=== PATIENT | female | born 1960 | race Caucasian/White ===

== ENCOUNTER → 2021-03-18 08:05 | Outpatient (BNVA) | payer BC, SELFPAY | PROVIDERS: PCP Internal Medicine; Visit Provider Internal Medicine ==

== ENCOUNTER → 2021-04-29 08:24 | Outpatient (BNVA) | payer BC, SELFPAY | PROVIDERS: PCP Internal Medicine; Visit Provider Internal Medicine | DX: G43.711 Chronic migraine without aura, intractable, with status migrainosus (principal) | CPT/HCPCS: 64615 ==

== ENCOUNTER → 2021-05-27 14:41 | Outpatient (BNVA) | payer BC, SELFPAY | PROVIDERS: PCP Internal Medicine; Visit Provider Internal Medicine ==

== ENCOUNTER 2021-06-13 08:00 | Outpatient (REF) | payer BC, SELFPAY ==
--- NOTE | ~2021-06-13 | MR_ITS ---
EXAMINATION: MR LUMBAR SPINE WITHOUT CONTRAST CLINICAL INFORMATION: Sciatica, left side. COMPARISON: None TECHNIQUE: MRI of the lumbar spine was obtained using routine sequences without contrast. FINDINGS: The lumbar vertebral bodies maintain normal heights. There is mild retrolisthesis of L1 on L2 and L2 on L3. There is multilevel intervertebral disc height loss. No bone marrow edema is seen. There is a prominent hemangioma at L3. The distal spinal cord appears normal. The conus medullaris terminates normally at the L1 level. The extraspinal soft tissues are within normal limits. SPINAL LEVELS: T12-L1: Right paracentral protrusion. No spinal canal or neural foraminal stenosis. L1-L2: Disc bulging with right paracentral extrusion with superior migration. Mild facet arthropathy. No spinal canal stenosis. Moderate left and mild right neural foraminal stenosis. L2-L3: Disc bulging asymmetric to the left with moderate left and mild right facet arthropathy resulting in mild spinal canal stenosis with left subarticular stenosis. Left and right foraminal protrusions resulting in compression of the left more than right L2 nerve roots. L3-L4: Disc bulging with severe facet arthropathy. No spinal canal stenosis. Right foraminal protrusion. Left more than right neural foraminal stenosis with compression of both exiting L3 nerve roots. L4-L5: Disc bulging with central protrusion and moderate facet arthropathy. No spinal canal stenosis. Bilateral neural foraminal stenosis with compression of both exiting L4 nerve roots. L5-S1: Disc bulging with facet arthropathy. No spinal canal stenosis. No nerve root compression. MR/MR lumbar spine wo con IMPRESSION: Multilevel degenerative spondylotic changes without evidence of high-grade spinal canal stenosis. Bilateral foraminal nerve root compression is seen at the L2-L3, L3-L4, and L4-L5 levels.
--- NOTE | ~2021-06-13 | XR_ITS ---
EXAMINATION: PRE-MRI LIMITED ORBITAL/FACIAL SERIES. CLINICAL INFORMATION: Pre-MRI orbits. Metal close eyes 15 years ago COMPARISON: None TECHNIQUE: Lateral facial bones/orbits and sidhu views with eyes looking up and down. FINDINGS: No radiopaque foreign body/metallic material is seen in the region of the orbits. No destructive bony lesion. There is partial opacification of the left maxillary sinus. Mastoid air cells appear aerated. XR/XR pre mri screening IMPRESSION: No metallic foreign body seen about the region of the orbits.
== END 2021-06-13 08:01 | disposition home or self-care (01) ==
LOC: HO.MRI 08:00
PROVIDERS: PCP Internal Medicine; Visit Provider Internal Medicine
DX: M54.32 Sciatica, left side (principal)
CPT/HCPCS: 72148

== ENCOUNTER → 2021-08-19 15:07 | Outpatient (BNVA) | payer BC, SELFPAY | PROVIDERS: PCP Internal Medicine; Visit Provider Internal Medicine ==

== ENCOUNTER → 2021-08-20 09:00 | Outpatient (BNVA) | payer BC, SELFPAY | PROVIDERS: PCP Internal Medicine; Visit Provider Internal Medicine | DX: G43.711 Chronic migraine without aura, intractable, with status migrainosus (principal) | CPT/HCPCS: 64615; J0585 ==

== ENCOUNTER 2021-12-27 05:54 | Outpatient (REF) | payer BC, SELFPAY | END 2021-12-27 05:55 | disposition home or self-care (01) | LOC: HO.RADIR 05:54 | PROVIDERS: Visit Provider Internal Medicine | DX: G43.711 Chronic migraine without aura, intractable, with status migrainosus (principal) | CPT/HCPCS: 64615; J0585 ==

== ENCOUNTER → 2022-03-21 09:47 | Outpatient (BNVA) | payer BC, SELFPAY | PROVIDERS: PCP Internal Medicine; Visit Provider Internal Medicine | DX: G43.711 Chronic migraine without aura, intractable, with status migrainosus (principal) | CPT/HCPCS: 64615 ==

== ENCOUNTER → 2022-06-06 10:52 | Outpatient (BNVA) | payer BC, SELFPAY | PROVIDERS: PCP Internal Medicine; Visit Provider Internal Medicine | DX: G43.711 Chronic migraine without aura, intractable, with status migrainosus (principal) | CPT/HCPCS: 64615; J0585 ==

== ENCOUNTER → 2022-08-15 09:07 | Outpatient (BNVA) | payer BC, SELFPAY | PROVIDERS: PCP Internal Medicine; Visit Provider Internal Medicine | DX: G43.711 Chronic migraine without aura, intractable, with status migrainosus (principal) | CPT/HCPCS: 64615 ==

== ENCOUNTER → 2022-11-10 11:34 | Outpatient (BNVA) | payer BC, SELFPAY | PROVIDERS: PCP Internal Medicine; Visit Provider Internal Medicine | DX: G43.711 Chronic migraine without aura, intractable, with status migrainosus (principal) | CPT/HCPCS: 64615 ==

== ENCOUNTER → 2023-02-09 11:29 | Outpatient (BNVA) | payer BC, SELFPAY | PROVIDERS: PCP Internal Medicine; Visit Provider Internal Medicine | DX: G43.711 Chronic migraine without aura, intractable, with status migrainosus (principal) | CPT/HCPCS: 64615; J0585 ==

== ENCOUNTER 2023-05-11 07:58 | Outpatient (AMB) | payer BC, SELFPAY ==
--- NOTE | 2023-05-11 08:02 | MHC.OFFVIS ---
Intake Vital Signs 05/11/23 08:08 Height 5 ft 7 in Weight 190 lb BMI 29.8 BP 126/88 Blood Pressure Location Lt brachial Position Sitting Respiration 14 Pulse 74 Pulse Source Pulse Oximeter Pulse Oximetry (%) 98 Oxygen Delivery Method Room Air Intake Visit Reasons: Botox Allergies Penicillins Allergy (Severe, Verified 05/11/23 08:09) Anaphylaxis Medication List - Last Reconciled 05/11/23 by Marilee Medina LPN cetirizine (24Hour Allergy) 10 mg PO DAILY PRN cholecalciferol (vitamin D3) 25 mcg PO DAILY dextroamphetamine-amphetamine 10 mg 10 mg PO DAILY dulaglutide (Trulicity) 3 mg subcut QWEEK fluoxetine 10 mg PO BID metformin 1,000 mg PO BID [id number]-[id number]-[id number] mcg (Centrum Silver Men) 1 tab PO DAILY onabotulinumtoxinA (Botox) 155 units intradermal ONCE sumatriptan succinate 25 mg PO Q2-4H PRN tamsulosin 0.4 mg PO BEDTIME vitamin A-vitamin C-vit E-min 1 tab PO DAILY HPI Botox HPI Details 62-year-old male who presents today to the office for a Botox treatment. Denies any recent cough, cold, infection, fever or other significant changes in medical history since last office visit. [facility] Medical History (Updated 05/27/21 @ 15:41 by Wayne Alcala MD) Tinnitus, left ear NAFLD (nonalcoholic fatty liver disease) HTN (hypertension) ADHD Depression Allergic rhinitis Migraines DM type 2 (diabetes mellitus, type 2) Review of Systems Const All systems reviewed & are unremarkable except as noted in HPI and below Physical Exam Vital Signs: Last Vital Signs Pulse 74 05/11/23 08:08 Resp 14 05/11/23 08:08 BP 126/88 05/11/23 08:08 Pulse Ox 98 05/11/23 08:08 Oxygen Delivery Method Room Air 05/11/23 08:08 BMI result Body Mass Index 29.8 General: Appears afebrile. Alert and oriented. Mood and affect appropriate. Follows and participates in conversation appropriately. Respiratory effort is unlabored. Able to transition from sit to stand unassisted. Ambulates with bilaterally normal heel strike and toe off. Office Procedures Botulinum toxin Injection Details: Chemodenervation of Scalp and Neck for Chronic Migraine (155units as per protocol approved by FDA) After obtaining written consent, pre-procedure blood pressure and heart rate were stable and recorded in the nursing record. The patient was placed in the sitting position. Bilaterally, 31 points along bonding machine setter (2 sites), procerus (1 site), frontalis (4 sites), temporalis (8 sites), occipitalis (6 sites), cervical paraspinals (4 sites), and trapezius (6 sites) were identified and prepped with alcohol. Using sterile technique, a 30 gauge 0.5 inch needle (for all sites other than trapezius) and 25 gauge 1.5 inch (for trapezius only) needle was introduced into each muscle and 5 units per site was injected. A total of 155 units were used. Aspirations were negative for blood, CSF and air prior to injection at all sites. The needle was removed, skin cleansed and a sterile bandage was applied where needed. The patient tolerated the procedure well and no complications were encountered. Following the procedure the patient's vital signs were stable. The patient was discharged home in good condition with post-procedural instructions. Time Out: Immediately prior to the procedure, the following was verbally confirmed that there is a signed consent form and that the correct patient, planned procedure, site and side are consistent with documentation and that necessary equipment and/or blood products are available prior to the start of the case. Complications: none EBL: <5 cc 04043 - Migraine Procedure code (CPT) selection complete Office Meds onabotulinumtoxinA 100 unit solution for injection Performing Provider: Wayne Alcala MD Performing Location: [facility] [place] [place] [facility] Administered by: Wayne Alcala MD on 05/11/23 11:32 Dose Route Admin Location Dispensed Lot Number Expiration Date [facility] [employer] Super[employer] 100 unit IM 1 ea [id number] 06/10/25 incobotulinumtoxinA 100 unit intramuscular solution Performing Provider: Wayne Alcala MD Performing Location: [facility] [place] [place] [facility] Administered by: Wayne Alcala MD on 05/11/23 11:32 Dose Route Admin Location Dispensed Lot Number Expiration Date [facility] [employer] Technical Supervisor 60 unit IM 1 ea [id number] 06/10/25 Assessment & Plan Assessment & Plan (1) Migraines: Code(s): G43.909 - Migraine, unspecified, not intractable, without status migrainosus Qualifiers: Intractability: intractable Migraine type: chronic without aura Status migrainosus presence: with status migrainosus Qualified Code(s): G43.711 - Chronic migraine without aura, intractable, with status migrainosus Plan Patient is status post intramuscular Botox injections for migraine. Patient tolerated procedure well and was discharged home in stable condition with discharge instructions. All questions were answered. Scribed for Dr. Alcala by Derick Manning, medical dermatologist, on 05/11/2023. I, Dr. Alcala, have personally reviewed and agree with the information entered by the scribe. Orders: Orders AMB Botulinum toxin Injection Today G43.909 - Migraine, unspecified, not intractable, without status migrainosus Coding Level of Care Code Procedure Only Diagnoses Intractable chronic migraine without aura and with status migrainosus G43.711 Intractability: intractable Migraine type: chronic without aura Status migrainosus presence: with status migrainosus CPT Codes Botox Injection - Botox 3: 78900 - Migraine ([id number])
[2023-05-11 08:08] VITALS: BP 126/88; PULSE 74; RESP 14; O2SAT 98; BMI 29.8
== END 2023-05-11 08:50 | disposition home or self-care (01) ==
PROVIDERS: PCP Internal Medicine; Visit Provider Internal Medicine
DX: G43.711 Chronic migraine without aura, intractable, with status migrainosus (principal)
CPT/HCPCS: 64615

== ENCOUNTER → 2023-05-11 07:58 | Outpatient (BNVA) | payer BC, SELFPAY | PROVIDERS: PCP Internal Medicine; Visit Provider Internal Medicine | DX: G43.711 Chronic migraine without aura, intractable, with status migrainosus (principal) | CPT/HCPCS: 64615; J0585; J0588 ==

== ENCOUNTER 2023-08-21 08:20 | Outpatient (AMB) | payer BC, SELFPAY ==
[2023-08-21 08:22] VITALS: PULSE 71; RESP 12; O2SAT 99; BMI 29.8
--- NOTE | 2023-08-21 08:22 | A.OFFVIS_ITS ---
Intake Vital Signs 08/21/23 08:22 Height 5 ft 7 in Weight 190 lb BMI 29.8 Blood Pressure Location Lt brachial Position Sitting Respiration 12 Pulse 71 Pulse Source Pulse Oximeter Pulse Oximetry (%) 99 Oxygen Delivery Method Room Air Intake Visit Reasons: Botox/confirmed Intake Note: Pt's BP 172/98- wouldn't save in above box Allergies Penicillins Allergy (Severe, Verified 08/21/23 08:25) Anaphylaxis Medication List - Last Reconciled 08/21/23 by Marilee Medina LPN cetirizine (24Hour Allergy) 10 mg PO DAILY PRN cholecalciferol (vitamin D3) 25 mcg PO DAILY dextroamphetamine-amphetamine 10 mg 10 mg PO DAILY dulaglutide (Trulicity) 3 mg subcut QWEEK fluoxetine 10 mg PO BID metformin 1,000 mg PO BID [id number]-[id number] [id number] mcg (Centrum Silver Men) 1 tab PO DAILY onabotulinumtoxinA (Botox) 155 units intradermal ONCE sumatriptan succinate 25 mg PO Q2-4H PRN tamsulosin 0.4 mg PO BEDTIME vitamin A-vitamin C-vit E-min 1 tab PO DAILY HPI Botox/confirmed HPI Details 62-year-old male who presents today to t he office for a Botox in [facility]. He has been receiving intramuscular Botox injections for migraine. Denies any recent cough, cold, infection, fever or other significant changes in medical history since last office visit. He reports neck and shoulder pain, which is bothersome. He has numbness in his arms and hands. He has difficulty sleeping on the side. He has tried physical therapy in the past without much benefit. He is interested in proceeding with an MRI scan of his neck to assess candidacy for further interventions. [facility] Medical History (Updated 08/21/23 @ 10:21 by Wayne Alcala MD) Tinnitus, left ear NAFLD (nonalcoholic fatty liver disease) HTN (hypertension) ADHD Depression Allergic rhinitis Migraines DM type 2 (diabetes mellitus, type 2) Review of Systems Const All systems reviewed & are unremarkable except as noted in HPI and below Physical Exam Vital Signs: Last Vital Signs Pulse 71 08/21/23 08:22 Resp 12 08/21/23 08:22 Pulse Ox 99 01/12/24 08:22 Oxygen Delivery Method Room Air 08/21/23 08:22 BMI result Body Mass Index 29.8 General: Appears afebrile. Alert and oriented. Mood and affect appropriate. Follows and participates in conversation appropriately. Respiratory effort is unlabored. Able to transition from sit to stand unassisted. Ambulates with bilaterally normal heel strike and toe off. Office Procedures Botulinum toxin Injection Details: Chemodenervation of Scalp and Neck for Chronic Migraine (155 units as per protocol approved by FDA) After obtaining written consent, pre-procedure blood pressure and heart rate were stable and recorded in the nursing record. The patient was placed in the sitting position. Bilaterally, 31 points along frame straightener (2 sites), procerus (1 site), frontalis (4 sites), temporalis (8 sites), occipitalis (6 sites), cervical paraspinals (4 sites), and trapezius (6 sites) were identified and prepped with alcohol. Using sterile technique, a 27 gauge 0.5 inch needle (for all sites other than trapezius) and 25 gauge 1.5 inch (for trapezius only) needle was introduced into each muscle and 5 units per site was injected. A total of 155 units were used. Aspirations were negative for blood, CSF and air prior to injection at all sites. The needle was removed, skin cleansed and a sterile bandage was applied where needed. The patient tolerated the procedure well and no complications were encountered. Following the procedure the patient's vital signs were stable. The patient was discharged home in good condition with post-procedural instructions. Time Out: Immediately prior to the procedure, the following was verbally confirmed that there is a signed consent form and that the correct patient, planned procedure, site and side are consistent with documentation and that necessary equipment and/or blood products are available prior to the start of the case. Complications: none EBL: <5 cc 65683 - Migraine Procedure code (CPT) selection complete Office Meds onabotulinumtoxinA 100 unit solution for injection Performing Provider: Wayne Alcala MD Performing Location: [facility] [place] [facility] Administered by: Wayne Alcala MD on 08/21/23 10:17 Dose Route Admin Location Dispensed Lot Number Expiration Date [facility] Armhole Presser 155 unit IM 155 ea [id number] 10/08/25 Results Reviewed Results Reviewed: No imaging is available for review. Assessment & Plan Assessment & Plan (1) Migraines: Code(s): G43.909 - Migraine, unspecified, not intractable, without status migrainosus Qualifiers: Migraine type: chronic without aura Status migrainosus presence: with status migrainosus Intractability: intractable Qualified Code(s): G43.711 - Chronic migraine without aura, intractable, with status migrainosus (2) Cervical radiculitis: Code(s): M54.12 - Radiculopathy, cervical region Plan Patient is status post intramuscular Botox injections for migraine. Patient tolerated procedure well and was discharged home in stable condition with discharge instructions. All questions were answered. Ordered MRI scan for cervical pain and radicular symptoms. Follow-up to review MRI results when it is done. Scribed for Dr. Alcala by Derick Manning, esthetician and manager medical spa, on 08/21/2023. I, Dr. Alcala, have personally reviewed and agree with the information entered by the scribe. Orders: Orders AMB Botulinum toxin Injection Today G43.909 - Migraine, unspecified, not intractable, without status migrainosus MR cervical spine wo con Today M54.12 - Radiculopathy, cervical region Coding Level of Care Code Est Pt Level 3 (51009) Diagnoses Intractable chronic migraine without aura and with status migrainosus G43.711 Migraine type: chronic without aura Status migrainosus presence: with status migrainosus Intractability: intractable Cervical radiculitis M54.12 CPT Codes Botox Injection - Botox 3: 72094 - Migraine ([id number])
== END 2023-08-21 08:45 | disposition home or self-care (01) ==
PROVIDERS: PCP Internal Medicine; Visit Provider Internal Medicine
DX: M54.12 Radiculopathy, cervical region (principal); G43.909 Migraine, unspecified, not intractable, without status migrainosus
CPT/HCPCS: 64615; 99213

== ENCOUNTER → 2023-08-21 08:20 | Outpatient (BNVA) | payer BC, SELFPAY | PROVIDERS: PCP Internal Medicine; Visit Provider Internal Medicine | DX: G43.711 Chronic migraine without aura, intractable, with status migrainosus (principal); M54.12 Radiculopathy, cervical region | CPT/HCPCS: 64615; J0585 ==

== ENCOUNTER 2023-09-17 19:25 | Outpatient (REF) | payer BC, SELFPAY ==
--- NOTE | ~2023-09-17 | MR_ITS ---
EXAMINATION: MR CERVICAL SPINE WITHOUT CONTRAST CLINICAL INFORMATION: 62-year-old with cervical radiculopathy. COMPARISON: None available. TECHNIQUE: MRI of the cervical spine was obtained using routine sequences without contrast. FINDINGS: Alignment: Mild mid cervical levocurvature noted, slightly convex to the left at C5. There is 2 mm of anterolisthesis at C6-C7. There is normal lordotic curvature. Craniocervical Junction/C1-C2 Articulations: Intact and aligned. There are degenerative changes at the atlantodental joint. Visualized Intracranial Structures: Within normal limits. Vertebral Bodies: Vertebral body heights are well maintained. Disc Spaces and Endplates: The intervertebral disc space heights are well maintained. There are minor degrees of anterior marginal endplate spurring between C4-C5 and C6-C7 inclusive. Endplates appear grossly intact. Bone Marrow: No suspicious marrow-replacing process or bone marrow edema. C2-C3: Central disc protrusion noted with mild indentation of the ventral thecal sac without cord impingement. There is uncovertebral spurring, right more than left, with marked right-sided and minimal left-sided facet arthropathy. There is cbxaznbg-af-uthlly right-sided and mild left-sided neural foraminal stenosis. Ligamentum flavum thickening is noted with no significant spinal canal stenosis. C3-C4: Broad-based central disc protrusion and right paramedian disc osteophyte complex noted with effacement of the ventral dural sac asymmetric to the right contacting the ventral spinal cord on the right. Mild spinal canal stenosis is noted. There is uncovertebral spurring and facet arthropathy, right more than left, with zzwbsdlj-er-avxzkd right-sided and mild left-sided foraminal stenosis. C4-C5: Shallow broad-based central disc protrusion, with flattening of the ventral dural sac without cord impingement. Ligamentum flavum thickening is noted with mild spinal canal stenosis. There is uncovertebral spurring and facet arthropathy with moderate left and mild right-sided neural foraminal stenosis. C5-C6: Central to left paramedian extruded disc herniation with mild cephalad migration, which may be partially calcified. There is effacement of the ventral dural sac asymmetric to the left, with moderate left-sided ventral cord impingement/deformity, with ligamentum flavum thickening and moderate central spinal canal stenosis, asymmetric to the left. Uncovertebral spurring and facet arthropathy is also noted bilaterally with severe left-sided and moderate right-sided neural foraminal stenosis. C6-C7: Slight unroofing of the posterior disc margin is noted with a superimposed central to right paramedian disc herniation and effacement of the ventral dural sac, asymmetric to the right, abutting the ventral spinal cord with mild right-sided ventral cord deformity/impingement. Ligament flavum thickening is noted with moderate spinal canal stenosis, asymmetric to the right. Uncovertebral spurring and facet arthropathy is noted, right more than left, with ntmgcvnt-fw-ximlcz right-sided neural foraminal stenosis. Small bilateral perineural cysts in the neural foramina. C7-T1: No disc herniation or canal stenosis. Moderate bilateral facet joint arthropathy noted with uncovertebral spurring bilaterally. Fsqlhlst-mm-aupxjk bilateral neural foraminal stenosis is noted. A 7 mm perineural cyst in the left neural foramen. SPINAL CORD: Allowing for artifacts, no definite focal spinal cord lesion, edema or syrinx. EXTRACRANIAL SOFT TISSUES: There is a 1 cm T2 bright focus partially imaged in the right parotid gland superficial lobe, which is nonspecific. Signal voids are noted in the visualized major arterial and venous structures. MR/MR cervical spine wo con IMPRESSION: 1. Mild mid cervical levocurvature noted with mild anterolisthesis at C6-C7. 2. Multilevel central disc herniations and disc osteophyte complex as described above with multilevel ventral cord impingement/deformity and multilevel envm-xyh-cyymsclj spinal canal stenosis, most apparent at C5-C6 and C6-C7. 3. Multilevel DJD as described above with multilevel bilateral bony neural foraminal stenosis as detailed by level above. 4. A 1 cm T2 bright focus in the superficial lobe of the right parotid gland which is nonspecific. Recommend correlation with physical examination and consider focused ultrasound of the right parotid gland for further assessment.
== END 2023-09-17 19:26 | disposition home or self-care (01) ==
LOC: HO.MRI 19:25
PROVIDERS: PCP Internal Medicine; Visit Provider Internal Medicine
DX: M54.12 Radiculopathy, cervical region (principal)
CPT/HCPCS: 72141

== ENCOUNTER 2023-10-22 06:12 | Outpatient (REF) | payer BC, SELFPAY ==
--- NOTE | ~2023-10-22 | FL_ITS ---
EXAMINATION: XR FLUOROSCOPY WITH IMAGES CLINICAL INFORMATION: Cervical radiculopathy. COMPARISON: None available. TECHNIQUE: Fluoroscopy Supervised By: Dr. Wayne Alcala. Fluoroscopy Time: 1.0 minutes. Cumulative Dose: 7.77 mGy. DAP: 0.0314 mGym2. Images: 4. FINDINGS: The submitted images show an injection needle overlapping the cervical spine and injected epidural contrast. FL/FL guidance in treatment room IMPRESSION: Intraoperative fluoroscopic guidance is provided during cervical spinal pain management procedure. Please see the patient's Operative Report for full procedural details.
== END 2023-10-22 06:13 | disposition home or self-care (01) ==
LOC: CF 06:12
PROVIDERS: Visit Provider Internal Medicine
DX: M54.12 Radiculopathy, cervical region (principal)
CPT/HCPCS: 62321; J1100; J2795; Q9967

== ENCOUNTER 2023-10-22 12:57 | Outpatient (AMB) | payer BC, SELFPAY ==
[2023-10-22 14:06] VITALS: BP 142/90; PULSE 76; RESP 16; O2SAT 95; BMI 29.8
--- NOTE | 2023-10-22 14:06 | MHC.OFFVIS ---
Intake Vital Signs 10/22/23 14:06 10/22/23 14:07 Height 5 ft 7 in Weight 190 lb BMI 29.8 BP 142/90 H 140/80 H Blood Pressure Location Lt brachial Lt brachial Position Sitting Sitting Respiration 16 18 Pulse 76 80 Pulse Source Pulse Oximeter Pulse Oximeter Pulse Oximetry (%) 95 97 Oxygen Delivery Method Room Air Room Air Comment Pre-Op Post-Op Intake Visit Reasons: Right C7-T1 KENNEDY Allergies Penicillins Allergy (Severe, Verified 08/21/23 08:25) Anaphylaxis HPI Right C7-T1 KENNEDY HPI Details Patient presents for scheduled procedure. Denies any recent cough, cold, infection, fever or other significant changes in medical history since last office visit. [facility] Medical History (Updated 08/21/23 @ 10:21 by Wayne Alcala MD) Tinnitus, left ear NAFLD (nonalcoholic fatty liver disease) HTN (hypertension) ADHD Depression Allergic rhinitis Migraines DM type 2 (diabetes mellitus, type 2) Physical Exam Vital Signs: Last Vital Signs Pulse 80 10/22/23 14:07 Resp 18 10/22/23 14:07 BP 140/80 H 10/22/23 14:07 Pulse Ox 97 10/22/23 14:07 Oxygen Delivery Method Room Air 10/22/23 14:07 BMI result Body Mass Index 29.8 Office Procedures Joint Injection/Drain Joint Injection/Drain Details: Interlaminar epidural steroid injection, C7-T1, right parasaggital After obtaining written consent, pre-procedure blood pressure and heart rate were stable and recorded in the nursing record. The patient was placed in the prone position. The [anatomic] area was widely prepped with chloraprep and draped in sterile fashion. Fluoroscopic guidance was used to identify the desired interlaminar space and for needle placement. Subcutaneous 0.5% lidocaine was used to anesthetize the skin overlying the target. A 20-gauge Wynn needle was advanced to the epidural space using loss of resistance to contrast technique under fluoroscopic AP and contralateral oblique views. There was no evidence of heme or CSF and no paresthesias were elicited with needle placement. Confirmation of epidural needle placement was performed with 3 cc of omnipaque 180. Next 3 ml 0.5% lidocaine mixed with 10 mg dexamethasone was administered epidurally with no pain elicited on injection. The needle tract tubing was then cleared with 1 ml of 0.5% lidocaine. The needle was removed, skin cleansed and a sterile bandage was applied. The patient tolerated the procedure well and no complications were encountered. Following the procedure the patient's vital signs were stable. The patient was discharged home in good condition with post-procedural instructions. Time Out: Immediately prior to the procedure, the following was verbally confirmed that there is a signed consent form and that the correct patient, planned procedure, site and side are consistent with documentation and that necessary equipment and/or blood products are available prior to the start of the case. Complications: none EBL: <5 cc Coding 00026 - Cervical Epidural/Interlaminar with fluoroscopy Procedure code (CPT) selection complete Assessment & Plan Assessment & Plan (1) Cervical radiculitis: Code(s): M54.12 - Radiculopathy, cervical region Plan Patient is status post right parasagittal C7-T1 interlaminar KENNEDY. Patient tolerated procedure well and was discharged home in stable condition with discharge instructions. All questions were answered. We will follow-up via telephone or in clinic to assess response to therapy. A follow-up appointment was made during today's visit. Coding Level of Care Code Procedure Only Diagnoses Cervical radiculitis M54.12 CPT Codes Coding - Joint 10: 60843 - Cervical Epidural/Interlaminar with fluoroscopy ([id number])
[2023-10-22 14:07] VITALS: BP 140/80; PULSE 80; RESP 18; O2SAT 97
== END 2023-10-22 14:01 | disposition home or self-care (01) ==
LOC: HO.PMCPRC 12:57
PROVIDERS: PCP Internal Medicine; Visit Provider Internal Medicine
DX: M54.12 Radiculopathy, cervical region (principal)
CPT/HCPCS: 62321

== ENCOUNTER 2023-11-20 08:24 | Outpatient (AMB) | payer BC, SELFPAY ==
--- NOTE | 2023-11-20 08:34 | A.OFFVIS_ITS ---
Intake Vital Signs 11/20/23 08:36 Height 5 ft 7 in Weight 190 lb BMI 29.8 BP 155/82 H Blood Pressure Location Lt brachial Position Sitting Respiration 14 Pulse 64 Pulse Source Pulse Oximeter Pulse Oximetry (%) 97 Oxygen Delivery Method Room Air Intake Visit Reasons: Botox injection Allergies Penicillins Allergy (Severe, Verified 11/20/23 08:37) Anaphylaxis Medication List - Last Reconciled 11/20/23 by Marilee Medina LPN cetirizine (24Hour Allergy) 10 mg PO DAILY PRN cholecalciferol (vitamin D3) 25 mcg PO DAILY dextroamphetamine-amphetamine 10 mg 10 mg PO DAILY dulaglutide (Trulicity) 3 mg subcut QWEEK fluoxetine 10 mg PO BID metformin 1,000 mg PO BID [id number] [id number] mcg (Centrum Silver Men) 1 tab PO DAILY onabotulinumtoxinA (Botox) 155 units intradermal ONCE sumatriptan succinate 25 mg PO Q2-4H PRN tamsulosin 0.4 mg PO BEDTIME vitamin A-vitamin C-vit E-min 1 tab PO DAILY HPI Botox injection HPI Details 63-year-old male who presents today to t he office for a Botox injection. He has been receiving intramuscular Botox injections for migraine. Denies any recent cough, cold, infection, fever or other significant changes in medical history since last office visit. Past procedure 10/22/23: Interlaminar epidural steroid injection, C7-T1, right parasaggital: Moderate neck relief, unchanged shoulder pain [facility] Medical History (Updated 08/21/23 @ 10:21 by Wayne Alcala MD) Tinnitus, left ear NAFLD (nonalcoholic fatty liver disease) HTN (hypertension) ADHD Depression Allergic rhinitis Migraines DM type 2 (diabetes mellitus, type 2) Review of Systems Const All systems reviewed & are unremarkable except as noted in HPI and below Physical Exam Vital Signs: Last Vital Signs Pulse 64 11/20/23 08:36 Resp 14 11/20/23 08:36 BP 155/82 H 11/20/23 08:36 Pulse Ox 97 11/20/23 08:36 Oxygen Delivery Method Room Air 11/20/23 08:36 BMI result Body Mass Index 29.8 General: Appears afebrile. Alert and oriented. Mood and affect appropriate. Follows and participates in conversation appropriately. Respiratory effort is unlabored. Able to transition from sit to stand unassisted. Ambulates with bilaterally normal heel strike and toe off. Office Procedures Botulinum toxin Injection Details: Chemodenervation of Scalp and Neck for Chronic Migraine (155units as per protocol approved by FDA) After obtaining written consent, pre-procedure blood pressure and heart rate were stable and recorded in the nursing record. The patient was placed in the sitting position. Bilaterally, 31 points along piledriver carpenter (2 sites), procerus (1 site), frontalis (4 sites), temporalis (8 sites), occipitalis (6 sites), cervical paraspinals (4 sites), and trapezius (6 sites) were identified and prepped with alcohol. Using sterile technique, a 30 gauge 0.5 inch needle (for all sites other than trapezius) and 25 gauge 1.5 inch (for trapezius only) needle was introduced into each muscle and 5 units per site was injected. A total of 155 units were used. Aspirations were negative for blood, CSF and air prior to injection at all sites. The needle was removed, skin cleansed and a sterile bandage was applied where needed. The patient tolerated the procedure well and no complications were encountered. Following the procedure the patient's vital signs were stable. The patient was discharged home in good condition with post-procedural instructions. Time Out: Immediately prior to the procedure, the following was verbally confirmed that there is a signed consent form and that the correct patient, planned procedure, site and side are consistent with documentation and that necessary equipment and/or blood products are available prior to the start of the case. Complications: none EBL: <5 cc 28937 - Migraine Procedure code (CPT) selection complete Office Meds onabotulinumtoxinA 100 unit solution for injection Performing Provider: Wayne Alcala MD Performing Location: [facility] Administered by: Wayne Alcala MD on 11/20/23 09:13 Dose Route Admin Location Dispensed Lot Number Expiration Date [facility] Road Machinery Inspector 155 unit subcut 200 units [id number] 10/08/25 1322-5672-18 [employer]ERGAN/BOTOX Results Reviewed Results Reviewed: No imaging is available for review. Assessment & Plan Assessment & Plan (1) Migraines: Code(s): G43.909 - Migraine, unspecified, not intractable, without status migrainosus Qualifiers: Intractability: intractable Migraine type: chronic without aura Status migrainosus presence: with status migrainosus Qualified Code(s): G43.711 - Farm Facility Manager rigo migraine without aura, intractable, with status migrainosus Plan Patient is status post intramuscular Botox injections for migraine. Patient tolerated procedure well and was discharged home in stable condition with discharge instructions. All questions were answered. Scribed for Dr. Alcala by Derick Manning, durable medical equipment technician, on 11/20/2023. I, Dr. Alcala, have personally reviewed and agree with the information entered by the scribe. Orders: Orders AMB Botulinum toxin Injection Today G43.711 - Chronic migraine without aura, intractable, with status migrainosus Coding Level of Care Code Procedure Only Diagnoses Intractable chronic migraine without aura and with status migrainosus G43.711 Intractability: intractable Migraine type: chronic without aura Status migrainosus presence: with status migrainosus CPT Codes Botox Injection - Botox 3: 31693 - Migraine ([id number])
[2023-11-20 08:36] VITALS: BP 155/82; PULSE 64; RESP 14; O2SAT 97; BMI 29.8
== END 2023-11-20 09:11 | disposition home or self-care (01) ==
PROVIDERS: PCP Internal Medicine; Visit Provider Internal Medicine
DX: G43.711 Chronic migraine without aura, intractable, with status migrainosus (principal)
CPT/HCPCS: 64615

== ENCOUNTER → 2023-11-20 08:24 | Outpatient (BNVA) | payer BC, SELFPAY | PROVIDERS: PCP Internal Medicine; Visit Provider Internal Medicine | DX: G43.711 Chronic migraine without aura, intractable, with status migrainosus (principal); Z79.899 Other long term (current) drug therapy | CPT/HCPCS: 64615; J0585 ==

== ENCOUNTER 2024-02-19 08:16 | Outpatient (AMB) | payer BC, SELFPAY ==
[2024-02-19 08:25] VITALS: BP 146/86; PULSE 67; RESP 14; O2SAT 98; BMI 29.8
--- NOTE | 2024-02-19 08:25 | MHC.OFFVIS ---
Vital Signs 02/19/24 08:25 Height 5 ft 7 in Weight 190 lb BMI 29.8 BP 146/86 H Blood Pressure Location Lt brachial Position Sitting Respiration 14 Pulse 67 Pulse Source Pulse Oximeter Pulse Oximetry (%) 98 Oxygen Delivery Method Room Air Intake Visit Reasons: BOTOX Allergies Penicillins Allergy (Severe, Verified 02/19/24 08:26) Anaphylaxis Medication List - Last Reconciled 02/19/24 by Marilee Medina LPN cetirizine (24Hour Allergy) 10 mg PO DAILY PRN cholecalciferol (vitamin D3) 25 mcg PO DAILY dextroamphetamine-amphetamine 10 mg 10 mg PO DAILY dulaglutide (Trulicity) 3 mg subcut QWEEK fluoxetine 10 mg PO BID metformin 1,000 mg PO BID ad-tjy-ihbar-[id number]-iskgizi-phaeka [id number] mcg (Centrum Silver Men) 1 tab PO DAILY onabotulinumtoxinA (Botox) 155 units intradermal ONCE sumatriptan succinate 25 mg PO Q2-4H PRN tamsulosin 0.4 mg PO BEDTIME vitamin A-vitamin C-vit E-min 1 tab PO DAILY HPI HPI BOTOX : Details: 63-year-old male who presents today to the office for a Botox injection. He has been receiving intramuscular Botox injections for migraine. Denies any recent cough, cold, infection, fever, or other significant changes in medical history since the last office visit. The cervical epidural injection did not provide significant relief. He continues to have pain with shoulder range of motion despite physical therapy for his neck and shoulder. His therapist has been doing dry needling. He states that his initial pain has been the same as before. He started using CBD cream for pain. He has concerns about his elevated blood sugar level. He has been profusely sweating for the past two days.? Past procedures 11/20/23: Chemodenervation of Scalp and Neck for Chronic Migraine (155units as per protocol approved by FDA): % relief. 10/22/23: Interlaminar epidural steroid injection, C7-T1, right parasaggital: Moderate neck relief, unchanged shoulder pain [facility] Medical History (Updated 02/19/24 @ 08:44 by Wayne Alcala MD) Tinnitus, left ear NAFLD (nonalcoholic fatty liver disease) HTN (hypertension) ADHD Depression Allergic rhinitis Migraines DM type 2 (diabetes mellitus, type 2) Review of Systems Const All systems reviewed & are unremarkable except as noted in HPI and below Physical Exam Vital Signs: Last Vital Signs Pulse 67 02/19/24 08:25 Resp 14 02/19/24 08:25 BP 146/86 H 02/19/24 08:25 Pulse Ox 98 02/19/24 08:25 Oxygen Delivery Method Room Air 02/19/24 08:25 BMI result Body Mass Index 29.8 General: Appears afebrile. Alert and oriented. Mood and affect appropriate. Follows and participates in conversation appropriately. Respiratory effort is unlabored. Able to transition from sit to stand unassisted. Ambulates with bilaterally normal heel strike and toe off. There is limitation of shoulder abduction above the level of the head. Office Procedures Botulinum toxin Injection Details: Chemodenervation of Scalp and Neck for Chronic Migraine (155 units as per protocol approved by FDA) After obtaining written consent, pre-procedure blood pressure and heart rate were stable and recorded in the nursing record. The patient was placed in the sitting position. Bilaterally, 31 points along end touching machine operator (2 sites), procerus (1 site), frontalis (4 sites), temporalis (8 sites), occipitalis (6 sites), cervical paraspinals (4 sites), and trapezius (6 sites) were identified and prepped with alcohol. Using sterile technique, a 30 gauge 0.5 inch needle (for all sites other than trapezius) and 25 gauge 1.5 inch (for trapezius only) needle was introduced into each muscle and 5 units per site was injected. A total of 155 units were used. Aspirations were negative for blood, CSF and air prior to injection at all sites. The needle was removed, skin cleansed and a sterile bandage was applied where needed. The patient tolerated the procedure well and no complications were encountered. Following the procedure the patient's vital signs were stable. The patient was discharged home in good condition with post-procedural instructions. Time Out: Immediately prior to the procedure, the following was verbally confirmed that there is a signed consent form and that the correct patient, planned procedure, site and side are consistent with documentation and that necessary equipment and/or blood products are available prior to the start of the case. Complications: none EBL: <5 cc 70841 - Migraine Procedure code (CPT) selection complete Office Meds onabotulinumtoxinA 200 unit solution for injection Performing Provider: Wayne Alcala MD Performing Location: [facility] [place] [facility] Administered by: Wayne Alcala MD on 02/19/24 08:47 Dose Route Admin Location Dispensed Lot Number Expiration Date [employer] Child And Adolescent Psychologist 200 unit IM 155 ea [id number] 07/10/26 Results Reviewed Results Reviewed: No imaging is available for review. Assessment & Plan Assessment & Plan (1) Rotator cuff impingement syndrome: Code(s): M75.40 - Impingement syndrome of unspecified shoulder Category: Medical (2) Migraines: Code(s): G43.909 - Migraine, unspecified, not intractable, without status migrainosus Category: Medical Qualifiers: Intractability: intractable Migraine type: chronic without aura Status migrainosus presence: with status migrainosus Qualified Code(s): G43.711 - Chronic migraine without aura, intractable, with status migrainosus (3) Cervical radiculitis: Code(s): M54.12 - Radiculopathy, cervical region Category: Medical Plan Patient is status post intramuscular Botox injections for migraine. Patient tolerated procedure well and was discharged home in stable condition with discharge instructions. All questions were answered. Follow up in three months for repeat Botox injection. MRI of the right shoulder to assess for rotator cuff integrity and consider surgical referral if needed. Scribed for Dr. Alcala by Derick Manning, medical sonographer, on 02/15/2024. I, Dr. Alcala, have personally reviewed and agree with the information entered by the scribe. Orders: Orders MR shoulder RT wo con Today G43.711 - Chronic migraine without aura, intractable, with status migrainosus, M54.12 - Radiculopathy, cervical region, M75.40 - Impingement syndrome of unspecified shoulder AMB Botulinum toxin Injection Today G43.909 - Migraine, unspecified, not intractable, without status migrainosus Coding Level of Care Code Est Pt Level 4 (12843) Diagnoses Rotator cuff impingement syndrome M75.40 Intractable chronic migraine without aura and with status migrainosus G43.711 Intractability: intractable Migraine type: chronic without aura Status migrainosus presence: with status migrainosus Cervical radiculitis M54.12 CPT Codes Botox Injection - Botox 3: 56449 - Migraine ([id number])
== END 2024-02-19 08:50 | disposition home or self-care (01) ==
PROVIDERS: PCP Internal Medicine; Visit Provider Internal Medicine
DX: M75.40 Impingement syndrome of unspecified shoulder (principal); M25.511 Pain in right shoulder; M54.12 Radiculopathy, cervical region; G43.711 Chronic migraine without aura, intractable, with status migrainosus; G43.909 Migraine, unspecified, not intractable, without status migrainosus
CPT/HCPCS: 64615; 99213

== ENCOUNTER → 2024-02-19 08:16 | Outpatient (BNVA) | payer BC, SELFPAY | PROVIDERS: PCP Internal Medicine; Visit Provider Internal Medicine | DX: G43.711 Chronic migraine without aura, intractable, with status migrainosus (principal); M75.40 Impingement syndrome of unspecified shoulder; M54.12 Radiculopathy, cervical region | CPT/HCPCS: 64615; J0585 ==

== ENCOUNTER 2024-04-04 19:03 | Outpatient (REF) | payer BC, SELFPAY ==
--- NOTE | ~2024-04-04 | MR_ITS ---
EXAMINATION: MR SHOULDER WITHOUT CONTRAST, RIGHT CLINICAL INFORMATION: Impingement syndrome. Pain. COMPARISON: None available. TECHNIQUE: MRI of the shoulder without contrast was performed on a high-field scanner. FINDINGS: ROTATOR CUFF: Mild supraspinatus tendinosis. A 0.8 x 0.8 cm partial-thickness bursal surface tear in the mid/posterior fibers. Mild infraspinatus tendinosis, possible ill-defined intrasubstance tear in the mid fibers. Teres minor is intact. Mild subscapularis tendinosis, deep surface fraying. No muscle atrophy or fatty infiltration. BICEPS: Attenuation and partial tearing of the proximal biceps tendon as it courses within the bicipital groove. CORACOACROMIAL ARCH: The undersurface of the acromion is mildly curved with no subacromial spur. Moderate-severe acromioclavicular arthritis. Prominent undersurface spurring of the distal clavicle. Mild subacromial subdeltoid bursitis. LABRUM/CAPSULE: Superior and posterior labral degeneration. No definitive tear is seen. GLENOHUMERAL JOINT/MARROW: Mild glenohumeral joint arthritis. Greater tuberosity subcortical degenerative cyst. No fracture. No significant effusion. MR/MR shoulder RT wo con IMPRESSION: 1. Mild supraspinatus tendinosis. A 0.8 x 0.8 cm partial-thickness bursal surface tear. 2. Mild infraspinatus tendinosis, possible ill-defined intrasubstance tear. 3. Mild subscapularis tendinosis, deep surface fraying. 4. Attenuation and partial tearing of the proximal biceps tendon. 5. Moderate-severe acromioclavicular arthritis. Mild subacromial subdeltoid bursitis. 6. Mild glenohumeral joint arthritis. Electronically signed by: Quentin De La Rosa MD 04/06/2024 03:10 PM EDT
== END 2024-04-04 19:04 | disposition home or self-care (01) ==
LOC: HO.MRI 19:03
PROVIDERS: PCP Internal Medicine; Visit Provider Internal Medicine
DX: G43.711 Chronic migraine without aura, intractable, with status migrainosus (principal); M54.12 Radiculopathy, cervical region; M75.41 Impingement syndrome of right shoulder
CPT/HCPCS: 73221

== ENCOUNTER 2024-05-20 07:58 | Outpatient (AMB) | payer BC, SELFPAY ==
--- NOTE | 2024-05-20 08:03 | A.OFFVIS_ITS ---
Vital Signs 05/20/24 08:04 Height 5 ft 7 in Weight 200 lb BMI 31.3 BP 181/89 H Blood Pressure Location Lt brachial Position Sitting Respiration 14 Pulse 76 Pulse Source Pulse Oximeter Pulse Oximetry (%) 97 Oxygen Delivery Method Room Air Intake Visit Reasons: Botox Allergies Penicillins Allergy (Severe, Verified 05/20/24 08:06) Anaphylaxis Medication List - Last Reconciled 05/20/24 by Marilee Medina LPN cetirizine (24Hour Allergy) 10 mg PO DAILY PRN cholecalciferol (vitamin D3) 25 mcg PO DAILY dextroamphetamine-amphetamine 10 mg 10 mg PO DAILY dulaglutide (Trulicity) 3 mg subcut QWEEK fluoxetine 10 mg PO BID metformin 1,000 mg PO BID kr-wdz-ndujv-O2-tfbizqr-nfucyb [id number] mcg (Centrum Silver Men) 1 tab PO DAILY onabotulinumtoxinA (Botox) 155 units intradermal ONCE sumatriptan succinate 25 mg PO Q2-4H PRN tamsulosin 0.4 mg PO BEDTIME vitamin A-vitamin C-vit E-min 1 tab PO DAILY HPI HPI Botox: Details: 63-year-old female who presents today to the office for Botox injections. He has been receiving intramuscular Botox injections for migraine. Denies any recent cough, cold, infection, fever, or other significant changes in medical history since the last office visit. Past procedures Chemodenervation of Scalp and Neck for Chronic Migraine: Consistent relief. 10/22/23: Interlaminar epidural steroid injection, C7-T1, right parasaggital: Moderate neck relief, unchanged shoulder pain [facility] [place] Medical History (Updated 02/19/24 @ 08:44 by Wayne Alcala MD) Tinnitus, left ear NAFLD (nonalcoholic fatty liver disease) HTN (hypertension) ADHD Depression Allergic rhinitis Migraines DM type 2 (diabetes mellitus, type 2) Review of Systems Const All systems reviewed & are unremarkable except as noted in HPI and below Physical Exam Vital Signs: Last Vital Signs Pulse 76 05/20/24 08:04 Resp 14 05/20/24 08:04 BP 181/89 H 05/20/24 08:04 Pulse Ox 97 05/20/24 08:04 Oxygen Delivery Method Room Air 05/20/24 08:04 BMI result Body Mass Index 31.3 General: Appears afebrile. Alert and oriented. Mood and affect appropriate. Follows and participates in conversation appropriately. Respiratory effort is unlabored. Able to transition from sit to stand unassisted. Ambulates with bilaterally normal heel strike and toe off. Office Procedures Botulinum toxin Injection Details: Chemodenervation of Scalp and Neck for Chronic Migraine (155 units as per protocol approved by FDA) After obtaining written consent, pre-procedure blood pressure and heart rate were stable and recorded in the nursing record. The patient was placed in the sitting position. Bilaterally, 31 points along preschool paraprofessional (2 sites), procerus (1 site), frontalis (4 sites), temporalis (8 sites), occipitalis (6 sites), cervical paraspinals (4 sites), and trapezius (6 sites) were identified and prepped with alcohol. Using sterile technique, a 30 gauge 0.5 inch needle (for all sites other than trapezius) and 25 gauge 1.5 inch (for trapezius only) needle was introduced into each muscle and 5 units per site was injected. A total of 155 units were used. Aspirations were negative for blood, CSF and air prior to injection at all sites. The needle was removed, skin cleansed and a sterile bandage was applied where needed. The patient tolerated the procedure well and no complications were encountered. Following the procedure the patient's vital signs were stable. The patient was discharged home in good condition with post-procedural instructions. Time Out: Immediately prior to the procedure, the following was verbally confirmed that there is a signed consent form and that the correct patient, planned procedure, site and side are consistent with documentation and that necessary equipment and/or blood products are available prior to the start of the case. Complications: none EBL: <5 cc 10860 - Migraine Procedure code (CPT) selection complete Results Reviewed Results Reviewed: No imaging is available for review. Assessment & Plan Assessment & Plan (1) Migraines: Code(s): G43.909 - Migraine, unspecified, not intractable, without status migrainosus Category: Medical Qualifiers: Migraine type: chronic without aura Status migrainosus presence: with status migrainosus Intractability: intractable Qualified Code(s): G43.711 - Chronic migraine without aura, intractable, with status migrainosus Plan Patient is status post intramuscular Botox injections for migraine. Patient tolerated procedure well and was discharged home in stable condition with discharge instructions. All questions were answered. Follow up in three months for repeat Botox injection. Scribed for Dr. Alcala by Derick Manning, registered medical assistant, on 05/20/2024. I, Dr. Alcala, have personally reviewed and agree with the information entered by the scribe. Coding Level of Care Code Procedure Only Diagnoses Intractable chronic migraine without aura and with status migrainosus G43.711 Migraine type: chronic without aura Status migrainosus presence: with status migrainosus Intractability: intractable CPT Codes Botox Injection - Botox 3: 31817 - Migraine ([id number])
[2024-05-20 08:04] VITALS: BP 181/89; PULSE 76; RESP 14; O2SAT 97; BMI 31.3
== END 2024-05-20 08:37 | disposition home or self-care (01) ==
PROVIDERS: PCP Internal Medicine; Visit Provider Internal Medicine
DX: G43.711 Chronic migraine without aura, intractable, with status migrainosus (principal)
CPT/HCPCS: 64615

== ENCOUNTER → 2024-05-20 07:58 | Outpatient (BNVA) | payer BC, SELFPAY | PROVIDERS: PCP Internal Medicine; Visit Provider Internal Medicine | DX: G43.711 Chronic migraine without aura, intractable, with status migrainosus (principal) | CPT/HCPCS: 64615; J0585 ==

== ENCOUNTER 2024-08-22 09:43 | Outpatient (AMB) | payer BC, SELFPAY ==
--- NOTE | 2024-08-22 09:51 | MHC.OFFVIS ---
Vital Signs 08/22/24 09:52 Height 5 ft 7 in Weight 200 lb BMI 31.3 BP 140/86 H Blood Pressure Location Lt brachial Position Sitting Respiration 16 Pulse 63 Pulse Source Pulse Oximeter Pulse Oximetry (%) 98 Oxygen Delivery Method Room Air Intake Visit Reasons: BOTOX INJECTION Allergies Penicillins Allergy (Severe, Verified 08/22/24 09:55) Anaphylaxis Medication List - Last Reconciled 08/22/24 by Marilee Medina LPN cetirizine (24Hour Allergy) 10 mg PO DAILY PRN cholecalciferol (vitamin D3) 25 mcg PO DAILY dextroamphetamine-amphetamine 10 mg 10 mg PO DAILY dulaglutide (Trulicity) 3 mg subcut QWEEK fluoxetine 10 mg PO BID metformin 1,000 mg PO BID [id number]-mks-npmun-[id number]-iwawhsq-rveuvo [id number] mcg (Centrum Silver Men) 1 tab PO DAILY onabotulinumtoxinA (Botox) 155 units intradermal ONCE sumatriptan succinate 25 mg PO Q2-4H PRN tamsulosin 0.4 mg PO BEDTIME vitamin A-vitamin C-vit E-min 1 tab PO DAILY HPI HPI BOTOX INJECTION: Details: Patient presents for scheduled procedure. Denies any recent cough, cold, infection, fever or other significant changes in medical history since last office visit. [facility] Medical History (Updated 02/19/24 @ 08:44 by Wayne Alcala MD) Tinnitus, left ear NAFLD (nonalcoholic fatty liver disease) HTN (hypertension) ADHD Depression Allergic rhinitis Migraines DM type 2 (diabetes mellitus, type 2) Physical Exam Vital Signs: Last Vital Signs Pulse 63 08/22/24 09:52 Resp 16 08/22/24 09:52 BP 140/86 H 08/22/24 09:52 Pulse Ox 98 08/22/24 09:52 Oxygen Delivery Method Room Air 08/22/24 09:52 BMI result Body Mass Index 31.3 Office Procedures Botulinum toxin Injection Details: Chemodenervation of Scalp and Neck for Chronic Migraine (155 units as per protocol approved by FDA) After obtaining written consent, pre-procedure blood pressure and heart rate were stable and recorded in the nursing record. The patient was placed in the sitting position. Bilaterally, 31 points along electrician supervisor (2 sites), procerus (1 site), frontalis (4 sites), temporalis (8 sites), occipitalis (6 sites), cervical paraspinals (4 sites), and trapezius (6 sites) were identified and prepped with alcohol. Using sterile technique, a 30 gauge 0.5 inch needle (for all sites other than trapezius) and 25 gauge 1.5 inch (for trapezius only) needle was introduced into each muscle and 5 units per site was injected. A total of 155 units were used. Aspirations were negative for blood, CSF and air prior to injection at all sites. The needle was removed, skin cleansed and a sterile bandage was applied where needed. The patient tolerated the procedure well and no complications were encountered. Following the procedure the patient's vital signs were stable. The patient was discharged home in good condition with post-procedural instructions. Time Out: Immediately prior to the procedure, the following was verbally confirmed that there is a signed consent form and that the correct patient, planned procedure, site and side are consistent with documentation and that necessary equipment and/or blood products are available prior to the start of the case. Complications: none EBL: <5 cc 94113 - Migraine Procedure code (CPT) selection complete Office Meds onabotulinumtoxinA 200 unit solution for injection Performing Provider: Wayne Alcala MD Performing Location: [facility] Administered by: Wayne Alcala MD on 08/23/24 10:53 Dose Route Admin Location Dispensed Lot Number Expiration Date [facility] Wide Piece Goods Inspector 200 unit IM 155 ea [id number] 11/08/26 Assessment & Plan Assessment & Plan (1) Migraines: Code(s): G43.909 - Migraine, unspecified, not intractable, without status migrainosus Category: Medical Qualifiers: Intractability: intractable Migraine type: chronic without aura Status migrainosus presence: with status migrainosus Qualified Code(s): G43.711 - Chronic migraine without aura, intractable, with status migrainosus Plan Patient is status post Botox injection migraine protocol. Patient tolerated procedure well and was discharged home in stable condition with discharge instructions. All questions were answered. We will follow-up via telephone or in clinic to assess response to therapy. A follow-up appointment was made during today's visit. Orders: Orders AMB Botulinum toxin Injection 08/22/24 G43.909 - Migraine, unspecified, not intractable, without status migrainosus Coding Level of Care Code Procedure Only Diagnoses Intractable chronic migraine without aura and with status migrainosus G43.711 Intractability: intractable Migraine type: chronic without aura Status migrainosus presence: with status migrainosus CPT Codes Botox Injection - Botox 3: 01459 - Migraine ([id number])
[2024-08-22 09:52] VITALS: BP 140/86; PULSE 63; RESP 16; O2SAT 98; BMI 31.3
== END 2024-08-22 10:41 | disposition home or self-care (01) ==
PROVIDERS: PCP Internal Medicine; Visit Provider Internal Medicine
DX: G43.909 Migraine, unspecified, not intractable, without status migrainosus (principal)
CPT/HCPCS: 64615

== ENCOUNTER → 2024-08-22 09:43 | Outpatient (BNVA) | payer BC, SELFPAY | PROVIDERS: PCP Internal Medicine; Visit Provider Internal Medicine | DX: G43.711 Chronic migraine without aura, intractable, with status migrainosus (principal) | CPT/HCPCS: 64615; J0585 ==

== ENCOUNTER 2024-11-15 09:37 | Outpatient (REF) | payer BC, SELFPAY ==
--- NOTE | 2024-11-15 09:40 | EMG_ITS ---
Bilateral median and ulnar motor and sensory studies were performed. Bilateral radial sensory studies were performed and paraspinal muscles were tested with a needle. IMPRESSION: 1. [id number] bilateral median neuropathy across carpal tunnel. 2. 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 3. Chronic right mid cervical radiculopathy. MD GONZALO Hansen/CHELO / [id number]
--- OUTSIDE RECORDS SUMMARY | 2024-11-15 10:53 | XMS_ITS | Encounter Summary ---
Author Organization [facility] Address [address] [place] [address] Care Team Providers Care Director Machine Name Role Phone Landry Lauren DO Primary Care Provider [phone] Encounter Details Date Type Department Care Team (Late st Contact Info) Description 07/28/2024 Lab Requisition [facility] Lab [address] [facility] [email or web address] [phone] Landry Lauren DO [address] [place] [phone] Frequency of micturition Social History Tobacco Use Types Packs/Day Years Used Date Smoking Tobacco: Every Day Cigarettes Smokeless Tobacco: Never Alcohol Use Standard Drinks/Week Comments No 0 (1 standard drink = 0.6 oz pur e alcohol) Sex and Gender Information Value Date Recorded Sex Assigned at Not on file Legal Sex Male 9:04 AM EST Gender Identity Not on file Sexual Orientation Not on file documented as of this encounter Plan of Treatment Not on file documented as of this encounter Procedures Procedure Name Priority Date/Time Associated Diagnosis Comments NON-GYNECOLOGIC CYTOLOGY Routine 07/21/2024 12:00 AM EST Frequency of micturition documented in this encounter Results * Non-gynecologic cytology (07/21/2024 12:00 AM EST) Final Diagnosis Urine, Voided: Rare atypical urothelial cells. 07/29/2024 6:06 PM EST [facility] ([facility]) [facility] Specimen A Adequacy Satisfactory for evaluation 07/29/2024 6:06 PM [facility] Gross Description A. Urine, Voided, : Received 50 ml of yellow fluid; 1 ThinPrep, 07/29/2024 6:06 PM [facility] Disclaimer Unless otherwise specified, all tissue is 10% NB formalin fixed and paraffin embedded. Technical cytopathology services provided by [facility], at [address] [place] [address] (CLIA # [id number]/Romaine Rodriguez MD, [employer].) 07/29/2024 6:06 PM [facility] Urine Urine specimen from urethra / Unknown 07/21/2024 07/28/2024 10:54 AM EST Landry Lauren DO LAB CYTOLOGY ORDERABLES Final Result [facility] [address] [place] [address], documented in this encounter Visit Diagnoses Diagnosis Frequency of micturition Urinary frequency documented in this encounter Care Teams Director Machine Relationship Specialty Start Date End Date Landry Lauren DO [address] [place] [phone] PCP - General Internal Medicine 03/12/22 documented as of this encounter
--- OUTSIDE RECORDS SUMMARY | 2024-11-15 10:53 | XMS_ITS | Data Portability ---
Author Organization [place] - [facility], Allergy Address [address] [address] Care Team Providers Care Medicine Worker Name Role Phone FIDELINA RAMOS Primary Care Provider [phone] FIDELINA RAMOS Referring Provider Assessment Encounter Date Assessment Date Assessment LastModified by Organization Details LastModified Time 03/28/2024 03/28/2024 63 year old male presents to the office reporting 45 year history of sinuses, allergies, migraines and persistent postnasal drip. I have recommended that he stop the Tylenol sinus to avoid rebound congestion. I have recommended that he start magnesium 200-400 mg daily as well as Astelin daily. He reports that Flonase aggravates his migraine. He does take a B complex vitamin daily. We will obtain CT of his sinuses. His total nasal symptom score is 11. In the future if his symptoms persist he may benefit from RhinAer procedure. Written information given to him to review the procedure online. [email or web address] Not available 03/28/2024 12:31:39 05/20/2024 05/20/2024 Chronic sinus pressure and PND. Presently receiving Botox for migraine and those symptoms are better. He still feels pressure between his eyes and chronic postnasal drip despite the Astelin. He has tried other intranasal steroids without improvement. He is also been on oral steroids without improvement. At this point I have recommended a trial of enhanced delivery fluticasone. Hopefully we can reduce the inflammation of the ethmoid and frontal sinuses. It is difficult to sort out how much of his discomfort is related to migraine versus allergy/sinus congestion. If no improvement with the enhanced delivery fluticasone we may need to consider revision surgery. f/u 3-4 months sancho Not available 05/20/2024 14:06:16 07/28/2024 07/28/2024 Patient with generalized anxiety, polypoid sinus degeneration and allergy with migraine headaches. He seems to respond briefly to oral steroids. He has mild polypoid degeneration right greater than left. Suggest IgE level and CBC with differential. He may be candidate for biologic therapy with Dupixent or Nucala. I am not sure that surgery will solve his pain. sancho Not available 07/28/2024 14:18:46 11/09/2024 11/09/2024 Patient with generalized anxiety, polypoid sinus degeneration and allergy with migraine headaches. He seems to respond briefly to oral steroids. He has mild polypoid degeneration right greater than left. Suggest IgE level and CBC with differential. He is a candidate for biologic therapy with Dupixent or Nucala. I am not sure that surgery will solve his pain.I am not sure why his insurance company will not cover the Dupixent as he has been on multiple topical nasal steroids (fluticasone, mometasone, budesonide), oral antihistamines, montelukast and has had prior surgery. sancho Not available 11/09/2024 13:24:00 Plan of Treatment Reminders Order Date Submit Date Provider Last Modified By Organization Details Last Modified Time Details Appointments Establ ished 30 2024 01:00P M KENDALL CULVER MD Not available Not available Not available Lab ige, total, serum 2023 CHRISTA [facility] (Centralized Electronic Ordering - All Locations), Patient Can Go To The Location Of Their Choice, [id number] 07/30/2024 20:16:29 CBC w/ auto diff 2023 024 CHRISTA [facility] (Centralized Electronic Ordering - All Locations), Patient Can Go To The Location Of Their Choice, [id number] 07/30/2024 20:16:29 Referral None record ed. Procedures None record ed. Surgeries None record ed. Imaging CT, sinuse s, w/o contra st 2023 [email or web address] [facility], [address] [place] [address] [place], [address], 05/20/2024 12:49:34 CT, maxill ofacia l, w/o contra st 2023 024 [email or web address] [facility], [address] [place] [address], [phone], 04/25/2024 14:03:17 Medication Orders budeso nide 0.5 mg/2 mL suspen duncan for nebuli zation 2024 025 [id number], [address] [place] [address], [phone], 11/09/2024 13:25:01 Dupixe nt 300 mg/2 mL subcut aneous pen inject or 2024 025 [facility] #[id number], [address] [place] [address], [phone], 11/09/2024 13:25:56 Xhance 93 mcg/ac tuatio n breath activa sandee aeroso l 2023 024 [facility] (New Address), [address] [place] [address], [address], [place], [phone], 05/20/2024 13:15:15 Patient TargetsNo targets recorded. Patient InstructionsNo instructions recorded. Reason for Referral None Reported. Results Created Date Observation Date Name Description Value Unit Range Abnormal Flag Note LastModifiedBy Organization Detail LastModifiedTime 07/28/20 24 07/29/2024 CBC WITH DIFFE RENTI AL/PL ATELE T WBC 5.9 x10e3 /uL 3.4-10 .8 normal Not Available [facility] ([facility]) [address] [facility], [place], [address], 07/30/2024 20:16:29 07/28/20 24 07/29/2024 CBC WITH DIFFE RENTI AL/PL ATELE T RBC 5.19 x10e6 /uL 4.14-5 .80 normal Not Available [facility] ([facility]) [address] [place], [address], 07/30/2024 20:16:29 07/28/20 24 07/29/2024 CBC WITH DIFFE RENTI AL/PL ATELE T hemoglobin 14.6 g/dL 13.0-1 7.7 normal Not Available [facility] ([facility]) [address] [place], [address], 07/30/2024 20:16:29 07/28/20 24 07/29/2024 CBC WITH DIFFE RENTI AL/PL ATELE T hematocrit 45.9 % 37.5-5 1.0 normal Not Available [facility] ([facility]) [address] [place], [address], 07/30/2024 20:16:29 07/28/20 24 07/29/2024 CBC WITH DIFFE RENTI AL/PL ATELE T MCV 88 fL 79-97 normal Not Available [facility] ([facility]) [address] [place], [address], 07/30/2024 20:16:29 07/28/20 24 07/29/2024 CBC WITH DIFFE RENTI AL/PL ATELE T MCH 28.1 pg 26.6-3 3.0 normal Not Available [facility] ([facility]) [address] [place], [address], 07/30/2024 20:16:29 07/28/20 24 07/29/2024 CBC WITH DIFFE RENTI AL/PL ATELE T MCHC 31.8 g/dL 31.5-3 5.7 normal Not Available [facility] ([facility]) [address] [place], [address], 07/30/2024 20:16:29 07/28/20 24 07/29/2024 CBC WITH DIFFE RENTI AL/PL ATELE T RDW 12.4 % 11.6-1 5.4 Not Available [facility] ([facility]) [address] [facility], [place], [address], 07/30/2024 20:16:29 07/28/20 24 07/29/2024 CBC WITH DIFFE RENTI AL/PL ATELE T platelets 161 x10e3 /uL 150-45 0 normal Not Available [facility] ([facility]) [address] [facility], [place], [address], 07/30/2024 20:16:29 07/28/20 24 07/29/2024 CBC WITH DIFFE RENTI AL/PL ATELE T neutrophils 57 % not estab. normal Not Available [facility] ([facility]) [address] [facility], [place], [address], 07/30/2024 20:16:29 07/28/20 24 07/29/2024 CBC WITH DIFFE RENTI AL/PL ATELE T lymphs 26 % not estab. normal Not Available [facility] ([facility]) [address] [facility], [place], [address], 07/30/2024 20:16:29 07/28/20 24 07/29/2024 CBC WITH DIFFE RENTI AL/PL ATELE T monocytes 8 % not estab. normal Not Available [facility] ([facility]) [address] [facility], [place], [address], 07/30/2024 20:16:29 07/28/20 24 07/29/2024 CBC WITH DIFFE RENTI AL/PL ATELE T eos 8 % not estab. normal Not Available [facility] ([facility]) [address] [place], [address], 07/30/2024 20:16:29 07/28/20 24 07/29/2024 CBC WITH DIFFE RENTI AL/PL ATELE T basos 1 % not estab. normal Not Available [facility] ([facility]) [address] [place], [address], 07/30/2024 20:16:29 07/28/20 24 07/29/2024 CBC WITH DIFFE RENTI AL/PL ATELE T immature cells [employer] Not Available [facility] ([facility]) [address] [facility], [place], [address], 07/30/2024 20:16:29 07/28/20 24 07/29/2024 CBC WITH DIFFE RENTI AL/PL ATELE T neutrophils (absolute) 3.3 x10e3 /uL 1.4-7. 0 normal Not Available [facility] ([facility]) [address] [facility], [place], [address], 07/30/2024 20:16:29 07/28/20 24 07/29/2024 CBC WITH DIFFE RENTI AL/PL ATELE T lymphs (absolute) 1.5 x10e3 /uL 0.7-3. 1 normal Not Available [facility] ([facility]) [address] [place], [address], 07/30/2024 20:16:29 07/28/20 24 07/29/2024 CBC WITH DIFFE RENTI AL/PL ATELE T monocytes(ab solute) 0.5 x10e3 /uL 0.1-0. 9 normal Not Available [facility] ([facility]) [address] [place], [address], 07/30/2024 20:16:29 07/28/20 24 07/29/2024 CBC WITH DIFFE RENTI AL/PL ATELE T eos (absolute) 0.5 x10e3 /uL 0.0-0. 4 above high normal Not Available [facility] ([facility]) [address] [place], [address], 07/30/2024 20:16:29 07/28/20 24 07/29/2024 CBC WITH DIFFE RENTI AL/PL ATELE T baso (absolute) 0.1 x10e3 /uL 0.0-0. 2 normal Not Available [facility] ([facility]) [address] [facility], [place], [address], 07/30/2024 20:16:29 07/28/20 24 07/29/2024 CBC WITH DIFFE RENTI AL/PL ATELE T immature granulocytes 0 % not estab. Not Available [facility] ([facility]) [address] [facility], [place], [address], 07/30/2024 20:16:29 07/28/20 24 07/29/2024 CBC WITH DIFFE RENTI AL/PL ATELE T immature grans (abs) 0.0 x10e3 /uL 0.0-0. 1 Not Available [facility] ([facility]) [address] [facility], [place], [address], 07/30/2024 20:16:29 07/28/20 24 07/29/2024 CBC WITH DIFFE RENTI AL/PL ATELE T NRBC [employer] Not Available [facility] ([facility]) [address] [facility], [place], [address], 07/30/2024 20:16:29 07/28/20 24 07/29/2024 CBC WITH DIFFE RENTI AL/PL ATELE T hematology comments: [employer] Not Available [facility] ([facility]) [address] [facility], [place], [address], 07/30/2024 20:16:29 07/28/20 24 07/30/2024 IMMUN OGLOB ULIN E, TOTAL immunoglobul in E, total 269 IU/mL 6-495 Not Available [facility] ([facility]) [address] [facility], [place], [address], 07/30/2024 20:16:29 08/02/20 24 08/05/2024 C-ANC A+P-A NCA W/REF AUGUSTINA cytoplasmic (C-anca) <1:20 titer neg:<1 :20 Not Available [facility] ([facility]) [address] [facility], [place], [address], 08/06/2024 06:28:18 08/02/20 24 08/05/2024 C-ANC A+P-A NCA W/REF AUGUSTINA perinuclear (P-anca) <1:20 titer neg:<1 :20 The prese nce of posit judy fluor escen ce exhib iting P-ANC A or C-ANC A patte rns alone is not speci fic for the diagn osis of Wegen er's Granu lomat osis (WG) or micro scopi c polya ngiit is. Decis ions about treat ment shoul d not be based solel y on ANCA IFA resul ts. The Inter natio nal ANCA [employer] Conse nsus recom mends follo w up testi ng of posit judy sera with both MT-3 and MPO-A NCA enzym e immun oassa ys. As many as 5% serum sampl es are posit judy only by EIA. Ref. AM J Clin Patho l 1999; 111:5 07-51 3. Not Available [facility] ([facility]) [address] [facility], [place], [address], 08/06/2024 06:28:18 08/02/20 24 08/06/2024 MYELO PEROX IDASE (MPO) myeloperoxid ase (mpo) 438 pmol/ L 0-469 Low CVD Risk <470 Moder ate Risk 470 - 539 High Risk >539 Not Available [facility] ([facility]) [address] [facility], [place], [address], 08/06/2024 06:28:19 08/02/20 24 08/02/2024 SEDIM ENTAT ION RATE- WESTE RGREN sedimentatio n rate-westerg solange 2 mm/HR 0-30 normal Not Available [facility] ([facility]) [address] [facility], [place], [address], 08/06/2024 06:28:20 08/20/12/23/2019 imagi ng/di agnos tic resul t No observ ation record ed. [email or web address] Not Available 14:54:58 03/29/2012/23/2019 audio gram No observ ation record ed. [email or web address] Not Available 14:55:01 05/20/20 CT, sinus es, w/o contr ast No observ ation record ed. [facility] [address], [address], 05/20/2024 12:49:28 05/23/20 audio gram No observ ation record ed. [email or web address] Not Available 05/10 09:35:11 05/30/20 24 05/20/2024 CT, sinus es, w/o contr ast No observ ation record ed. [facility] [place] [address], [place], [address], 05/30/2024 16:57:59 Result Notes None recorded. Problems Name Problem SNOMED Code Status Onset Date Resolution Date Notes Provider Name and Address Organization Details Recorded Time Bilateral tinnitus 20198749766 02 Active 2019 Tinnitus, bilateral ; Note: Date Diagnosed : 12/23/2019 9:14 AM (H93.13) Not Available [facility] 4 03:23:04 Sensorine ural hearing loss of bilateral ears 134814531 Active 2019 Sensorine ural hearing loss, bilateral ; Note: Date Diagnosed : 12/23/2019 9:40 AM (H90.3) Not Available [facility] 4 03:23:03 Chronic rhinitis 87397004 Active 2019 Chronic rhinitis; Note: Date Diagnosed : 12/23/2019 9:14 AM (J31.0) Not Available [facility] 4 03:23:03 Migraine 44132943 Active 2019 Other migraine, not intractab le, with status migrainos us; Note: Date Diagnosed : 12/23/2019 9:14 AM (G43.801) Not Available [facility] 4 03:23:03 Chronic sinusitis 02423318 Active 2023 PAIGE SARAVIA PA-C [address] [facility] [facility] [place],[address], [place], [place], [address] , [facility] - [facility] 4 11:35:51 Abnormal auditory perceptio n 98435889 Active 2023 KENDALL IRENE MD [address] [facility],[place] [address], [place], [place], [address] , [facility] - [facility] [place] 4 13:13:50 Abnormal auditory perceptio n 32355889 Active 2023 KENDALL IRENE MD [address] [facility],[place] [address], [place], [place], [address] , [facility] - [facility] [place] 4 13:14:03 Anxiety 67186602 Active 2023 KENDALL IRENE MD [address] [facility],[place] [address], [place], [address] , [facility] - [facility] [place] 4 14:17:18 Polypoid sinus degenerat ion 94238943 Active 2023 KENDALL IRENE MD [address] [facility],[place] [address], [place], [place], [address] , [facility] - [facility] [place] 4 14:17:24 Polyp of nasal cavity 257475707 Active 2023 KENDALL IRENE MD [address] [facility],[address] [facility], [place], [place], [address] , [facility] - [facility] [place] 4 14:17:36 Eosinophi l count above reference range 535803948 Active 2023 KENDALL IRENE MD [address] [facility],[address], [place], [place], [address] , [facility] - [facility] [place] 4 17:12:49 Sinusitis co-occurr ent with nasal polyps 98254547034 102 Active 2023 KENDALL IRENE MD [address], [facility] [place], [address] , [place] - [facility] [place] 4 17:13:02 Polyp of nasal cavity and/or nasal sinus 864151886 Active 2023 KENDALL IRENE MD [address] [facility] [address] [facility], [place], [address] , [place] - [facility] [place] 4 17:14:06 Problem Notes None recorded. Procedures Surgical History Date Name Laterality Status Provider Name and Address Organization Details Recorded Time 5 JMSNasal/Sinus Endoscopy-PRIOR surgical cavities completed KENDALL ALAMO MD [address] [facility] [place],[address], [address], [place] - [facility] [place] 11/09/2024 13:22:35 4 JMSNasal/Sinus Endoscopy-PRIOR surgical cavities completed KENDALL ALAMO MD [address] [facility] [place] [address], [place], [address], [place] - [facility] [place] 07/28/2024 14:17:10 4 Comp Audio with Tymps (45728 & 52509) completed ANA SANCHEZ [address] [facility] [place] [address], [place], [address], [place] - [facility] [place] 05/20/2024 13:42:34 4 JMSNasal/Sinus Endoscopy-PRIOR surgical cavities completed KENDALL ALAMO MD [address] [facility] [place],[address], [address], [place] - [facility] [place] 03/28/2024 12:32:38 5 Sinus Surgery completed Harshad Lopez [place] - [facility] [place] 03/28/2024 11:00:10 functional endoscopic sinus surgery completed KENDALL ALAMO MD [address], [address], [place] - [facility] [place] 05/20/2024 12:50:32 Imaging Results Imaging Date Name Status LastModified by [facility] Details LastModified Time 12/23/2019 imaging/diagno stic result completed Information not available 03/29/2024 14:54:58 12/23/2019 audiogram completed Information not available 03/29/2024 14:55:01 05/20/2024 CT, sinuses, w/o contrast completed [facility] [address], [address], 05/20/2024 12:49:28 05/23/2024 audiogram completed [email or web address] Information n ot available 05/23/2024 09:35:11 05/20/2024 CT, sinuses, w/o contrast completed [facility] [address] [facility] [address], [place], [address], 05/30/2024 16:57:59 Procedure Notes None recorded. Medical Equipment None Reported. Allergies Allergen ID Allergen Name Allergen Category Reaction Reaction Severity Criticality Documentation Date Start Date Code Code System Note Provider Name and Address Organization Details Recorded Time penicilli n V potassium medicatio n other Not available Not available 12/22/2023 5 RxNorm React ion: unkno wn, unspe cifie d;; Not Available [facility] 4 00:49:12 Medications Name Sig Start Date Stop Date Status Note LastModified by Organization Details LastModified Time atorvasta tin 40 mg tablet TAKE 1 TABLET BY MOUTH DAILY active Not Available Not Available No t Available diclofena c 3 % topical gel APPLY TOPICALL Y TO THE AFFECTED AREA TWICE DAILY active Not Available Not Available No t Available dextroamp hetamine- amphetami ne 10 mg tablet TAKE 1 TABLET BY MOUTH TWICE DAILY active Not Available Not Available No t Available metformin 850 mg tablet TAKE 1 TABLET BY MOUTH TWICE DAILY WITH A MEAL 11/09 completed Not Available Not Available Not Available sumatript an 50 mg tablet TAKE 1 TABLET BY MOUTH NEEDED active Not Available Not Available No t Available meclizine 12.5 mg tablet TAKE 1 TABLET BY MOUTH EVERY 12 HOURS FOR 4 DAYS NEEDED 11/09 completed Not Available Not Available Not Available Zyrtec 10 mg tablet 11/09 completed Medicati on ID: [id number] D uration Value: 30 Brand Name: Zyrtec S end Method: E-Prescr ibed Sub s Allowed: subs OK Speci al Instruct ion: TK 1 T PO HS Medic ationGen ericName : Zyrtec Not Available Not Available Not Available metformin 1,000 mg tablet TAKE 1 TABLET BY MOUTH TWICE DAILY active Not Available Not Available No t Available fluoxetin e 10 mg capsule TAKE 2 CAPSULES BY MOUTH EVERY DAY active Not Available Not Available No t Available budesonid e 0.5 mg/2 mL suspensio n for nebulizat ion Inhale 1 vial twice a day 2024 active Not Available Not Available Not Avai lable mupirocin 2 % topical ointment Apply 1 a small amount to affected area every eight hours 11/09 completed Medicati on ID: [id number] D uration Value: 10 Prescri bed By Name: Mode Hollins nd Name: marquisi jenni Send Method: E-Prescr ibed Sub s Allowed: subs OK Speci al Instruct ion: place along the nasal aperture three times daily Me dication GenericN louis: mupiroci n Not Available Not Available Not Available azelastin e 137 mcg (0.1 %) nasal spray USE 1 SPRAY IN EACH NOSTRIL TWICE DAILY active Not Available Not Available No t Available methylpre dnisolone 4 mg tablets in a dose pack 11/09 completed Not Available Not Available Not Available albuterol sulfate HFA 90 mcg/actua tion aerosol inhaler INHALE 2 INHALATI ON BY MOUTH EVERY 6 HOURS OR DIRECTED 15 MINUTES BEFORE EXERCISE active Not Available Not Available No t Available Botox 100 unit injection 11/09 completed Not Available Not Available Not Available Lantus Solostar U-100 Insulin 100 unit/mL (3 mL) subcutane ous pen INJECT 18 UNITS UNDER SKIN AT NIGHT. ADJUST BY 2 UNITS EVERY 3 DAYS FOR A FASTING BLOOD SUGAR OF 120 TO 130. MAX DOSE 60 UNITS active Not Available Not Available No t Available Botox 200 unit injection active Not Available Not Available No t Available Dupixent 300 mg/2 mL subcutane ous syringe ADMINIST ER 2 ML UNDER THE SKIN EVERY 2 WEEKS active Not Available Not Available No t Available Xhance 93 mcg/actua tion breath activated aerosol 2023 active Not Available Not Available Not Avai lable Multilex 15 mg iron tablet 11/09 completed Medicati on ID: [id number] B rand Name: Ximena Send Method: E-Prescr ibed Sub s Allowed: subs OK Medic ationGen ericName : Multilex Not Available Not Available Not Available BD Savanah 2nd Gen Pen Needle 32 gauge x USE TO INJECT LANTUS DAILY active Not Available Not Available No t Available FreeStyle Andrea 2 Sensor kit USE DIRECTED TO CHECK BLOOD SUGARS EVERY DAY active Not Available Not Available No t Available Dupixent 300 mg/2 mL subcutane ous pen injector Inject 2 mL every 2 weeks by subcutan eous route. 2024 active Not Available Not Available Not Avai lable Trulicity 3 mg/0.5 mL subcutane ous pen injector ADMINIST ER 3 MG UNDER THE SKIN ONCE A WEEK 11/09 completed Not Available Not Available Not Available Trulicity 4.5 mg/0.5 mL subcutane ous pen injector ADMINIST ER 4.5MG UNDER THE SKIN ONCE A WEEK active Not Available Not Available No t Available FreeStyle Andrae 3 Avalon USE TO CHECK GLUCOSE AT LEAST 4 TIMES DAILY active Not Available Not Available No t Available FreeStyle Andrea 3 Plus Sensor device USE TO CHECK BLOOD GLUCOSE 4 TIMES DAILY active Not Available Not Available No t Available Vitals Date Recorded Body height Body mass index (BMI) Body weight Provider Name and Address Organization Details Last Updated DateTime 11/09/2024 170.18 cm 30.5 kg/m2 04679.51 g Lilly Huerta [place] - [facility] 11/09/2024 13:00:08 Date Recorded Body height Body mass index (BMI) Body weight Provider Name and Address Organization Details Last Updated DateTime 03/28/2024 170.18 cm 29.8 kg/m2 57646.55 g Harshad Lopez [place] - [facility] 03/28/2024 11:05:35 Date Recorded Body height Body mass index (BMI) Body weight Provider Name and Address Organization Details Last Updated DateTime 07/28/2024 170.18 cm 32.1 kg/m2 07711.44 g Harshad Lopez [place] - [facility] 07/28/2024 13:48:04 Social History None recorded. Functional Status None recorded. Mental Status None recorded. Family History Nothing Reported. Medical History Condition Response Anxiety Y Migraines Y Nasal or Sinus Problems Y Nasal polyps Y Past Encounters Encounter ID Performer Location Encounter Start Date Encounter Closed Date Diagnosis/Indication Diagnosis SNOMED-CT Code Diagnosis ICD10 Code Diagnosis Note [id number] KENDALL IRENE MD [facility] [address] [address] 03/28/2024 10:18:36 03/28/2024 11:43:41 Chronic rhinitis 26457138 J31.0 Consider PNN ablation TNSS=11 (2 for sneezing) Chronic sinusitis 481046 00 J32.9 Migraine 78830136 G43.80 1 [id number] KENDALL IRENE MD [facility] [address] [address] 05/20/2024 12:31:43 05/20/2024 14:29:13 Chronic sinusitis 69079767 J32.9 Migraine 71787692 G43.80 1 Abnormal a uditory perception 84960478 H93.293 Sensorineu ral hearing loss of bilateral ears 787011629 H90.3 Audiologic al evaluation results: Right ear: {{Normal N ormal through 2 kHz Mild M oderate Mo derately-s evere Rosenda re Profoun d Normal through 4 kHz#}} {{hearing sloping to a mild slopi ng to a moderate s loping to moderately severe* sl oping to severe slo ping to profound f lat high frequency low frequency mid frequency cookie bite manriquez curve}} {{with sen sorineural hearing loss with* cond uctive hearing loss with mixed hearing loss with}} {{excellen t* good fa ir poor no measurable }} word recognitio n. Left ear: {{Normal N ormal through 2 kHz Mild M oderate Mo derately-s evere Rosenda re Profoun d Normal through 3 kHz#}} {{hearing sloping to a mild slopi ng to a moderate s loping to moderately severe slo ping to severe* sl oping to profound f lat high frequency low frequency mid frequency cookie bite manriquez curve}} {{with sen sorineural hearing loss with* cond uctive hearing loss with mixed hearing loss with}} {{excellen t* good fa ir poor no measurable }} word recognitio n. Tympanomet ry: Right Ear:{{Type A* Type As Type Ad Type C Type C, shallow & rounded Ty pe B Type B with large volume Cou ld not maintain a hermetic seal}} Left Ear:{{Type A* Type As Type Ad Type C Type C, shallow & rounded Ty pe B Type B with large volume Cou ld not maintain a hermetic seal}} Bilateral tinnitus 36793 [id number] 102 H93.13 [id number] KENDALL IRENE MD [facility] [address] [id number] 07/28/2024 13:36:50 07/28/2024 14:20:39 Migraine [id number] G43.801 Anxiety 85051325 F41.9 Polypoid s inus degeneration 10609289 J33.1 Polyp of nasal cavity 73 4328974 J33.0 [id number] KENDALL IRENE MD [facility] [address] [address] 11/09/2024 12:49:36 11/09/2024 13:30:06 Migraine 22644661 G43.801 Anxiety 34041104 F41.9 Polypoid s inus degeneration 48622502 J33.1 Polyp of nasal cavity 73 9181977 J33.0 Health Concerns Section Related Observation LastModified by Organization Detai ls LastModified Time None Recorded Concern Status LastModified by Organization Details LastModified Time None Recorded Advance Directives Directive None Recorded Payers Encounter Date Sequence Insurance Name Policy Number Policy Randall Covered Member ID Randall Member ID Guarantor Name 03/28/2024 1 [facility] [id number] Irwin Jeongchiarelli [id number] Irwin Taylor 05/20/2024 1 [facility] [id number] Irwin Musa Vecchiarelli Sr [id number] Irwin V Vecchiarelli Sr 07/28/2024 1 [facility] ([facility]) [id number] Irwin Musa Vecchiarelli Sr [id number] Irwin V Vecchiarelli Sr 11/09/2024 1 [employer] [facility] WINNIE [facility] ([facility]) [id number] Irwin Musa Vecchiarelli Sr [id number] Irwin V Vecchiarelli Sr Notes Date Note Type Note Provider Name and Address Organization Details Recorded Time 03/28/2024 text/html 63 year old male with hx of remote sinus surgery mid . Hx of bilateral tinnitus worse in the right ear. Hx of BRUCE treated with CPAP He presents to the office reporting 45 year history of sinuses, allergies, migraines and persistent postnasal drip. He cannot sleep at night because he feels that the sinuses fill up if he lays on one side or the other. If he lays on his back the postnasal drip bothers him. His symptoms are worse with changes in the weather. He reports constant pain and facial pressure. He has had botox for 9 months for migraines which has improved a lot of the headache portion of his symptoms but he has persistent facial pain and pressure. He has been told by two oral surgeons that there is an impacted wisdom tooth that has grown into the sinuses and they do not recommend extraction. He does saline Navage regularly. He takes tylenol sinus daily and benadryl every night. He has had allergy testing and shots in the past both at this office and the [facility] clinic without relief of his symptoms. He drinks very little caffeine. KENDALL ALAMO MD [address] [place] [address],[address], [phone], [facility] 03/28/2024 12:32:56 05/20/2024 text/html Chronic sinus pressure and PND. Presently receiving Botox for migraine and those symptoms are better. He still feels pressure between his eyes and chronic postnasal drip despite the Astelin. He has tried other intranasal steroids without improvement. He is also been on oral steroids without improvement. he notes hearing difficulty at home and trouble with blue tooth device in left ear KENDALL ALAMO MD [address] [place] [address],[address], [phone], [facility] 05/20/2024 14:06:20 07/28/2024 text/html Patient with his tory of allergy and chronic sinusitis. He previously underwent sinus surgery. He does also have migraine and chronic sinus pain. He feels more congested right greater than left. He has been on topical steroids and Astelin with minimal improvement. Recently had a course of steroids for what he describes as sinus migraine. This helped his head symptoms a little bit but now he feels symptoms have recurred. Sx worse with weather changes KENDALL ALAMO MD [address] [facility] [employer],[address], [phone], [facility] 07/28/2024 14:19:26 11/09/2024 text/html Patient with his tory of nasal congestion, polypoid sinus degeneration and elevation of eosinophil count. Presently not taking Dupixent as insurance would not approveHe has previously tried fluticasone, mometasone, oral antihistamines and montelukast without improvement. He had an elevated eosinophil count of 8% and history of prior sinus surgery Patient with history of allergy and chronic sinusitis. He previously underwent sinus surgery. He does also have migraine and chronic sinus pain. He feels more congested right greater than left. He has been on topical steroids and Astelin with minimal improvement. Recently had a course of steroids for what he describes as sinus migraine. This helped his head symptoms a little bit but now he feels symptoms have recurred. Sx worse with weather changes KENDALL ALAMO MD [address] [facility] [facility] [place],[facility], [place], [phone], [facility] 11/09/2024 13:26:35
--- OUTSIDE RECORDS SUMMARY | 2024-11-15 10:53 | XMS_ITS | Clinical Summary ---
Author Organization [address] [facility] Address [address] [facility] [place] [address] Phone Care Team Providers Care Strategic Partner Development Manager Name Role Phone Landry Lauren DO Primary Care Provider [phone] Encounters Date Type Department Care Team Description 08/25/2024 2:12 PM EST - 08/25/2024 11:59 PM EST Hospital Encounter [facility] - [facility] [address] [place], [place] [phone] Bilateral hand pain Discharge Disposition: Home or Self Care from Last 3 Months Surgical History Surgery Date Site/Laterality Comments SINUS SURGERY PROCEDURE: OR UNLISTED PROCEDURE ACCESSORY SINUSES; COMMENT: Chu - frontal to maxillary shunts made COLONOSCOPY 05/14/12 PROCEDURE: HISTORICAL COLONOSCOPY; COMMENT: hemorrhoids; repeat in ten yrs ESOPHAGOGASTRODUODENOSCOPY 09/11- PROCEDURE: OR ESOPHAGOGASTRODUODENOSCOPY TRANSORAL DIAGNOSTIC; COMMENT: reactive gastropathy without H. pylofi Medical History Medical History Date Comments Migraine 05/04/2012 DX:Migraine Fatty liver disease, nonalcoholic 07/29/2013 DX:Fatty liver disease, nonalcoholic Obesity 05/04/2012 DX:Obesity ADHD (attention deficit hype ractivity disorder) 10/07/2013 DX:ADHD (attention deficit hyperactivity disorder); COMMENT: Ramos Epicondylitis, lateral (tennis elbow) 10/23/2014 DX:Epicondylitis, lateral (tennis elbow) Depression 06/07/2015 DX:Depression Type 2 diabetes mellitus wit hout complication, without long-term current use of insulin DX:Type 2 diabetes mellitus without complication, without long-term current use of insulin (HCC) Type 2 diabetes mellitus wit hout complication, without long-term current use of insulin 06/03/2018 DX:Type 2 diabetes mellitus without complication, without long-term current use of insulin (HCC) Family History Medical History Relation Name Comments Heart attack Father age 84 Other: Bleeding Ulcers Father Stroke Father Hypertension Mother Other: Hodgkins lymphoma Mother d age 57 Thyroid disease Other cousin Other cancer Sister Ovarian Blindness Neg Hx Cataracts Neg Hx Glaucoma Neg Hx Macular degeneration Neg Hx Strabismus Neg Hx Relation Name Status Comments Father Mother Other Sister Social History Tobacco Use Types Packs/Day Years Used Date Smoking Tobacco: Every Day Cigarettes Smokeless Tobacco: Never Alcohol Use Standard Drinks/Week Comments No 0 (1 standard drink = 0.6 oz pur e alcohol) Sex and Gender Information Value Date Recorded Sex Assigned at Not on file Legal Sex Male 9:04 AM EST Gender Identity Not on file Sexual Orientation Not on file Obstetrics History Plan of Treatment Health Maintenance Due Date Last Done Comments Diabetes: Annual Foot Exam 1971 Diabetes: Annual Retina Eye Exam 1971 Hepatitis A Vaccines (1 of 2 - Risk 2-dose series) 1980 Zoster Vaccines (1 of 2) 2011 Pneumococcal Vaccine: 50+ Years (2 of 2 - PCV) 07/21/2019 07/21/2018 Pneumococcal Vaccine: Pediatrics (0 to 5 Years) and At-Risk Patients (6 to 64 Years) (2 of 2 - PCV) 07/21/2019 07/21/2018 Hepatitis B Vaccines (1 of 3 - Risk 3-dose series) 2021 RSV Immunization Adult Patients (1 - Risk 60-74 years 1-dose series) 2021 DTaP,Tdap,and Td Vaccines (2 - Td or Tdap) 06/10/2022 06/10/2012 Colorectal Cancer Screening: Colonoscopy 07/19/2022 Depression Screening 07/19/2022 HIV Screening 07/19/2022 Hepatitis C Screening 07/19/2022 Social Influencers of Health Screening 07/19/2022 COVID-19 Vaccine ( - 2023-2 5 season) 2024 Influenza Vaccine (#1) 2024 8, 05/16/2015 Diabetes: Blood Sugar Contro l Test (HGBA1C) 01/25/2025 07/27/2024 Diabetes: Annual GFR (Glomerular Filtration Rate) 07/27/2025 07/27/2024 Hypertension/CHF/CAD Annual BMP Blood Test 07/27/2025 07/27/2024 Diabetes: Annual Urine Albumin-Creatinine Ratio (uACR) 08/24/2025 08/24/2024 Cholesterol Screening (Lipid Panel) 07/27/2029 07/27/2024 HIB Vaccines Aged Out No longer eligi ble based on patient's age to complete this topic HPV Vaccines Aged Out No longer eligi ble based on patient's age to complete this topic IPV Vaccines Aged Out No longer eligi ble based on patient's age to complete this topic MMR Vaccines Aged Out No longer eligi ble based on patient's age to complete this topic Meningococcal ACWY Vaccine Aged Out N o longer eligible based on patient's age to complete this topic Meningococcal B Vaccine Aged Out No l onger eligible based on patient's age to complete this topic RSV Immunization Patients Under 20 months Aged Out No longer eligible b ased on patient's age to complete this topic Varicella Vaccines Aged Out No longer eligible based on patient's age to complete this topic Procedures Procedure Name Priority Date/Time Associated Diagnosis Comments PROSTATE SPECIFIC ANTIGEN SCREEN Routine 10/05/2024 2:01 PM EST Enlarged prostate with urinary obstruction XR HAND 3+ VIEWS BILAT Routine 2:14 PM EST Bilateral hand pain CBC WITH AUTO DIFFERENTIAL Routine 08/24/2024 9:42 AM EST Impaired fasting glucose Screening for ischemic heart disease Screening for thyroid disorder Routine general medical examination at a health care facility DM (diabetes mellitus) (CMS/HCC) Stiffness due to immobility Hypertension Bilateral hand swelling C-REACTIVE PROTEIN Routine 08/24/2024 9: 42 AM EST Impaired fasting glucose Screening for ischemic heart disease Screening for thyroid disorder Routine general medical examination at a health care facility DM (diabetes mellitus) (CMS/HCC) Stiffness due to immobility Hypertension Bilateral hand swelling SEDIMENTATION RATE Routine 08/24/2024 9: 42 AM EST Impaired fasting glucose Screening for ischemic heart disease Screening for thyroid disorder Routine general medical examination at a health care facility DM (diabetes mellitus) (CMS/HCC) Stiffness due to immobility Hypertension Bilateral hand swelling CECILY IFA WITH TITER AND PATTERN Routine 08/24/2024 9:42 AM EST Impaired fasting glucose Screening for ischemic heart disease Screening for thyroid disorder Routine general medical examination at a health care facility DM (diabetes mellitus) (CMS/HCC) Stiffness due to immobility Hypertension Bilateral hand swelling MICROALBUMIN CREATININE URINE RATIO Routine 08/24/2024 9:42 AM EST Impaired fasting glucose Screening for ischemic heart disease Screening for thyroid disorder Routine general medical examination at a health care facility DM (diabetes mellitus) (CMS/HCC) Stiffness due to immobility Hypertension Bilateral hand swelling CBC AND DIFFERENTIAL Routine 08/24/2024 9:42 AM EST Impaired fasting glucose Screening for ischemic heart disease Screening for thyroid disorder Routine general medical examination at a health care facility DM (diabetes mellitus) (CMS/HCC) Stiffness due to immobility Hypertension Bilateral hand swelling THYROID STIMULATING HORMONE Routine 08/24/2024 9:42 AM EST Impaired fasting glucose Screening for ischemic heart disease Screening for thyroid disorder Routine general medical examination at a health care facility DM (diabetes mellitus) (CMS/HCC) Stiffness due to immobility Hypertension Bilateral hand swelling BASIC METABOLIC PANEL Routine 07/27/2024 11:00 AM EST Frequent urination DM2 (diabetes mellitus, type 2) (CMS/HCC) Depression ADHD Neuropathy Hyperlipemia HEMOGLOBIN A1C Routine 07/27/2024 11:00 AM EST Frequent urination DM2 (diabetes mellitus, type 2) (CMS/HCC) Depression ADHD Neuropathy Hyperlipemia LIPID PANEL WITH REFLEX TO DIRECT LDL Routine 07/27/2024 11:00 AM EST Frequent urination DM2 (diabetes mellitus, type 2) (CMS/HCC) Depression ADHD Neuropathy Hyperlipemia from Last 3 Months or Most Recently Relevant to Health Maintenance Results * Prostate specific antigen screen (10/05/2024 2:01 PM EST) [facility] PSA 1.86 0.00 - 4.00 ng/mL LAB CHEMISTRY METHOD 10/05/2024 5:10 PM EST [facility] Blood Venous blood specimen / Unknown Venipuncture / Unknown 10/05/2024 2:01 PM EST 10/05/2024 2:02 PM EST Narrative [facility]) [facility] - 10/05/2024 5:10 PM EST The Siemens Advia Centaur Chemiluminescent Immunoassay is used. Results obtained with different assay methods or kits cannot be used interchangeably. Results cannot be interpreted as absolute evidence of the presence or absence of malignant disease. us Donte Suarez MD LAB BLOOD ORDERABLES Fin al Result [facility]) [facility] [address] [place] [address], * XR Hand 3+ Views bilat (08/25/2024 2:14 PM EST) Anatomical Region Laterality Modality Upper Extremities, Hand Bilateral Radiogra phic Imaging 08/25/2024 10:1 9 PM EST Impressions 08/25/2024 10:27 PM EST Mild degenerative changes. ??Thin linear foreign body in the right proximal 5th digit. POS - [id number] -------- FINAL REPORT -------- Dictated By: Huyen Mendoza Dictated Date: 08/25/2024 22:19 ET Assigned Physician: Huyen Mendoza Reviewed and Electronically Signed By: Huyen Mendoza Signed Date: 08/25/2024 22:27 ET Workstation ID: [id number] Transcribed By: Self Edit Transcribed Date: 08/25/2024 22:19 ET Narrative 08/25/2024 10:27 PM EST EXAM: Bilateral hand x-ray HISTORY: Bilateral hand pain. COMPARISON: Left hand radiography 10/23/2014 FINDINGS: 3 views of both hands were performed. Mild degenerative changes at the bilateral IP joints with joint space narrowing and spurring. ??Spurring at the bilateral 2nd DIP joints and right 3rd DIP joint. ??No evidence of an acute fracture or malalignment. ??No destructive bone lesion. ??No definite erosions. ??5 mm thin radiodensity in the soft tissues at the medial aspect of the right 5th proximal phalanx concerning for a foreign body. Procedure Note Huyen Mendoza MD - 08/25/2024 EXAM: Bilateral hand x-ray HISTORY: Bilateral hand pain. COMPARISON: Left hand radiography 10/23/2014 FINDINGS: 3 views of both hands were performed. Mild degenerative changes at the bilateral IP joints with joint spacenarrowing and spurring. Spurring at the bilateral 2nd DIP joints andright 3rd DIP joint. No evidence of an acute fracture or malalignment.No destructive bone lesion. No definite erosions. 5 mm thin radiodensityin the soft tissues at the medial aspect of the right 5th proximal phalanxconcerning for a foreign body. IMPRESSION: Mild degenerative changes. Thin linear foreign body in the right [id number] digit. POS - [id number] -------- FINAL REPORT -------- Dictated By: Huyen Mendoza Dictated Date: 08/25/2024 22:19 ET Assigned Physician: Huyen Mendoza Reviewed and Electronically Signed By: Huyen Mendoza Signed Date: 08/25/2024 22:27 ET Workstation ID: [id number] Transcribed By: Self Edit Transcribed Date: 08/25/2024 22:19 ET Landry Lauren DO IMG XR PROCEDURES Final Resul t * CECILY IFA with titer and pattern (08/24/2024 9:42 AM EST) CECILY Negative Negative 08/25/2024 10:48 AM EST [facility] Blood Venous blood specimen / Unknown Venipuncture / Unknown 08/24/2024 9:42 AM EST 08/24/2024 9:43 AM EST us Daniels Simmons [employer] LAB BLOOD ORDERABLES Final Resul t [facility] [address] [place] [address], [place] [phone] * (ABNORMAL) CBC auto differential (08/24/2024 9:42 AM EST) [facility] Signature WBC 5.2 4.8 - 10.8 K/mcL LAB HEMETOLOGY METHOD 08/24/2024 11:23 AM [facility] RBC 4.70 4.50 - 5.50 M/mcL LAB HEMETOLOGY METHOD 08/24/2024 11:23 AM [facility] Hemoglobin 13.4(L) 13.5 - 17.5 g/dL LAB HEMETOLOGY METHOD 08/24/2024 11:23 AM [facility] Hematocrit 40.3(L) 42.0 - 54.0 % LAB HEMETOLOGY METHOD 08/24/2024 11:23 AM [facility] MCV 86.5 79.0 - 98.0 FL LAB HEMETOLOGY METHOD 08/24/2024 11:23 AM [facility] MCH 28.8 27.0 - 32.0 pcg LAB HEMETOLOGY METHOD 08/24/2024 11:23 AM [facility] MCHC 33.3 32.0 - 37.0 g/dL LAB HEMETOLOGY METHOD 08/24/2024 11:23 AM [facility] RDW 12.9 11.0 - 15.0 % LAB HEMETOLOGY METHOD 08/24/2024 11:23 AM [facility] Platelets 150 130 - 400 K/mcL LAB HEMETOLOGY METHOD 08/24/2024 11:23 AM [facility] MPV 9.3 7.0 - 11.0 FL LAB HEMETOLOGY METHOD 08/24/2024 11:23 AM [facility] NRBC 0.0 <1.0 % LAB HEMETOLOGY METHOD 08/24/2024 11:23 AM [facility] NRBC Absolute 0.00 <0.10 K/mcL LAB HEMETOLOGY METHOD 08/24/2024 11:23 AM [facility] Neutrophils Relative 49.5 % LAB HEMETOLOGY METHOD 08/24/2024 11:23 AM [facility] Lymphocytes Relative 24.8 % LAB HEMETOLOGY METHOD 08/24/2024 11:23 AM [facility] Monocytes Relative 10.5 % LAB HEMETOLOGY METHOD 08/24/2024 11:23 AM [facility] Eosinophils Relative 13.6 % LAB HEMETOLOGY METHOD 08/24/2024 11:23 AM [facility] Basophils Relative 1.4 % LAB HEMETOLOGY METHOD 08/24/2024 11:23 AM [facility] Immature Granulocytes Relative 0.2 % LAB HEMETOLOGY METHOD 08/24/2024 11:23 AM [facility] Neutrophils Absolute 2.56 1.50 - 7.00 K/mcL LAB HEMETOLOGY METHOD 08/24/2024 11:23 AM [facility] Lymphocytes Absolute 1.28 1.00 - 5.00 K/mcL LAB HEMETOLOGY METHOD 08/24/2024 11:23 AM [facility] Monocytes Absolute 0.54 0.20 - 1.00 K/mcL LAB HEMETOLOGY METHOD 08/24/2024 11:23 AM [facility] Eosinophils Absolute 0.70(H) 0.00 - 0.50 K/mcL LAB HEMETOLOGY METHOD 08/24/2024 11:23 AM [facility] Basophils Absolute 0.07 0.00 - 0.20 K/mcL LAB HEMETOLOGY METHOD 08/24/2024 11:23 AM [facility] Immature Granulocytes Absolute 0.01 0.00 - 0.03 K/mcL LAB HEMETOLOGY METHOD 08/24/2024 11:23 AM [facility] Blood Venous blood specimen / Unknown Venipuncture / Unknown 08/24/2024 9:42 AM EST 08/24/2024 9:43 AM EST us Frances Simmons [employer] LAB BLOOD ORDERABLES Final Resul t Performing Organization Address City/[facility]/ZIP Co de Phone Number [facility] [address] [place] [address], [place] [phone] * Microalbumin creatinine urine ratio (08/24/2024 9:42 AM EST) Creatinine, Urine 154.0 mg/dL LAB CHEMISTRY METHOD 08/24/2024 11:40 AM EST [facility] Microalb, Ur 17.6 0.0 - 29.0 mg/L LAB CHEMISTRY METHOD 08/24/2024 11:40 AM EST [facility] Microalb/Creat Ratio 11 <30 mg/g creat LAB CHEMISTRY METHOD 08/24/2024 11:40 AM EST [facility] Urine Urine specimen obtained by clean catch procedure / Unknown Non-blood Collection / Unknown 08/24/2024 9:42 AM EST 08/24/2024 9:43 AM EST us Frances Simmons LAB URINE ORDERABLES Final Resul t Performing Organization Address [facility] de Phone Number [facility] [address] [place] [address], [place] [phone] * Sedimentation rate (08/24/2024 9:42 AM EST) Sed Rate 16 0 - 20 mm/hr LAB HEMETOLOGY METHOD 08/24/2024 11:34 AM EST [facility] Blood Venous blood specimen / Unknown Venipuncture / Unknown 08/24/2024 9:42 AM EST 08/24/2024 9:43 AM EST us Frances Simmons [employer] LAB BLOOD ORDERABLES Final Resul t [facility] [address] [place] [address], [place] [phone] * C-reactive protein (08/24/2024 9:42 AM EST) [facility] C-Reactive Protein <0.29 <=0.50 mg/dL LAB CHEMISTRY METHOD 08/24/2024 11:25 AM EST [facility] Blood Venous blood specimen / Unknown Venipuncture / Unknown 08/24/2024 9:42 AM EST 08/24/2024 9:43 AM EST us Frances Simmons LAB BLOOD ORDERABLES Final Resul t [facility] [address] [place] [address], [place] [phone] * Thyroid stimulating hormone (08/24/2024 9:42 AM EST) [facility] TSH 1.97 0.40 - 4.00 mcIU/mL LAB CHEMISTRY METHOD 08/24/2024 11:35 AM EST [facility] Blood Venous blood specimen / Unknown Venipuncture / Unknown 08/24/2024 9:42 AM EST 08/24/2024 9:43 AM EST us Frances Simmons [employer] LAB BLOOD ORDERABLES Final Resul t [facility] [address] [place] [address], [place] [phone] * (ABNORMAL) Lipid panel with reflex to direct LDL (07/27/2024 11:00 AM EST) [facility] Cholesterol 150 0 - 200 mg/dL LAB CHEMISTRY METHOD 07/27/2024 3:33 PM EST [facility] Triglycerides 381(H) 0 - 150 mg/dL LAB CHEMISTRY METHOD 07/27/2024 3:33 PM EST [facility] HDL 41 >=40 mg/dL LAB CHEMISTRY METHOD 07/27/2024 3:33 PM EST [facility] LDL Calculated 33 0 - 100 mg/dL LAB CHEMISTRY METHOD 07/27/2024 3:33 PM EST [facility] VLDL Cholesterol Gregorio 76.2 mg/dL LAB CHEMISTRY METHOD 07/27/2024 3:33 PM [facility] Non HDL Chol. (LDL+VLDL) 109 <145 mg/dL LAB CHEMISTRY METHOD 07/27/2024 3:33 PM EST [facility] Chol/HDL Ratio 3.7 0.0 - 4.4 LAB CHEMISTRY METHOD 07/27/2024 3:33 PM [facility] Blood Venous blood specimen / Unknown Venipuncture / Unknown 07/27/2024 11:00 AM EST 07/27/2024 11:00 AM EST us Daniels Simmons [employer] LAB BLOOD ORDERABLES Final Resul t Performing Organization Address City/[facility]/ZIP Co de Phone Number [facility] [address] [place] [address], [place] [phone] * (ABNORMAL) Hemoglobin A1c (07/27/2024 11:00 AM EST) Hemoglobin A1C 13.0(H) <6.5 % LAB CHEMISTRY METHOD 07/27/2024 8:30 PM EST [facility] Mean Bld Glu Estim. 326 mg/dL LAB CHEMISTRY METHOD 07/27/2024 8:30 PM EST [facility] Blood Venous blood specimen / Unknown Venipuncture / Unknown 07/27/2024 11:00 AM EST 07/27/2024 11:00 AM EST us Daniels Simmons [employer] LAB BLOOD ORDERABLES Final Resul t [facility] [address] [place] [address], [place] [phone] * (ABNORMAL) Basic metabolic panel (07/27/2024 11:00 AM EST) Sodium 129(L) 133 - 145 mmol/L LAB CHEMISTRY METHOD 07/27/2024 3:54 PM [facility] Potassium 5.1 3.5 - 5.5 mmol/L LAB CHEMISTRY METHOD 07/27/2024 3:54 PM [facility] Chloride 93(L) 96 - 110 mmol/L LAB CHEMISTRY METHOD 07/27/2024 3:54 PM [facility] CO2 30 21 - 32 mmol/L LAB CHEMISTRY METHOD 07/27/2024 3:54 PM [facility] Anion Gap 6 3 - 11 LAB CHEMISTRY METHOD 07/27/2024 3:54 PM [facility] Glucose 690(HH) 70 - 100 mg/dL LAB CHEMISTRY METHOD 07/27/2024 3:54 PM [facility] BUN 27(H) 5 - 25 mg/dL LAB CHEMISTRY METHOD 07/27/2024 3:54 PM [facility] Creatinine 1.33(H) 0.70 - 1.30 mg/dL LAB CHEMISTRY METHOD 07/27/2024 3:54 PM [facility] eGFR 60 >=60 mL/min/1. 73m2 LAB CHEMISTRY METHOD 07/27/2024 3:54 PM [facility] Comment:Calculation based on the??Chronic Kidney Disease Epidemiology Collaboration (CKD-EPI) equation refit??without adjustment for race. BUN/Creatinine Ratio 20.3 LAB CHEMISTRY METHOD 07/27/2024 3:54 PM [facility] Calcium 9.6 8.5 - 10.5 mg/dL LAB CHEMISTRY METHOD 07/27/2024 3:54 PM [facility] Blood Venous blood specimen / Unknown Venipuncture / Unknown 07/27/2024 11:00 AM EST 07/27/2024 11:00 AM EST us Daniels Simmons [employer] LAB BLOOD ORDERABLES Final Resul t [facility] [place] ([facility]) [facility] [address] [place] [address], from Last 3 Months or Most Recently Relevant to Health Maintenance Insurance [facility] Care Teams Strategic Partner Development Manager Relationship Specialty Start Date End Date Landry Lauren DO [address] [place] [phone] PCP - General Internal Medicine 03/12/22
== END 2024-11-15 09:38 | disposition home or self-care (01) ==
LOC: HO.NEURO 09:37
PROVIDERS: PCP Internal Medicine
DX: G56.13 Other lesions of median nerve, bilateral upper limbs (principal); G56.23 Lesion of ulnar nerve, bilateral upper limbs; M54.12 Radiculopathy, cervical region
CPT/HCPCS: 95860; 95886; 95911

== ENCOUNTER 2024-11-21 09:32 | Outpatient (AMB) | payer BC, SELFPAY ==
--- NOTE | 2024-11-21 09:36 | A.OFFVIS_ITS ---
Vital Signs 11/21/24 09:38 Height 5 ft 7 in Weight 200 lb BMI 31.3 Respiration 16 Pulse 87 Pulse Source Pulse Oximeter Pulse Oximetry (%) 97 Oxygen Delivery Method Room Air Intake Visit Reasons: Botox Injection Intake Note: Pt's BP grossly elevated, he states he is upset Insurance And Financial Services Agent: Insurance And Financial Services Agent Present Accompanied by: Jaylen Miranda Allergies Penicillins Allergy (Severe, Verified 11/21/24 09:39) Anaphylaxis Medication List - Last Reconciled 11/21/24 by Marilee Medina LPN atorvastatin 40 mg PO DAILY cetirizine (24Hour Allergy) 10 mg PO DAILY PRN cholecalciferol (vitamin D3) 25 mcg PO DAILY dextroamphetamine-amphetamine 10 mg 10 mg PO DAILY dulaglutide (Trulicity) 3 mg subcut QWEEK fluoxetine 10 mg PO BID insulin glargine (Lantus Solostar U-100 Insulin) units subcut metformin 1,000 mg PO BID [id number] mcg (Centrum Silver Men) 1 tab PO DAILY onabotulinumtoxinA (Botox) 155 units intradermal ONCE sumatriptan succinate 25 mg PO Q2-4H PRN tamsulosin 0.4 mg PO BEDTIME vitamin A-vitamin C-vit E-min 1 tab PO DAILY HPI HPI Botox Injection: Details: History of Present Illness The patient is a 64-year-old female presenting with chronic pain and migraine management concerns. She experiences recurrent headaches, diagnosed as migraines, primarily impacting the sides of the head and back of the neck. Sumatriptan is used for relief; however, there are ongoing concerns about its cardiac side effects. [facility] were initially denied by insurance but later approved. The patient also suffers from chronic sinusitis with polyps, generating facial pain and pressure possibly affecting migraine frequency. The combination of these factors is significantly affecting her life quality. Furthermore, the patient experiences tremors aggravated by caffeine intake, mainly affecting the left side, which continues even when caffeine intake is restricted. Pain Description - Chronic pain associated with migraine headaches. - Pain is primarily located on the sides of the head and back of the neck. - Pain described as migraine-type and chronic. - Sumatriptan provides relief, though concerns about cardiac effects exist. - Aggravated by unresolved sinus issues due to polyps impacting facial pressure. - Tremors are also present, more pronounced on the left side, exacerbated by caffeine. Physical Exam - Nervous System- Tremor noted, more prominent on the left side. Results Pain Management - Affect: Chronic pain impacting quality of life and causing significant frustration. - Analgesia: Using sumatriptan; expressing concern over cardiac side effects from usage. - Adverse Effects: Cardiac side effects from sumatriptan are a concern. - Activities of Daily Living: Significant impact on life quality and daily activities. - Aberrant Drug Related Behaviors: None reported. [facility] Medical History (Updated 11/21/24 @ 10:00 by Wayne Alcala MD) Tinnitus, left ear NAFLD (nonalcoholic fatty liver disease) HTN (hypertension) ADHD Depression Allergic rhinitis Migraines DM type 2 (diabetes mellitus, type 2) Physical Exam Vital Signs: Last Vital Signs Pulse 87 11/21/24 09:38 Resp 16 11/21/24 09:38 Pulse Ox 97 11/21/24 09:38 Oxygen Delivery Method Room Air 11/21/24 09:38 BMI result Body Mass Index 31.3 Office Procedures Botulinum toxin Injection Details: Chemodenervation of Scalp and Neck for Chronic Migraine (155 units as per protocol approved by FDA) After obtaining written consent, pre-procedure blood pressure and heart rate were stable and recorded in the nursing record. The patient was placed in the sitting position. Bilaterally, 31 points along coil tester (2 sites), procerus (1 site), frontalis (4 sites), temporalis (8 sites), occipitalis (6 sites), cervical paraspinals (4 sites), and trapezius (6 sites) were identified and prepped with alcohol. Using sterile technique, a 30 gauge 0.5 inch needle (for all sites other than trapezius) and 25 gauge 1.5 inch (for trapezius only) needle was introduced into each muscle and 5 units per site was injected. A total of 155 units were used. Aspirations were negative for blood, CSF and air prior to injection at all sites. The needle was removed, skin cleansed and a sterile bandage was applied where needed. The patient tolerated the procedure w ell and no complications were encountered. Following the procedure the patient's vital signs were stable. The patient was discharged home in good condition with post-procedural instructions. Time Out: Immediately prior to the procedure, the following was verbally confirmed that there is a signed consent form and that the correct patient, planned procedure, site and side are consistent with documentation and that necessary equipment and/or blood products are available prior to the start of the case. Complications: none EBL: <5 cc 76091 - Migraine Procedure code (CPT) selection complete Office Meds onabotulinumtoxinA 200 unit solution for injection Performing Provider: Wayne Alcala MD Performing Location: [facility] Administered by: Wayne Alcala MD on 11/21/24 11:23 Dose Route Admin Location Dispensed Lot Number Expiration Date [facility] [employer] [facility] Teacher 200 unit IM 155 ea [id number] 04/10/27 Assessment & Plan Assessment & Plan (1) Migraines: Code(s): G43.909 - Migraine, unspecified, not intractable, without status migrainosus Category: Medical Qualifiers: Intractability: intractable Migraine type: chronic without aura Status migrainosus presence: with status migrainosus Qualified Code(s): G43.711 - Chronic migraine without aura, intractable, with status migrainosus (2) Occasional tremors: Code(s): R25.1 - Tremor, unspecified Category: Medical Plan Plan The primary focus was placed on optimizing migraine and chronic pain management strategies. An Aimovig trial was recommended to potentially avoid the side effects associated with sumatriptan. Efficacy of Dupixent for chronic sinusitis with polyps was noted, as decreasing sinus inflammation could reduce migraine triggers. Tremor evaluation through potential neurology referrals was suggested. Follow-ups were advised to ensure the effectiveness of the new treatment regimen. Patient was informed and verbally consented to the use of an ambient scribe for clinic note documentation during this visit. Discussion Notes I discussed with the patient the diagnosis of chronic migraines and chronic sinusitis with polyps and the associated chronic pain challenges. For migraines, the introduction of aimovig as a treatment option was proposed to reduce dependency on sumatriptan. We reviewed the adverse cardiac effects of sumatriptan, emphasizing the importance of minimizing its use. Dupixent was discussed as a treatment option for sinusitis to manage polyps and associated sinus pressure, which may mitigate migraine symptoms. I explained the potential need for neurological evaluation to address tremors. Follow-up was planned to evaluate treatment efficacy and ensure ongoing management of chronic conditions. Patient Instructions - Start a trial of Amovate for migraines as prescribed. - Use Dupixent for sinus involvement if approved and advised by your ENT. - Monitor and reduce sumatriptan use due to cardiac concerns. - Schedule a neurology appointment for tremor evaluation if interested. - Follow up as directed to assess treatment response and adjust management as necessary. - Maintain awareness of pain levels and report any changes. Orders: Orders AMB Botulinum toxin Injection Today G43.909 - Migraine, unspecified, not intractable, without status migrainosus Referrals Neurology Referral G43.711 - Chronic migraine without aura, intractable, with status migrainosus, R25.1 - Tremor, unspecified Medications: New onabotulinumtoxinA 200 units IM ONCE 1 ea 0RF G43.909 - Migraine, unspecified, not intractable, without status migrainosus Coding Level of Care Code Est Pt Level 4 (90459) Diagnoses Intractable chronic migraine without aura and with status migrainosus G43.711 Intractability: intractable Migraine type: chronic without aura Status migrainosus presence: with status migrainosus Occasional tremors R25.1 CPT Codes Botox Injection - Botox 3: 89850 - Migraine ([id number])
[2024-11-21 09:38] VITALS: PULSE 87; RESP 16; O2SAT 97; BMI 31.3
--- OUTSIDE RECORDS SUMMARY | 2024-11-21 10:34 | XMS_ITS | Encounter Summary ---
Author Organization [facility] Address [address] [place] [address] Care Team Providers Care Tire Building Supervisor Name Role Phone Landry Lauren DO Primary Care Provider [phone] Encounter Details Date Type Department Care Team (Late st Contact Info) Description 07/28/2024 Lab Requisition [facility] - Main Lab [address] [facility] [place] [id number] Landry Lauren DO [address] [place] [phone] Frequency of micturition Social History Tobacco Use [...] atypical urothelial cells. 07/29/2024 6:06 PM EST [facility] Specimen A Adequacy Satisfactory for evaluation 07/29/2024 6:06 PM [facility] Gross Description A. Urine, Voided, : Received 50 ml of yellow fluid; 1 ThinPrep, 07/29/2024 6:06 PM [facility] Disclaimer Unless otherwise specified, all tissue is 10% NB formalin fixed and paraffin embedded. Technical cytopathology services provided by [facility], at [address] [place] [address] (CLIA # [id number]/Romaine Rodriguez MD, Highway Maintainer.) 07/29/2024 6:06 PM [facility] Urine Urine specimen from urethra / Unknown 07/21/2024 07/28/2024 10:54 AM EST Landry Lauren DO LAB CYTOLOGY ORDERABLES Final Result [facility] [address] [place] [address], documented in this encounter Visit Diagnoses Diagnosis Frequency of micturition Urinary frequency documented in this encounter Care Teams Tire Building Supervisor Relationship Specialty Start Date End Date Landry Lauren DO [address] [place] [phone] PCP - General Internal Medicine 03/12/22 documented as of this encounter
--- OUTSIDE RECORDS SUMMARY | 2024-11-21 10:35 | XMS_ITS | Clinical Summary ---
Author Organization [address] [facility] Address [address] [facility] [place] [address] Phone Care Team Providers Care Dye Lab Technician Name Role Phone Landry Lauren DO Primary Care Provider [phone] Encounters Date Type Department Care Team Description 08/25/2024 2:12 PM EST - 08/25/2024 11:59 PM EST Hospital Encounter X[facility] - [facility] [address] [place], [place] [phone] Bilateral hand pain Discharge Disposition: Home or Self Care from Last 3 Months Surgical History Surgery Date Site/Laterality Comments SINUS SURGERY PROCEDURE: LA UNLISTED PROCEDURE ACCESSORY SINUSES; COMMENT: Chu - frontal to maxillary shunts made COLONOSCOPY 05/14/12 PROCEDURE: HISTORICAL COLONOSCOPY; COMMENT: hemorrhoids; repeat in ten yrs ESOPHAGOGASTRODUODENOSCOPY 09/11- PROCEDURE: LA ESOPHAGOGASTRODUODENOSCOPY TRANSORAL DIAGNOSTIC; COMMENT: reactive gastropathy without [...] complication, without long-term current use of insulin (CMS/HCC V24, CMS/HCC V28) DX:Type 2 diabetes mellitus without complication, without long-term current use of insulin (HCC) Type 2 diabetes mellitus wit hout complication, without long-term current use of insulin ([facility] V24, [facility] V28) 06/03/2018 DX:Type 2 diabetes mellitus without complication, [...] Vaccine ( - 2023-2 5 season) 2024 Diabetes: Blood Sugar Contro l Test (HGBA1C) 01/25/2025 07/27/2024 Influenza Vaccine (Season Ended) 2025 07/21/2018, 05/16/2015 Diabetes: Annual GFR (Glomerular Filtration Rate) 07/27/2025 [...] a health care facility DM (diabetes mellitus) ([facility] V24, CMS/[facility] V28) Stiffness due to immobility Hypertension Bilateral hand swelling C-REACTIVE PROTEIN Routine 08/24/2024 9: 42 AM EST Impaired fasting glucose Screening for ischemic heart disease Screening for thyroid disorder Routine general medical examination at a health care facility DM (diabetes mellitus) (CMS/HCC V24, CMS/[facility] V28) Stiffness due to immobility Hypertension Bilateral hand swelling SEDIMENTATION RATE Routine 08/24/2024 9: 42 AM EST Impaired fasting glucose Screening for ischemic heart disease Screening for thyroid disorder Routine general medical examination at a health care facility DM (diabetes mellitus) ([facility] V24, CMS/[facility] V28) Stiffness due to immobility Hypertension Bilateral hand swelling CECILY IFA WITH TITER AND PATTERN Routine 08/24/2024 9:42 AM EST Impaired fasting glucose Screening for ischemic heart disease Screening for thyroid disorder Routine general medical examination at a health care facility DM (diabetes mellitus) (CMS/[facility] V24, [facility] V28) Stiffness due to immobility Hypertension Bilateral hand swelling MICROALBUMIN CREATININE URINE RATIO Routine 08/24/2024 9:42 AM EST Impaired fasting glucose Screening for ischemic heart disease Screening for thyroid disorder Routine general medical examination at a health care facility DM (diabetes mellitus) (CMS/[facility] V24, CMS/[facility] V28) Stiffness due to immobility Hypertension Bilateral hand swelling CBC AND DIFFERENTIAL Routine 08/24/2024 9:42 AM EST Impaired fasting glucose Screening for ischemic heart disease Screening for thyroid disorder Routine general medical examination at a health care facility DM (diabetes mellitus) (CMS/[facility] V24, CMS/[facility] V28) Stiffness due to immobility Hypertension Bilateral hand swelling THYROID STIMULATING HORMONE Routine 08/24/2024 9:42 AM EST Impaired fasting glucose Screening for ischemic heart disease Screening for thyroid disorder Routine general medical examination at a health care facility DM (diabetes mellitus) ([facility] V24, [facility] V28) Stiffness due to immobility Hypertension Bilateral hand swelling BASIC METABOLIC PANEL Routine 07/27/2024 11:00 AM EST Frequent urination DM2 (diabetes mellitus, type 2) ([facility] V24, CMS/[facility] V28) Depression ADHD Neuropathy Hyperlipemia HEMOGLOBIN A1C Routine 07/27/2024 11:00 AM EST Frequent urination DM2 (diabetes mellitus, type 2) ([facility] V24, [facility] V28) Depression ADHD Neuropathy Hyperlipemia LIPID PANEL WITH REFLEX TO DIRECT LDL Routine 07/27/2024 11:00 AM EST Frequent urination DM2 (diabetes mellitus, type 2) ([facility] V24, [facility] V28) Depression ADHD Neuropathy Hyperlipemia from Last 3 Months or Most Recently Relevant to Health Maintenance Results * Prostate specific antigen screen (10/05/2024 2:01 PM EST) PSA 1.86 0.00 - 4.00 ng/mL LAB CHEMISTRY METHOD 10/05/2024 5:10 PM EST [facility] Blood Venous blood specimen / Unknown Venipuncture / Unknown 10/05/2024 2:01 PM EST 10/05/2024 2:02 PM EST Narrative [facility] - 10/05/2024 5:10 PM EST The Siemens Advia Sprout Routeaur Chemiluminescent Immunoassay is used. Results obtained with different assay methods or kits cannot be used interchangeably. Results cannot be interpreted as absolute evidence of the presence or absence of malignant disease. us Donte Suarez MD LAB BLOOD ORDERABLES Fin al Result [facility] [address] [place] [address], * XR Hand 3+ Views bilat (08/25/2024 2:14 PM EST) Anatomical Region Laterality Modality Upper Extremities, Hand Bilateral Radiogra phic Imaging 08/25/2024 10:1 9 PM EST Impressions 08/25/2024 10:27 PM EST Mild degenerative changes. ??Thin linear foreign body in the right proximal 5th digit. POS - [id number] -------- FINAL REPORT -------- Dictated By: Huyen Mendoza Dictated Date: 08/25/2024 22:19 ET Assigned Physician: Huyen Mendoza Reviewed and Electronically Signed By: Huyen Mendoza Signed Date: 08/25/2024 22:27 ET Workstation ID: [id number] Transcribed By: Self Edit Transcribed Date: 08/25/2024 [...] Thin linear foreign body in the right [id number] digit. POS - [id number] -------- FINAL REPORT -------- Dictated By: Huyen Mendoza Dictated Date: 08/25/2024 22:19 ET Assigned Physician: Huyen Mendoza Reviewed and Electronically Signed By: Huyen Mendoza Signed Date: 08/25/2024 22:27 ET Workstation ID: [id number] Transcribed By: Self Edit Transcribed Date: 08/25/2024 22:19 ET us Landry Lauren DO IMG XR PROCEDURES Final Resul t * CECILY IFA with titer and pattern (08/24/2024 9:42 AM EST) CECILY Negative Negative 08/25/2024 10:48 AM EST [facility] Blood Venous blood specimen / Unknown Venipuncture / Unknown 08/24/2024 9:42 AM EST 08/24/2024 9:43 AM EST us Daniels Simmons CNC MAINTENANCE TECHNICIAN LAB BLOOD ORDERABLES Final Resul t [facility] [address] [place] [address], * (ABNORMAL) CBC auto differential (08/24/2024 9:42 AM EST) WBC 5.2 4.8 - 10.8 K/mcL LAB HEMETOLOGY METHOD 08/24/2024 11:23 AM [facility] RBC 4.70 4.50 - 5.50 M/mcL LAB HEMETOLOGY METHOD 08/24/2024 11:23 AM [facility] Hemoglobin 13.4(L) 13.5 - 17.5 g/dL LAB HEMETOLOGY METHOD 08/24/2024 11:23 AM [facility] Hematocrit 40.3(L) 42.0 - 54.0 % LAB HEMETOLOGY METHOD 08/24/2024 11:23 AM [facility] MCV 86.5 79.0 - 98.0 FL LAB HEMETOLOGY METHOD 08/24/2024 11:23 AM [facility] MCH 28.8 27.0 - 32.0 pcg LAB HEMETOLOGY METHOD 08/24/2024 11:23 AM [facility] MCHC 33.3 32.0 - 37.0 g/dL LAB HEMETOLOGY METHOD 08/24/2024 11:23 AM [facility] RDW 12.9 11.0 - 15.0 % LAB HEMETOLOGY METHOD 08/24/2024 11:23 AM [facility] Platelets 150 130 - 400 K/mcL LAB HEMETOLOGY METHOD 08/24/2024 11:23 AM [facility] MPV 9.3 7.0 - 11.0 FL LAB HEMETOLOGY METHOD 08/24/2024 11:23 AM [facility] NRBC 0.0 <1.0 % LAB HEMETOLOGY METHOD 08/24/2024 11:23 AM [facility] NRBC Absolute 0.00 <0.10 K/mcL LAB HEMETOLOGY METHOD 08/24/2024 11:23 AM [facility] Neutrophils Relative 49.5 % LAB HEMETOLOGY METHOD 08/24/2024 11:23 AM [facility] Lymphocytes Relative 24.8 % LAB HEMETOLOGY METHOD 08/24/2024 11:23 AM [facility] Monocytes Relative 10.5 % LAB HEMETOLOGY METHOD 08/24/2024 11:23 AM [facility] Eosinophils Relative 13.6 % LAB HEMETOLOGY METHOD 08/24/2024 11:23 AM [facility] Basophils Relative 1.4 % LAB HEMETOLOGY METHOD 08/24/2024 11:23 AM [facility] Immature Granulocytes Relative 0.2 % LAB HEMETOLOGY METHOD 08/24/2024 11:23 AM [facility] Neutrophils Absolute 2.56 1.50 - 7.00 K/mcL LAB HEMETOLOGY METHOD 08/24/2024 11:23 AM [facility] Lymphocytes Absolute 1.28 1.00 - 5.00 K/mcL LAB HEMETOLOGY METHOD 08/24/2024 11:23 AM [facility] Monocytes Absolute 0.54 0.20 - 1.00 K/mcL LAB HEMETOLOGY METHOD 08/24/2024 11:23 AM [facility] Eosinophils Absolute 0.70(H) 0.00 - 0.50 K/mcL LAB HEMETOLOGY METHOD 08/24/2024 11:23 AM [facility] Basophils Absolute 0.07 0.00 - 0.20 K/[facility] LAB HEMETOLOGY METHOD 08/24/2024 11:23 AM EST [facility] Immature Granulocytes Absolute 0.01 0.00 - 0.03 K/[facility] LAB HEMETOLOGY METHOD 08/24/2024 11:23 AM EST [facility] Blood Venous blood specimen / Unknown Venipuncture / Unknown 08/24/2024 9:42 AM EST 08/24/2024 9:43 AM EST us Daniels Simmons CNC MAINTENANCE TECHNICIAN LAB BLOOD ORDERABLES Final Resul t Performing Organization Address City/[facility]/ZIP Co de Phone Number [facility] [address] [place] [address], [place] [phone] * Microalbumin creatinine urine ratio (08/24/2024 9:42 AM EST) Creatinine, Urine 154.0 mg/dL LAB CHEMISTRY METHOD 08/24/2024 11:40 AM [facility] Microalb, Ur 17.6 0.0 - 29.0 mg/L LAB CHEMISTRY METHOD 08/24/2024 11:40 AM EST [facility] Microalb/Creat Ratio 11 <30 mg/g creat LAB CHEMISTRY METHOD 08/24/2024 11:40 AM EST [facility] Urine Urine specimen obtained by clean catch procedure / Unknown Non-blood Collection / Unknown 08/24/2024 9:42 AM EST 08/24/2024 9:43 AM EST us Daniels Simmons CNC MAINTENANCE TECHNICIAN LAB URINE ORDERABLES Final Resul t Performing Organization Address City/[facility]/ZIP Co de Phone Number [facility] [address] [place] [address], [place] [phone] * Sedimentation rate (08/24/2024 9:42 AM EST) Sed Rate 16 0 - 20 mm/hr LAB HEMETOLOGY METHOD 08/24/2024 11:34 AM EST [facility] Blood Venous blood specimen / Unknown Venipuncture / Unknown 08/24/2024 9:42 AM EST 08/24/2024 9:43 AM EST us Daniels Simmons CNC MAINTENANCE TECHNICIAN LAB BLOOD ORDERABLES Final Resul t Performing Organization Address City/[facility]/ZIP Co de Phone Number [facility] [address] [place] [address], [place] [phone] * C-reactive protein (08/24/2024 9:42 AM EST) Pathologist [facility] C-Reactive Protein <0.29 <=0.50 mg/dL LAB CHEMISTRY METHOD 08/24/2024 11:25 AM EST [facility] Blood Venous blood specimen / Unknown Venipuncture / Unknown 08/24/2024 9:42 AM EST 08/24/2024 9:43 AM EST Daniels [facility] LAB BLOOD ORDERABLES Final Resul t Performing Organization Address [facility]/ZIP Co de Phone Number [facility] [address] [place] [address], [place] [phone] * Thyroid stimulating hormone (08/24/2024 9:42 AM EST) Pathologist [facility] TSH 1.97 0.40 - 4.00 mcIU/mL LAB CHEMISTRY METHOD 08/24/2024 11:35 AM EST [facility] Blood Venous blood specimen / Unknown Venipuncture / Unknown 08/24/2024 9:42 AM EST 08/24/2024 9:43 AM EST us Daniels Simmons CNC MAINTENANCE TECHNICIAN LAB BLOOD ORDERABLES Final Resul t Performing Organization Address City/[facility]/ZIP Co de Phone Number [facility] [address] [place] [address], [place] [phone] * (ABNORMAL) Lipid panel with reflex to direct LDL (07/27/2024 11:00 AM EST) Cholesterol 150 0 - 200 mg/dL LAB CHEMISTRY METHOD 07/27/2024 3:33 PM [facility] Triglycerides 381(H) 0 - 150 mg/dL LAB CHEMISTRY METHOD 07/27/2024 3:33 PM EST [facility] HDL 41 >=40 mg/dL LAB CHEMISTRY METHOD 07/27/2024 3:33 PM EST [facility] LDL Calculated 33 0 - 100 mg/dL LAB CHEMISTRY METHOD 07/27/2024 3:33 PM [facility] VLDL Cholesterol Gregorio 76.2 mg/dL LAB CHEMISTRY METHOD 07/27/2024 3:33 PM [facility] Non HDL Chol. (LDL+VLDL) 109 <145 mg/dL LAB CHEMISTRY METHOD 07/27/2024 3:33 PM [facility] Chol/HDL Ratio 3.7 0.0 - 4.4 LAB CHEMISTRY METHOD 07/27/2024 3:33 PM [facility] Blood Venous blood specimen / Unknown Venipuncture / Unknown 07/27/2024 11:00 AM EST 07/27/2024 11:00 AM EST us Daniels Simmons CNC MAINTENANCE TECHNICIAN LAB BLOOD ORDERABLES Final Resul t [facility] [address] [place] [address], * (ABNORMAL) Hemoglobin A1c (07/27/2024 11:00 AM EST) Hemoglobin A1C 13.0(H) <6.5 % LAB CHEMISTRY METHOD 07/27/2024 8:30 PM [facility] Mean Bld Glu Estim. 326 mg/dL LAB CHEMISTRY METHOD 07/27/2024 8:30 PM [facility] Blood Venous blood specimen / Unknown Venipuncture / Unknown 07/27/2024 11:00 AM EST 07/27/2024 11:00 AM EST us Daniels Simmons CNC MAINTENANCE TECHNICIAN LAB BLOOD ORDERABLES Final Resul t [facility] [address] [place] [address], * (ABNORMAL) Basic metabolic panel (07/27/2024 11:00 AM EST) Sodium 129(L) 133 - 145 mmol/L LAB CHEMISTRY METHOD 07/27/2024 3:54 PM [facility] Potassium 5.1 3.5 - 5.5 mmol/L LAB CHEMISTRY METHOD 07/27/2024 3:54 PM [facility] Chloride 93(L) 96 - 110 mmol/L LAB CHEMISTRY METHOD 07/27/2024 3:54 PM [facility] CO2 30 21 - 32 mmol/L LAB CHEMISTRY METHOD 07/27/2024 3:54 PM [facility] Anion Gap 6 3 - 11 LAB CHEMISTRY METHOD 07/27/2024 3:54 PM [facility] Glucose 690(HH) 70 - 100 mg/dL LAB CHEMISTRY METHOD 07/27/2024 3:54 PM [facility] BUN 27(H) 5 - 25 mg/dL LAB CHEMISTRY METHOD 07/27/2024 3:54 PM [facility] Creatinine 1.33(H) 0.70 - 1.30 mg/dL LAB CHEMISTRY METHOD 07/27/2024 3:54 PM [facility] eGFR 60 >=60 mL/min/1. 73m2 LAB CHEMISTRY METHOD 07/27/2024 3:54 PM [facility] Comment:Calculation based on the??Chronic Kidney Disease Epidemiology Collaboration (CKD-EPI) equation refit??without adjustment for race. BUN/Creatinine Ratio 20.3 LAB CHEMISTRY METHOD 07/27/2024 3:54 PM EST [facility] Calcium 9.6 8.5 - 10.5 mg/dL LAB CHEMISTRY METHOD 07/27/2024 3:54 PM EST [facility] Blood Venous blood specimen / Unknown Venipuncture / Unknown 07/27/2024 11:00 AM EST 07/27/2024 11:00 AM EST us Daniels Simmons CNC MAINTENANCE TECHNICIAN LAB BLOOD ORDERABLES Final Resul t [facility] ([facility]) [facility] [address] [place] [address], from Last 3 Months or Most Recently Relevant to Health Maintenance Insurance [facility] Care Teams Dye Lab Technician Relationship Specialty Start Date End Date Landry Lauren DO [address] [place] [phone] PCP - General Internal Medicine 03/12/22
== END 2024-11-21 10:03 | disposition home or self-care (01) ==
LOC: HO.PMC 09:32
PROVIDERS: PCP Internal Medicine; Visit Provider Internal Medicine
DX: G43.711 Chronic migraine without aura, intractable, with status migrainosus (principal); R25.1 Tremor, unspecified
CPT/HCPCS: 64615; 99214

== ENCOUNTER → 2024-11-21 09:32 | Outpatient (BNVA) | payer BC, SELFPAY | PROVIDERS: PCP Internal Medicine; Visit Provider Internal Medicine | DX: G43.711 Chronic migraine without aura, intractable, with status migrainosus (principal); R25.1 Tremor, unspecified | CPT/HCPCS: 64615; J0585 ==

== ENCOUNTER 2024-12-02 14:38 | Outpatient (AMB) | payer BC, SELFPAY ==
--- NOTE | 2024-12-02 14:39 | MHC.OFFVIS ---
Vital Signs 12/02/24 14:40 Height 5 ft 7 in Weight 200 lb BMI 31.3 Intake Visit Reasons: OV- B/L EMG Review Intake Note: Irwin is a 64 year old right hand dominant male who presents today for a B/L UE EMG review. EMG done on 11/15/24 IMPRESSION: 1. Weqf-tx-[id number] bilateral median neuropathy across carpal tunnel. 2. 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 3. Chronic right mid cervical radiculopathy. Allergies Penicillins Allergy (Severe, Verified 12/02/24 14:42) Anaphylaxis HPI HPI OV- B/L EMG Review: Details: Irwin is a 64 year old right hand dominant male who presents today for a B/L UE EMG review. Patient reports that he experiences intermittent but daily numbness and tingling in both hands. Patient states that he does not find 1 hand more bothersome than the other. No other acute complaints or concerns at this time. EMG done on 11/15/24 IMPRESSION: 1. Edwx-xk-[id number] bilateral median neuropathy across carpal tunnel. 2. 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 3. Chronic right mid cervical radiculopathy. [facility] Medical History (Updated 12/03/24 @ 11:08 by HIEU Marin) Tinnitus, left ear NAFLD (nonalcoholic fatty liver disease) HTN (hypertension) ADHD Depression Allergic rhinitis Migraines DM type 2 (diabetes mellitus, type 2) Review of Systems Const All systems reviewed & are unremarkable except as noted in HPI and below Physical Exam Vital Signs: BMI result Body Mass Index 31.3 Extrem Other: Neuro: Patient reports slightly diminished sensation of the tips of all digits of bilateral hands in the office today No thenar or intrinsic wasting. Good APB muscle firing and good finger cross. Vascular: Capillary refill brisk. ROM: Patient can make a fist and extend all their digits. Skin: No lacerations or abrasions noted. General: No ecchymosis. No erythema or evidence of infection. Assessment & Plan Assessment & Plan (1) Bilateral carpal tunnel syndrome: Code(s): G56.03 - Carpal tunnel syndrome, bilateral upper limbs Category: Medical (2) Cubital tunnel syndrome, bilateral: Code(s): G56.23 - Lesion of ulnar nerve, bilateral upper limbs Category: Medical Plan 1. Bilateral carpal tunnel syndrome 2. Bilateral cubital tunnel syndrome Patient is educated about these conditions Patient is educated about the typical treatment course At this time, patient states he is interested in surgical intervention, but upon further questioning his last A1c was approximately 8.5 or 9 Patient is educated that we can not perform surgery until we have confirmation that his A1c is 8.0 or below, due to concerns for wound healing Patient states he is having new labs done soon, and will call us if his A1c is hand acceptable range Follow-up after A1c is 8.0 or below to discuss surgical intervention, sooner with any acute concerns Coding Level of Care Code New Pt Level 3 (29359) Diagnoses Bilateral carpal tunnel syndrome G56.03 Cubital tunnel syndrome, bilateral G56.23
[2024-12-02 14:40] VITALS: BMI 31.3
--- OUTSIDE RECORDS SUMMARY | 2024-12-02 15:19 | XMS_ITS | Encounter Summary ---
Author Organization [facility] Address [address] [place] [address] Care Team Providers Care Wire Charger Name Role Phone Landry Lauren DO Primary Care Provider [phone] Encounter Details Date Type Department Care Team (Late st Contact Info) Description 07/28/2024 Lab Requisition [facility] [address] [facility] [place] [phone] Landry Lauren DO [address] [place] [phone] Frequency of micturition Social History Tobacco Use [...] atypical urothelial cells. 07/29/2024 6:06 PM EST [facility] Specimen A Adequacy Satisfactory for evaluation 07/29/2024 6:06 PM [facility] Gross Description A. Urine, Voided, : Received 50 ml of yellow fluid; 1 ThinPrep, 07/29/2024 6:06 PM [facility] Disclaimer Unless otherwise specified, all tissue is 10% NB formalin fixed and paraffin embedded. Technical cytopathology services provided by [facility], at [address] [place] [address] (CLIA # [id number]/Romaine Rodriguez MD, Warehouse Shift Supervisor.) 07/29/2024 6:06 PM [facility] Urine Urine specimen from urethra / Unknown 07/21/2024 07/28/2024 10:54 AM EST Landry Lauren DO LAB CYTOLOGY ORDERABLES Final Result [facility] [address] [place] [address], documented in this encounter Visit Diagnoses Diagnosis Frequency of micturition Urinary frequency documented in this encounter Care Teams Wire Charger Relationship Specialty Start Date End Date Landry Lauren DO [address] [place] [phone] PCP - General Internal Medicine 03/12/22 documented as of this encounter
--- OUTSIDE RECORDS SUMMARY | 2024-12-02 15:19 | XMS_ITS | Clinical Summary ---
Author Organization [facility] Address [address] [place] [address] Phone Care Team Providers Care Checkering Machine Adjuster Name Role Phone Landry Lauren DO Primary Care Provider [phone] Surgical History Surgery Date Site/Laterality Comments SINUS SURGERY PROCEDURE: OK UNLISTED PROCEDURE ACCESSORY SINUSES; COMMENT: Chu - frontal to maxillary shunts made COLONOSCOPY 05/14/12 PROCEDURE: HISTORICAL COLONOSCOPY; COMMENT: hemorrhoids; repeat in ten yrs ESOPHAGOGASTRODUODENOSCOPY 09/11- PROCEDURE: OK ESOPHAGOGASTRODUODENOSCOPY TRANSORAL DIAGNOSTIC; COMMENT: reactive gastropathy without [...] use of insulin (CMS/HCC V24, CMS/HCC V28) 06/03/2018 DX:Type 2 diabetes mellitus without [...] Influencers of Health Screening 07/19/2022 COVID-19 Vaccine (1 - 2023-2 5 season) 2024 Diabetes: Blood [...] PM EST Enlarged prostate with urinary obstruction MICROALBUMIN CREATININE URINE RATIO Routine 08/24/2024 9:42 AM EST Impaired fasting glucose Screening for ischemic heart disease Screening for thyroid disorder Routine general medical examination at a [facility] care facility DM (diabetes mellitus) (CMS/HCC V24, CMS/HCC V28) Stiffness due to immobility Hypertension Bilateral hand swelling BASIC METABOLIC PANEL Routine 07/27/2024 11:00 AM EST Frequent urination DM2 (diabetes mellitus, type 2) (CMS/HCC V24, CMS/HCC V28) Depression ADHD Neuropathy Hyperlipemia HEMOGLOBIN A1C Routine 07/27/2024 11:00 AM EST Frequent urination DM2 (diabetes mellitus, type 2) (CMS/HCC V24, CMS/HCC V28) Depression ADHD Neuropathy Hyperlipemia LIPID PANEL WITH REFLEX TO DIRECT LDL Routine 07/27/2024 11:00 AM EST Frequent urination DM2 (diabetes mellitus, type 2) (CMS/HCC V24, CMS/HCC V28) Depression ADHD Neuropathy Hyperlipemia from Last 3 Months or Most Recently Relevant to Health Maintenance Results * Prostate specific antigen screen (10/05/2024 2:01 PM EST) PSA 1.86 0.00 - 4.00 ng/mL LAB CHEMISTRY METHOD 10/05/2024 5:10 PM EST [facility] Blood Venous blood specimen / Unknown Venipuncture / Unknown 10/05/2024 2:01 PM EST 10/05/2024 2:02 PM EST Narrative [facility] - 10/05/2024 5:10 PM EST The Siemens Advia Centaur Chemiluminescent Immunoassay is used. Results obtained with different assay methods or kits cannot be used interchangeably. Results cannot be interpreted as absolute evidence of the presence or absence of malignant disease. Donte Suarez MD LAB BLOOD ORDERABLES Fin al Result Performing Organization Address [facility] Co de Phone Number [facility] [address] [place] [address], * Microalbumin creatinine urine ratio (08/24/2024 9:42 AM EST) Creatinine, Urine 154.0 mg/dL LAB CHEMISTRY METHOD 08/24/2024 11:40 AM EST [facility] Microalb, Ur 17.6 0.0 - 29.0 mg/L LAB CHEMISTRY METHOD 08/24/2024 11:40 AM EST [facility] Microalb/Creat Ratio 11 <30 mg/g creat LAB CHEMISTRY METHOD 08/24/2024 11:40 AM EST [facility] Urine Urine specimen obtained by clean catch procedure / Unknown Non-blood Collection / Unknown 08/24/2024 9:42 AM EST 08/24/2024 9:43 AM EST [facility] [employer] [facility] URINE ORDERABLES Final Resul t Performing Organization Address [facility] Co de Phone Number [facility] [address] [place] [address], * (ABNORMAL) Lipid panel with reflex to direct LDL (07/27/2024 11:00 AM EST) Cholesterol 150 0 - 200 mg/dL LAB CHEMISTRY METHOD 07/27/2024 3:33 PM [facility] Triglycerides 381(H) 0 - 150 mg/dL LAB CHEMISTRY METHOD 07/27/2024 3:33 PM EST [facility] HDL 41 >=40 mg/dL LAB CHEMISTRY METHOD 07/27/2024 3:33 PM EST [facility] LDL Calculated 33 0 - 100 mg/dL LAB CHEMISTRY METHOD 07/27/2024 3:33 PM [facility] VLDL Cholesterol Gregorio 76.2 mg/dL LAB CHEMISTRY METHOD 07/27/2024 3:33 PM [facility] Non HDL Chol. (LDL+VLDL) 109 <145 mg/dL LAB CHEMISTRY METHOD 07/27/2024 3:33 PM [facility] Chol/HDL Ratio 3.7 0.0 - 4.4 LAB CHEMISTRY METHOD 07/27/2024 3:33 PM [facility] Blood Venous blood specimen / Unknown Venipuncture / Unknown 07/27/2024 11:00 AM EST 07/27/2024 11:00 AM EST us [facility] [employer] [facility] BLOOD ORDERABLES Final Resul t [facility] [address] [place] [address], * (ABNORMAL) Hemoglobin A1c (07/27/2024 11:00 AM EST) Hemoglobin A1C 13.0(H) <6.5 % LAB CHEMISTRY METHOD 07/27/2024 8:30 PM [facility] Mean Bld Glu Estim. 326 mg/dL LAB CHEMISTRY METHOD 07/27/2024 8:30 PM [facility] Blood Venous blood specimen / Unknown Venipuncture / Unknown 07/27/2024 11:00 AM EST 07/27/2024 11:00 AM EST us [employer] [facility] BLOOD ORDERABLES Final Resul t [facility] [address] [place] [address], * (ABNORMAL) Basic metabolic panel (07/27/2024 11:00 AM EST) Sodium 129(L) 133 - 145 mmol/L LAB CHEMISTRY METHOD 07/27/2024 3:54 PM [facility] Potassium 5.1 3.5 - 5.5 mmol/L LAB CHEMISTRY METHOD 07/27/2024 3:54 PM [facility] Chloride 93(L) 96 - 110 mmol/L LAB CHEMISTRY METHOD 07/27/2024 3:54 PM [facility] CO2 30 21 - 32 mmol/L LAB CHEMISTRY METHOD 07/27/2024 3:54 PM [facility] Anion Gap 6 3 - 11 LAB CHEMISTRY METHOD 07/27/2024 3:54 PM [facility] Glucose 690(HH) 70 - 100 mg/dL LAB CHEMISTRY METHOD 07/27/2024 3:54 PM [facility] BUN 27(H) 5 - 25 mg/dL LAB CHEMISTRY METHOD 07/27/2024 3:54 PM [facility] Creatinine 1.33(H) 0.70 - 1.30 mg/dL LAB CHEMISTRY METHOD 07/27/2024 3:54 PM [facility] eGFR 60 >=60 mL/min/1. 73m2 LAB CHEMISTRY METHOD 07/27/2024 3:54 PM [facility] Comment:Calculation based on the??Chronic Kidney Disease Epidemiology Collaboration (CKD-EPI) equation refit??without adjustment for race. BUN/Creatinine Ratio 20.3 LAB CHEMISTRY METHOD 07/27/2024 3:54 PM EST [facility] Calcium 9.6 8.5 - 10.5 mg/dL LAB CHEMISTRY METHOD 07/27/2024 3:54 PM EST [facility] Blood Venous blood specimen / Unknown Venipuncture / Unknown 07/27/2024 11:00 AM EST 07/27/2024 11:00 AM EST us [employer] [facility] BLOOD ORDERABLES Final Resul t [facility] [address] [place] [address], from Last 3 Months or Most Recently Relevant to Health Maintenance Insurance [facility] Care Teams Checkering Machine Adjuster Relationship Specialty Start Date End Date Landry Lauren DO [address] [place] [phone] PCP - General Internal Medicine 03/12/22
--- OUTSIDE RECORDS SUMMARY | 2024-12-02 15:19 | XMS_ITS | Data Portability ---
Author Organization [place] - [facility], Allergy Address [address] [address] Care Team Providers Care Veneer Production Machine Operator Name Role Phone FIDELINA RAMOS Primary Care Provider [phone] FIDELINA RAMOS Referring Provider Assessment Encounter Date [...] Go To The Location Of Their Choice, [id number] 07/30/2024 20:16:29 CBC w/ auto diff 2023 024 CHRISTA [facility] (Centralized Electronic Ordering - All Locations), Patient Can Go To The Location Of Their Choice, [id number] 07/30/2024 20:16:29 Referral None record ed. Procedures None record ed. Surgeries None record ed. Imaging CT, sinuse s, w/o contra st 2023 [email or web address] [facility], [address] [place] [address] [place], [address], 05/20/2024 12:49:34 CT, maxill ofacia l, w/o contra st 2023 024 [email or web address] [facility], [address] [place] [address], [phone], 04/25/2024 14:03:17 Medication Orders budeso nide 0.5 mg/2 mL suspen duncan for nebuli zation 2024 025 [id number], [address] [place] [address], [phone], 11/09/2024 13:25:01 Dupixe nt 300 mg/2 mL subcut aneous pen inject or 2024 025 [id number], [address] [place] [address], [phone], 11/09/2024 13:25:56 Xhance 93 mcg/ac tuatio n breath activa sandee aeroso l 2023 024 [employer], [facility] (New Address), [address] [place] [address], [address], [place], [phone], 05/20/2024 13:15:15 Patient TargetsNo targets recorded. Patient InstructionsNo instructions recorded. Reason for Referral None Reported. Results Created Date Observation Date Name Description Value Unit Range Abnormal Flag Note LastModifiedBy Organization Detail LastModifiedTime 07/28/20 24 07/29/2024 CBC WITH DIFFE RENTI AL/PL ATELE T WBC 5.9 x10e3 /uL 3.4-10 .8 normal Not Available [facility] ([facility]) [address] [facility], [place], [address], 07/30/2024 20:16:29 07/28/20 24 07/29/2024 CBC WITH DIFFE RENTI AL/PL ATELE T RBC 5.19 x10e6 /uL 4.14-5 .80 normal Not Available [facility] ([facility]) [address] [place], [address], 07/30/2024 20:16:29 07/28/20 24 07/29/2024 CBC WITH DIFFE RENTI AL/PL ATELE T hemoglobin 14.6 g/dL 13.0-1 7.7 normal Not Available [facility] ([facility]) [address] [place], [address], 07/30/2024 20:16:29 07/28/20 24 07/29/2024 CBC WITH DIFFE RENTI AL/PL ATELE T hematocrit 45.9 % 37.5-5 1.0 normal Not Available [facility] ([facility]) [address] [place], [address], 07/30/2024 20:16:29 07/28/20 24 07/29/2024 CBC WITH DIFFE RENTI AL/PL ATELE T MCV 88 fL 79-97 normal Not Available [facility] ([facility]) [address] [place], [address], 07/30/2024 20:16:29 07/28/20 24 07/29/2024 CBC WITH DIFFE RENTI AL/PL ATELE T MCH 28.1 pg 26.6-3 3.0 normal Not Available [facility] ([facility]) [address] [place], [address], 07/30/2024 20:16:29 07/28/20 24 07/29/2024 CBC WITH DIFFE RENTI AL/PL ATELE T MCHC 31.8 g/dL 31.5-3 5.7 normal Not Available [facility] ([facility]) [address] [place], [address], 07/30/2024 20:16:29 07/28/20 24 07/29/2024 CBC WITH DIFFE RENTI AL/PL ATELE T RDW 12.4 % 11.6-1 5.4 Not Available [facility] ([facility]) [address] [facility], [place], [address], 07/30/2024 20:16:29 07/28/20 24 07/29/2024 CBC WITH DIFFE RENTI AL/PL ATELE T platelets 161 x10e3 /uL 150-45 0 normal Not Available [facility] ([facility]) [address] [facility], [place], [address], 07/30/2024 20:16:29 07/28/20 24 07/29/2024 CBC WITH DIFFE RENTI AL/PL ATELE T neutrophils 57 % not estab. normal Not Available [facility] ([facility]) [address] [facility], [place], [address], 07/30/2024 20:16:29 07/28/20 24 07/29/2024 CBC WITH DIFFE RENTI AL/PL ATELE T lymphs 26 % not estab. normal Not Available [facility] ([facility]) [address] [facility], [place], [address], 07/30/2024 20:16:29 07/28/20 24 07/29/2024 CBC WITH DIFFE RENTI AL/PL ATELE T monocytes 8 % not estab. normal Not Available [facility] ([facility]) [address] [facility], [place], [address], 07/30/2024 20:16:29 07/28/20 24 07/29/2024 CBC WITH DIFFE RENTI AL/PL ATELE T eos 8 % not estab. normal Not Available [facility] ([facility]) [address] [place], [address], 07/30/2024 20:16:29 07/28/20 24 07/29/2024 CBC WITH DIFFE RENTI AL/PL ATELE T basos 1 % not estab. normal Not Available [facility] ([facility]) [address] [place], [address], 07/30/2024 20:16:29 07/28/20 24 07/29/2024 CBC WITH DIFFE RENTI AL/PL ATELE T immature cells DRAPERY AND UPHOLSTERY MEASURER Not Available [facility] ([facility]) [address] [facility], [place], [address], 07/30/2024 20:16:29 07/28/20 24 07/29/2024 CBC WITH DIFFE RENTI AL/PL ATELE T neutrophils (absolute) 3.3 x10e3 /uL 1.4-7. 0 normal Not Available [facility] ([facility]) [address] [facility], [place], [address], 07/30/2024 20:16:29 07/28/20 24 07/29/2024 CBC WITH DIFFE RENTI AL/PL ATELE T lymphs (absolute) 1.5 x10e3 /uL 0.7-3. 1 normal Not Available [facility] ([facility]) [address] [place], [address], 07/30/2024 20:16:29 07/28/20 24 07/29/2024 CBC WITH DIFFE RENTI AL/PL ATELE T monocytes(ab solute) 0.5 x10e3 /uL 0.1-0. 9 normal Not Available [facility] ([facility]) [address] [place], [address], 07/30/2024 20:16:29 07/28/20 24 07/29/2024 CBC WITH DIFFE RENTI AL/PL ATELE T eos (absolute) 0.5 x10e3 /uL 0.0-0. 4 above high normal Not Available [facility] ([facility]) [address] [place], [address], 07/30/2024 20:16:29 07/28/20 24 07/29/2024 CBC WITH DIFFE RENTI AL/PL ATELE T baso (absolute) 0.1 x10e3 /uL 0.0-0. 2 normal Not Available [facility] ([facility]) [address] [facility], [place], [address], 07/30/2024 20:16:29 07/28/20 24 07/29/2024 CBC WITH DIFFE RENTI AL/PL ATELE T immature granulocytes 0 % not estab. Not Available [facility] ([facility]) [address] [facility], [place], [address], 07/30/2024 20:16:29 07/28/20 24 07/29/2024 CBC WITH DIFFE RENTI AL/PL ATELE T immature grans (abs) 0.0 x10e3 /uL 0.0-0. 1 Not Available [facility] ([facility]) [address] [facility], [place], [address], 07/30/2024 20:16:29 07/28/20 24 07/29/2024 CBC WITH DIFFE RENTI AL/PL ATELE T NRBC DRAPERY AND UPHOLSTERY MEASURER Not Available [facility] ([facility]) [address] [facility], [place], [address], 07/30/2024 20:16:29 07/28/20 24 07/29/2024 CBC WITH DIFFE RENTI AL/PL ATELE T hematology comments: DRAPERY AND UPHOLSTERY MEASURER Not Available [facility] ([facility]) [address] [facility], [place], [address], 07/30/2024 20:16:29 07/28/20 24 07/30/2024 IMMUN OGLOB ULIN E, TOTAL immunoglobul in E, total 269 IU/mL 6-495 Not Available [facility] ([facility]) [address] [facility], [place], [address], 07/30/2024 20:16:29 08/02/20 24 08/05/2024 C-ANC A+P-A NCA W/REF AUGUSTINA cytoplasmic (C-anca) <1:20 titer neg:<1 :20 Not Available [facility] ([facility]) [address] [facility], [place], [address], 08/06/2024 06:28:18 08/02/20 24 08/05/2024 C-ANC A+P-A [...] ng of posit judy sera with both MA-3 and MPO-A NCA enzym e immun oassa ys. As many as 5% serum sampl es are posit judy only by EIA. Ref. AM J Clin Patho l 1999; 111:5 07-51 3. Not Available [facility] ([facility]) [address] [facility], [place], [address], 08/06/2024 06:28:18 08/02/20 24 08/06/2024 MYELO PEROX IDASE (MPO) myeloperoxid ase (mpo) 438 pmol/ L 0-469 Low CVD Risk <470 Moder ate Risk 470 - 539 High Risk >539 Not Available [facility] ([facility]) [address] [facility], [place], [address], 08/06/2024 06:28:19 08/02/20 24 08/02/2024 SEDIM ENTAT ION RATE- WESTE RGREN sedimentatio n rate-westerg solange 2 mm/HR 0-30 normal Not Available [facility] ([facility]) [address] [facility], [place], [address], 08/06/2024 06:28:20 08/20/12/23/2019 imagi ng/di agnos tic resul t No observ ation record ed. [email or web address] Not Available 14:54:58 03/29/2012/23/2019 audio gram No observ ation record ed. [email or web address] Not Available 14:55:01 05/20/20 CT, sinus es, w/o contr ast No observ ation record ed. [facility] [address], [address], 05/20/2024 12:49:28 05/23/20 audio gram No observ ation record ed. [email or web address] Not Available 05/10 09:35:11 05/30/20 24 05/20/2024 CT, sinus es, w/o contr ast No observ ation record ed. [facility] [place] [address], [place], [address], 05/30/2024 16:57:59 Result Notes None recorded. Problems Name Problem SNOMED Code Status Onset Date Resolution Date Notes Provider Name and Address Organization Details Recorded Time Bilateral tinnitus 76129094806 02 Active 2019 Tinnitus, bilateral ; Note: Date Diagnosed : 12/23/2019 9:14 AM (H93.13) Not Available [facility] 4 03:23:04 Sensorine ural hearing loss of bilateral ears 648474217 Active 2019 Sensorine ural hearing loss, bilateral ; Note: Date Diagnosed : 12/23/2019 9:40 AM (H90.3) Not Available [facility] 4 03:23:03 Chronic rhinitis 85414035 Active 2019 Chronic rhinitis; Note: Date Diagnosed : 12/23/2019 9:14 AM (J31.0) Not Available [facility] 4 03:23:03 Migraine 73450730 Active 2019 Other migraine, not intractab le, with status migrainos us; Note: Date Diagnosed : 12/23/2019 9:14 AM (G43.801) Not Available [facility] 4 03:23:03 Chronic sinusitis 22570647 Active 2023 PAIGE SARAVIA PA-C [address] [facility] [place],[address], [place], [place], [address] , [facility] - [facility] 4 11:35:51 Abnormal auditory perceptio n 30064661 Active 2023 KENDALL IRENE MD 100 [facility],[place] [address], [place], [place], [address] , [facility] - [facility] [place] 4 13:13:50 Abnormal auditory perceptio n 77096761 Active 2023 KENDALL IRENE MD [address] [facility],[place] [address], [place], [place], [address] , [facility] - [facility] [place] 4 13:14:03 Anxiety 72867001 Active 2023 KENDALL IRENE MD [address] [facility],[place] [address], [place], [address] , 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,[place] [address], [place], [place], [address] , [facility] - [facility] [place] 4 14:17:24 Polyp of nasal cavity 319815931 Active 2023 KENDALL IRENE MD [address] [facility],[address] [facility], [place], [place], [address] , [facility] - [facility] [place] 4 14:17:36 Eosinophi l count above reference range 272386226 Active 2023 KENDALL IRENE MD [address] [facility],[address], [place], [place], [address] , [facility] - [facility] [place] 4 17:12:49 Sinusitis co-occurr ent with nasal polyps 72727320758 102 Active 2023 KENDALL IRENE MD [address], [facility] [place], [address] , [place] - [facility] [place] 4 17:13:02 Polyp of nasal cavity and/or nasal sinus 684230073 Active 2023 KENDALL IRENE MD [address] [facility] [address],[place] [facility], [place], [address] , [place] - [facility] [place] 4 17:14:06 Problem Notes None recorded. Procedures Surgical History Date Name Laterality Status Provider Name and Address Organization Details Recorded Time 5 JMSNasal/Sinus Endoscopy-PRIOR surgical cavities completed KENDALL ALAMO MD [address] [facility] [place],[address], [address], [place] - [facility] [place] 11/09/2024 13:22:35 4 JMSNasal/Sinus Endoscopy-PRIOR surgical cavities completed KENDALL ALAMO MD [address] [facility] [place] [address], [place], [address], [place] [facility] [place] 07/28/2024 14:17:10 4 Comp Audio with Tymps (61499 & 98438) completed ANA SANCHEZ [address] [facility] [place] [address], [place], [address], [place] [facility] 05/20/2024 13:42:34 4 JMSNasal/Sinus Endoscopy-PRIOR surgical cavities completed KENDALL ALAMO MD [address] [facility] [place],[address], [address], [place] - [facility] [place] 03/28/2024 12:32:38 5 Sinus Surgery completed Harshad Lopez [place] - [facility] [place] 03/28/2024 11:00:10 functional endoscopic sinus surgery completed KENDALL ALAMO MD [address] [facility] [address], [address], [place] - [facility] [place] 05/20/2024 12:50:32 Imaging Results Imaging Date Name Status [facility]Modified by [facility] Details LastModified Time 12/23/2019 imaging/diagno stic result completed Information not available 03/29/2024 14:54:58 12/23/2019 audiogram completed Information not available 03/29/2024 14:55:01 05/20/2024 CT, sinuses, w/o contrast completed [facility] [address], [address], 05/20/2024 12:49:28 05/23/2024 audiogram completed [email or web address] Information n ot available 05/23/2024 09:35:11 05/20/2024 CT, sinuses, w/o contrast completed [facility] 100 [facility] 100, [place], [address], 05/30/2024 16:57:59 Procedure Notes None recorded. Medical [...] mg tablet 11/09 completed Medicati on ID: [id number] D uration Value: 30 Brand Name: Zyrtec [...] mg/2 mL suspensio n for nebulizat ion USE 1 VIAL VIA NEBULIZE R TWICE DAILY active Not Available Not Available No t Available mupirocin 2 % topical ointment Apply 1 a small amount to affected area every eight hours 11/09 completed Medicati on ID: [id number] D uration Value: 10 Prescri bed By Name: Mode Hollins nd Name: mupiroci jenni Send Method: E-Prescr ibed Sub s [...] iron tablet 11/09 completed Medicati on ID: [id number] B rand Name: Ximena Send Method: E-Prescr [...] Available No t Available FreeStyle Andrea 3 Temperance USE TO CHECK GLUCOSE AT LEAST 4 [...] Updated DateTime 11/09/2024 170.18 cm 30.5 kg/m2 88399.51 g Lilly Huerta [place] - [facility] 11/09/2024 13:00:08 Date Recorded Body height Body mass index (BMI) Body weight Provider Name and Address Organization Details Last Updated DateTime 03/28/2024 170.18 cm 29.8 kg/m2 05709.55 g Harshad Lopez [place] - [facility] 03/28/2024 11:05:35 Date Recorded Body height Body mass index (BMI) Body weight Provider Name and Address Organization Details Last Updated DateTime 07/28/2024 170.18 cm 32.1 kg/m2 24541.44 g Harshad Lopez [place] [facility] 07/28/2024 13:48:04 Social History None recorded. Functional Status None recorded. Mental Status None recorded. Family History Nothing Reported. Medical History Condition Response Anxiety Y Migraines Y Nasal or Sinus Problems Y Nasal polyps Y Past Encounters Encounter ID Performer Location Encounter Start Date Encounter Closed Date Diagnosis/Indication Diagnosis SNOMED-CT Code Diagnosis ICD10 Code Diagnosis Note [id number] KENDALL IRENE MD [facility] [address] [address] 03/28/2024 10:18:36 03/28/2024 11:43:41 Chronic rhinitis 81206100 J31.0 Consider PNN ablation TNSS=11 (2 for sneezing) Chronic sinusitis 161907 00 J32.9 Migraine 31377097 G43.80 1 [id number] KENDALL IRENE MD [facility] [address] [address] 05/20/2024 12:31:43 05/20/2024 14:29:13 Chronic sinusitis 83351065 J32.9 Migraine 28094496 G43.80 1 Abnormal a uditory perception 39211506 H93.293 Sensorineu ral hearing loss of bilateral ears 111121849 H90.3 Audiologic al evaluation results: Right ear: [...] not maintain a hermetic seal}} Bilateral tinnitus 90938 14780 102 H93.13 [id number] KENDALL IRENE MD [facility] [address] [address] 07/28/2024 13:36:50 07/28/2024 14:20:39 Migraine 45138679 G43.801 Anxiety 96545711 F41.9 Polypoid s inus degeneration 45005243 J33.1 Polyp of nasal cavity 73 7129723 J33.0 [id number] KENDALL IRENE MD [facility] [address] [address] 11/09/2024 12:49:36 11/09/2024 13:30:06 Migraine 58210605 G43.801 Anxiety 52988869 F41.9 Polypoid s inus degeneration 05238364 J33.1 Polyp of nasal cavity 73 5789461 J33.0 Health Concerns Section Related Observation LastModified by Organization Detai ls LastModified Time None Recorded Concern Status LastModified by Organization Details LastModified Time None Recorded Advance Directives Directive None Recorded Payers Encounter Date Sequence Insurance Name Policy Number Policy Randall Covered Member ID Randall Member ID Guarantor Name 03/28/2024 1 [facility] [employer] ([facility] [id number] Irwin Musa Vecchiarelli [id number] Irwin Daniel Vecchiarelli 05/20/2024 1 [facility] [employer] ([facility] [id number] Irwin Musa Vecchiarelli [id number] Irwin Sanchez Willii Sr 07/28/2024 1 [facility] ([facility] [id number] Irwin Márquezi [id number] Irwin V Vechectorlli Sr 11/09/2024 1 [facility] WINNIE [employer] ([facility]) [id number] Irwin Márquezi [id number] Irwin Sanchez Vecchijose angellli Sr Notes Date Note Type Note Provider [...] past both at this office and the [facility] without relief of his symptoms. He drinks very little caffeine. KENDALL ALAMO MD 100 [facility],[address], [address], [facility] 03/28/2024 12:32:56 05/20/2024 text/html Chronic sinus pressure [...] device in left ear KENDALL ALAMO MD [address] [facility], [address], [facility] - [facility] 05/20/2024 14:06:20 07/28/2024 text/html Patient with his [...] with weather changes KENDALL ALAMO MD 100 [facility],[address], [address], [facility] - [facility] 07/28/2024 14:19:26 11/09/2024 text/html Patient with his [...] with weather changes KENDALL ALAMO MD 100 [facility],[place] [address], [place], [address], [facility] 11/09/2024 13:26:35
== END 2024-12-02 15:06 | disposition home or self-care (01) ==
LOC: HO.HOS 14:39
PROVIDERS: PCP Internal Medicine
DX: G56.03 Carpal tunnel syndrome, bilateral upper limbs (principal); G56.23 Lesion of ulnar nerve, bilateral upper limbs; E11.9 Type 2 diabetes mellitus without complications
CPT/HCPCS: 99203

== ENCOUNTER 2025-01-12 14:32 | Outpatient (AMB) | payer BC, SELFPAY ==
--- NOTE | 2025-01-12 14:47 | A.OFFVIS_ITS ---
Vital Signs 01/12/25 14:53 Height 5 ft 7 in Weight 200 lb BMI 31.3 Intake Visit Reasons: Preop: LT cubital/CTR 01/19/25 AR Intake Note: Irwin is a 64 year old right hand dominant male who presents today for a pre operative visit to discuss his left cubital and carpal tunnel release with Dr rAely Freed on 01/22/25. Allergies Penicillins Allergy (Severe, Verified 01/12/25 14:53) Anaphylaxis HPI HPI Preop: LT cubital/CTR 01/19/25 AR: Details: Irwin is a 64 year old right hand dominant male who presents today for a pre operative visit to discuss his left cubital and carpal tunnel release with Dr Arely Freed on 01/22/25. Patient reports his symptoms have remained consistent from previous evaluation, and then it would like to still proceed with surgery. No other acute complaints or concerns at this time. [facility] Medical History (Updated 12/03/24 @ 11:08 by HIEU Marin) Tinnitus, left ear NAFLD (nonalcoholic fatty liver disease) HTN (hypertension) ADHD Depression Allergic rhinitis Migraines DM type 2 (diabetes mellitus, type 2) Review of Systems Const All systems reviewed & are unremarkable except as noted in HPI and below Physical Exam Vital Signs: BMI result Body Mass Index 31.3 Extrem Other: Neuro: Patient reports slightly diminished sensation of the tips of all digits of bilateral hands in the office today No thenar or intrinsic wasting. Good APB muscle firing and good finger cross. Vascular: Capillary refill brisk. ROM: Patient can make a fist and extend all their digits. Skin: No lacerations or abrasions noted. General: No ecchymosis. No erythema or evidence of infection. Assessment & Plan Assessment & Plan (1) Cubital tunnel syndrome, bilateral: Code(s): G56.23 - Lesion of ulnar nerve, bilateral upper limbs Category: Medical (2) Bilateral carpal tunnel syndrome: Code(s): G56.03 - Carpal tunnel syndrome, bilateral upper limbs Category: Medical Plan 1. Left cubital tunnel syndrome 2. Left carpal tunnel syndrome Symptoms intermittent, daily, worse at night I educated the patient about the condition. I discussed both operative and nonoperative treatment options. The patient would like to proceed with surgery. The risks and benefits of operative treatment were discussed with the patient and the patient wishes to proceed with surgery. These risks include, but are not limited to, risk of damage to blood vessels, nerves, tendons, infection, recurrence, incomplete relief of preoperative symptoms, persistent pain, possible need for further surgery, and the risks associated with regional blocks and/or anesthesia. Plan is to take the patient to the operating room at some point in the next few weeks for the following procedures: 1. Left cubital tunnel release under general 2. Left carpal tunnel release under general All of the preoperative paperwork including the consent was discussed today. All of the patient's questions were answered in the clinic today. The patient understands that they will be in contact with our surgical orderly to discuss scheduling their procedure. Patient reports diabetes, last A1c 7.0 Denies blood thinners, asthma, heart issues, lung issues, kidney issues, or current smoking. Coding Level of Care Code Est Pt Level 4 (97858) Diagnoses Cubital tunnel syndrome, bilateral G56.23 Bilateral carpal tunnel syndrome G56.03
[2025-01-12 14:53] VITALS: BMI 31.3
--- OUTSIDE RECORDS SUMMARY | 2025-01-12 17:11 | XMS_ITS | Encounter Summary ---
Author Organization [facility] Address [address] [place] [address] Care Team Providers Care Ship Yard Electrical Person Name Role Phone Landry Lauren DO Primary Care Provider [phone] Encounter Details Date Type Department Care Team (Late st Contact Info) Description 07/28/2024 Lab Requisition [facility] - Main Lab [address] [facility] [place] [phone] Landry Lauren DO [address] [place] [phone] Frequency of micturition Social History Tobacco Use [...] atypical urothelial cells. 07/29/2024 6:06 PM EST [facility] Specimen A Adequacy Satisfactory for evaluation 07/29/2024 6:[address] [facility] Gross Description A. Urine, Voided, : Received 50 ml of yellow fluid; 1 ThinPrep, 07/29/2024 6:[address] [facility] Disclaimer Unless otherwise specified, all tissue is 10% NB formalin fixed and paraffin embedded. Technical cytopathology services provided by [facility], at [address] [place] [address] (CLIA # [id number]/Romaine Rodriguez MD, Glass Etcher Helper.) 07/29/2024 6:[address] [facility] Urine Urine specimen from urethra / Unknown 07/21/2024 07/28/2024 10:54 AM EST Landry Lauren DO LAB CYTOLOGY ORDERABLES Final Result [facility] [address] [place] [address], documented in this encounter Visit Diagnoses Diagnosis Frequency of micturition Urinary frequency documented in this encounter Care Teams Ship Yard Electrical Person Relationship Specialty Start Date End Date Landry Lauren DO [address] [place] [phone] PCP - General Internal Medicine 03/12/22 documented as of this encounter
== END 2025-01-12 15:10 | disposition home or self-care (01) ==
LOC: HO.HOS 14:33
PROVIDERS: PCP Internal Medicine
DX: G56.23 Lesion of ulnar nerve, bilateral upper limbs (principal); G56.03 Carpal tunnel syndrome, bilateral upper limbs
CPT/HCPCS: 99214

== ENCOUNTER → 2025-01-12 14:32 | Outpatient (BNVA) | payer BC, SELFPAY | PROVIDERS: PCP Internal Medicine ==

== ENCOUNTER 2025-01-19 05:49 | Day surgery (SDC) | payer BC, SELFPAY ==
--- OUTSIDE RECORDS SUMMARY | 2025-01-10 15:55 | XMS_ITS | Encounter Summary ---
Author Organization [facility] Address [address] [place] [address] Care Team Providers Care Cargo Tank Mechanic Name Role Phone Landry Lauren DO Primary Care Provider [phone] Encounter Details Date Type Department Care Team (Late st Contact Info) Description 07/28/2024 Lab Requisition [facility] - Main Lab [address] [facility] [place] [phone] Landry Lauren DO [address] [place] [phone] Frequency of micturition Social History Tobacco Use [...] atypical urothelial cells. 07/29/2024 6:06 PM EST [facility] Specimen A Adequacy Satisfactory for evaluation 07/29/2024 6:06 PM [facility] Gross Description A. Urine, Voided, : Received 50 ml of yellow fluid; 1 ThinPrep, 07/29/2024 6:06 PM [facility] Disclaimer Unless otherwise specified, all tissue is 10% NB formalin fixed and paraffin embedded. Technical cytopathology services provided by [facility], at [address] [place] [address] (CLIA # [id number]/Romaine Rodriguez MD, Equity Sales Assistant.) 07/29/2024 6:06 PM [facility] Urine Urine specimen from urethra / Unknown 07/21/2024 07/28/2024 10:54 AM EST Landry Lauren DO LAB CYTOLOGY ORDERABLES Final Result [facility] [address] [place] [address], documented in this encounter Visit Diagnoses Diagnosis Frequency of micturition Urinary frequency documented in this encounter Care Teams Cargo Tank Mechanic Relationship Specialty Start Date End Date Landry Lauren DO [address] [place] [address] PCP - General Internal Medicine 03/12/22 documented as of this encounter
[2025-01-17 09:16] VITALS: BMI 31.3
--- NOTE | 2025-01-18 08:28 | HO.ANESPROP2 ---
Documented by User: Nadeen Mendez NP 01/18/25 08:28 HPI - Anesthesia Eval Consult details Narrative: 64yo M for Left Cubital Tunnel Release, Carpal Tunnel Release Anesthesia Pre-Procedure Meds Is the patient on any of the following meds?: GLP1/DPP4 PMFSH Active Problems Active Problems: All Active Problems Cubital tunnel syndrome, bilateral (Acute) Bilateral carpal tunnel syndrome (Acute) Occasional tremors (Acute) Rotator cuff impingement syndrome (Acute) Cervical radiculitis (Acute) Sciatica of left side (Acute) Tinnitus, left ear (Acute) NAFLD (nonalcoholic fatty liver disease) (Acute) HTN (hypertension) (Acute) ADHD (Acute) Depression (Acute) Allergic rhinitis (Acute) Migraines (Acute) DM type 2 (diabetes mellitus, type 2) (Acute) Past Medical History Medical History Tinnitus, left ear NAFLD (nonalcoholic fatty liver disease) HTN (hypertension) ADHD Depression Allergic rhinitis Migraines DM type 2 (diabetes mellitus, type 2) Social History Social History Patient Tobacco Use Status: Former Tobacco user Have you been hit, kicked, punched, or otherwise hurt by someone within the past year? If so, by whom?: No Are you DNR?: No Advance Directives: No Advance Directives Information Provided: Yes Meds Allergies Allergy/AdvReac Type Severity Reaction Status Date / Time Penicillins Allergy Severe Anaphylaxis Verified 01/12/25 14:53 Home Medications ?Medication ?Instructions ?Recorded ?Confirmed ?Last Taken ?Type cetirizine 10 mg tablet (24Hour 10 mg PO DAILY PRN 03/18/21 11/21/24 Unknown History Allergy) cholecalciferol (vitamin D3) 25 25 mcg PO DAILY 03/18/21 11/21/24 Unknown History mcg (1,000 unit) capsule dextroamphetamine-amphetamine 10 10 mg PO DAILY 03/18/21 11/21/24 Unknown History mg tablet fluoxetine 10 mg capsule 10 mg PO BID 03/18/21 11/21/24 Unknown History metformin 1,000 mg tablet 1,000 mg PO BID 03/18/21 11/21/24 Unknown History [id number]-ql-[id number] 300 mcg-K 60 1 tab PO DAILY 03/18/21 11/21/24 Unknown History mcg-lycop 600 mcg-lutein 300 mcg tablet (Centrum Silver Men) sumatriptan succinate 25 mg tablet 25 mg PO Q2-4H PRN 03/18/21 11/21/24 Unknown History tamsulosin 0.4 mg capsule 0.4 mg PO BEDTIME 03/18/21 11/21/24 Unknown History vitamin A-vitamin C-vit E-min 1 tab PO DAILY 03/18/21 11/21/24 Unknown History tablet dulaglutide 3 mg/0.5 mL 3 mg subcut QWEEK 08/20/21 11/21/24 01/04/25 History subcutaneous pen injector (Trulicity) atorvastatin 40 mg tablet 40 mg PO DAILY 11/21/24 11/21/24 Unknown History insulin glargine 100 unit/mL (3 unit subcut 11/21/24 11/21/24 Unknown History mL) subcutaneous pen (Lantus Solostar U-100 Insulin) Exam Height,Weight and Vital Signs: Height 5 ft 7 in Weight 90.718 kg Assessment and Plan Assessment Anesthesia Assessment: Chart Reviewed Documented by User: Earlene Ordoñez MD 01/19/25 07:46 PMFSH Past Medical History Medical History Tinnitus, left ear NAFLD (nonalcoholic fatty liver disease) HTN (hypertension) ADHD Depression Allergic rhinitis Migraines DM type 2 (diabetes mellitus, type 2) Family History Family history of problems with anesthesia: No Surgical History History of Problems with Anesthesia: No Social History Social History Patient Tobacco Use Status: Former Tobacco user Have you been hit, kicked, punched, or otherwise hurt by someone within the past year? If so, by whom?: No Are you DNR?: No Advance Directives: No Advance Directives Information Provided: Yes Meds Allergies Allergy/AdvReac Type Severity Reaction Status Date / Time Penicillins Allergy Severe Anaphylaxis Verified 01/12/25 14:53 Home Medications ?Medication ?Instructions ?Recorded ?Confirmed ?Last Taken ?Type cetirizine 10 mg tablet (24Hour 10 mg PO DAILY PRN 03/18/21 11/21/24 Unknown History Allergy) cholecalciferol (vitamin D3) 25 25 mcg PO DAILY 03/18/21 11/21/24 Unknown History mcg (1,000 unit) capsule dextroamphetamine-amphetamine 10 10 mg PO DAILY 03/18/21 11/21/24 Unknown History mg tablet fluoxetine 10 mg capsule 10 mg PO BID 03/18/21 11/21/24 Unknown History metformin 1,000 mg tablet 1,000 mg PO BID 03/18/21 11/21/24 Unknown History vnpjbrpf-al-ujynt 300 mcg-K 60 1 tab PO DAILY 03/18/21 11/21/24 Unknown History mcg-lycop 600 mcg-lutein 300 mcg tablet (Centrum Silver Men) sumatriptan succinate 25 mg tablet 25 mg PO Q2-4H PRN 03/18/21 11/21/24 Unknown History tamsulosin 0.4 mg capsule 0.4 mg PO BEDTIME 03/18/21 11/21/24 Unknown History vitamin A-vitamin C-vit E-min 1 tab PO DAILY 03/18/21 11/21/24 Unknown History tablet dulaglutide 3 mg/0.5 mL 3 mg subcut QWEEK 08/20/21 11/21/24 01/04/25 History subcutaneous pen injector (Trulicity) atorvastatin 40 mg tablet 40 mg PO DAILY 11/21/24 11/21/24 Unknown History insulin glargine 100 unit/mL (3 unit subcut 11/21/24 11/21/24 Unknown History mL) subcutaneous pen (Lantus Solostar U-100 Insulin) Exam Airway Mallampati Class: II TM Dist: >3cm Neck ROM: Full Heart: rrr Lungs: cta Assessment and Plan Assessment Anesthesia Assessment: Anesthesia Plan Discussed Final Anesthetic Review Family History of Problems with Anesthesia: No History of Problems with Anesthesia: No NPO: Yes ASA Class: III Final Preanesthetic Review: No Changes in Pt Med Stat, Meds/Allgs Chart Reviewed, Consent Obtained/Reviewed and Anes Risks/Benef Reviewed Patient Risk: Intermediate Procedure Risk: Intermediate Anesthetic Plan Anesthetic Plan: GA and Agree w/ Assess. and Plan Disposition: Standard PACU
[2025-01-19] VITALS (7 sets, daily range): BP systolic 132–155; BP diastolic 70–84; PULSE 59–64; RESP 12–18; TEMP 36.2–36.6; O2SAT 94–99; BMI 31.5
[2025-01-19] MEDS: Lactated Ringers 1,000 ML 100 ML IVCONT (06:24)
--- NOTE | 2025-01-19 07:46 | P.OP_ITS ---
Operative Note Operative Note Date of Service: 01/19/25 Narrative: Operative Note Narrative: Preop diagnosis: 1. Left Cubital tunnel syndrome 2. Left carpal tunnel syndrome Postop diagnosis: Same Procedure: 1. Left Cubital Tunnel Release 2. Left carpal tunnel release Surgeon: Arely Freed MD Hull Line Crew Member: None Anesthesia: General Anesthesia Findings: Thickening and fibrosis about the ulnar nerve at the cubital tunnel Implants: none Tourniquet time: A 2 minutes EBL: 5.0 ml Specimen: none Drains: None Complications: None Disposition: Brought to the recovery room in stable condition Plan: Follow-up in 10-14 days for wound check, and suture removal Indications: The patient is 64 years old with left carpal tunnel syndrome . The risks and benefits of operative treatment, including but not limited to risk of damage to blood vessels, nerves, tendons, infection, recurrence, persistent pain or numbness, incomplete resolution of preoperative symptoms, or need for further surgery were discussed with the patient and they wished to proceed with surgery. Procedure: Once consent was obtained patient was brought back to the operating suite and placed in the operating table in a supine position. Perioperative antibiotics and anesthesia was administered by the anesthesia team. The limb was prepped and draped in a standard surgical fashion, and a sterile tourniquet applied to the proximal aspect of the left upper extremity. The limb was elevated exsanguinated with Esmarch bandage and the tourniquet inflated to 250 mm of mercury for a total tourniquet time of 42 minutes. Once assured that we had a good block, a 2.0 cm longitudinal incision was made centered over the left carpal tunnel. The incision was made through the skin to the subcutaneous tissues using a #15 blade. Dissection was made down to the level of the transverse carpal ligament with care being taken to protect the palmar cutaneous nerve. Once the transverse carpal ligament was clearly visualized, a longitudinal incision was made in the transverse carpal ligament 1st using a #15 blade, then using tenotomy scissors under direct visualization. Care was taken to look for and protect the motor branch of the median nerve when seen in this area. Once satisfied with our carpal tunnel release the wound was irrigated with normal saline. A 6 cm gently curved but longitudinally oriented incision was made centered over the cubital tunnel of the left upper extremity. Incision was made through the skin to the subcutaneous tissues using a # 15 Blade. I then dissected down to the level of the medial epicondyle and the cubital tunnel using tenotomy scissors. Care was taken to protect the medial antebrachial cutaneous nerve. The ulnar nerve was identified just posterior to the medial intermuscular septum. The ulnar nerve was released in a proximal to distal direction using tenotomy in iris scissors while directly visualizing and protecting the ulnar nerve. Thickening and fibrosis was appreciated about the ulnar nerve as it passed through the cubital tunnel. The ulnar nerve was assessed as I passed the elbow through full flexion and extension and was found to remain stable within its groove. At this point the tourniquet was deflated and hemostasis obtained with a brief period of local pressure and bipolar electrocautery. The wound was copiously irrigated with normal saline. The subcutaneous layer was closed with 4-0 Vicryl suture, and the skin edges were reapproximated with 5-0 nylon suture. The wound was infiltrated with some 1% lidocaine with epinephrine for postop pain control and sterile dressings were applied. The patient appears to have tolerated the procedure well and with no complications. All digits were well vascularized at the conclusion of the case.
--- NOTE | 2025-01-19 07:46 | MHC.SHP ---
Pre-Procedural Eval Section A - 24 Hr Update-Section A only Date of Service: 01/19/25 The patient is an INPATIENT: No Changes since office visit: No Cold of Flu in the past 2 weeks, No New Medical Problems, No Changes in Medication and No Patient answered all questions The patient has been examined within 24 hours of the surgical procedure. The History & Physical has been completed within 30 days and I have reviewed it.: Yes Section B - Complete if H&P > 30 days Chief Complaint: Lesion of ulnar nerve, left,carpal tunnel Allergies: Allergies Allergy/AdvReac Type Severity Reaction Status Date / Time Penicillins Allergy Severe Anaphylaxis Verified 01/12/25 14:53 Plan I have reviewed the history and physical and performed a pertinent physical examination on my patient. No changes have occurred unless specified. Time Spent With Patient Time: Total time managing care of this patient today ____ minutes.
[2025-01-19] MEDS: Clindamycin Phosphate/D5W 600 MG/50 ML PIGGYBACK 100 MG IV (07:55)
== END 2025-01-19 10:52 | disposition home or self-care (01) ==
PROVIDERS: PCP Internal Medicine; Visit Provider Orthopaedic Surgery
PROC: (CPT 64718; principal; 2025-01-19 07:30)
PROC: (CPT 64721; 2025-01-19 07:30)
DX: G56.02 Carpal tunnel syndrome, left upper limb (principal); G56.22 Lesion of ulnar nerve, left upper limb; I10 Essential (primary) hypertension; E11.9 Type 2 diabetes mellitus without complications; J30.9 Allergic rhinitis, unspecified; K76.0 Fatty (change of) liver, not elsewhere classified; H93.12 Tinnitus, left ear; G43.909 Migraine, unspecified, not intractable, without status migrainosus; F32.A Depression, unspecified; Z79.4 Long term (current) use of insulin; Z79.84 Long term (current) use of oral hypoglycemic drugs; Z79.85 Long-term (current) use of injectable non-insulin antidiabetic drugs; Z79.899 Other long term (current) drug therapy; Z88.0 Allergy status to penicillin; Z87.891 Personal history of nicotine dependence
CPT/HCPCS: 64721; 64718; J0131; J0736; J1100; J1885; J2003; J2004; J2250; J2405; J2704; J2795; J3010

== ENCOUNTER → 2025-01-19 05:49 | Outpatient (BNV) | payer BC, SELFPAY | PROVIDERS: PCP Internal Medicine; Visit Provider Orthopaedic Surgery | DX: G56.02 Carpal tunnel syndrome, left upper limb (principal); G56.22 Lesion of ulnar nerve, left upper limb | CPT/HCPCS: 64718; 64721 ==

== ENCOUNTER 2025-02-01 09:51 | Outpatient (AMB) | payer BC, SELFPAY ==
--- NOTE | 2025-02-01 09:57 | A.OFFVIS_ITS ---
Intake Visit Reasons: PO: LT carpal & cubital tunnel release 01/19/25 AR Intake Note: Irwin is a 64 year old right hand dominant male who presents today for a post operative visit status post left carpal and cubital tunnel release DOS: 01/19/[address] Arely Freed. States his CTS have improved but is having soreness and aches. Sutures removed and steri strips applied. Allergies Penicillins Allergy (Severe, Verified 02/01/25 10:15) Anaphylaxis HPI HPI PO: LT carpal & cubital tunnel release 01/19/25 AR: Details: Irwin is a 64 year old right hand dominant male who presents today for a post operative visit status post left carpal and cubital tunnel release DOS: 01/19/[address] Arely Freed. States his CTS have improved but is having soreness and aches. Sutures removed and steri strips applied. [facility] Medical History Tinnitus, left ear NAFLD (nonalcoholic fatty liver disease) HTN (hypertension) ADHD Depression Allergic rhinitis Migraines DM type 2 (diabetes mellitus, type 2) Social History Comment: counts correct Patient Tobacco Use Status: Former Tobacco user Review of Systems Const All systems reviewed & are unremarkable except as noted in HPI and below Physical Exam Extrem Other: Neuro: Patient reports almost normal sensation of the tips of all digits of the left No thenar or intrinsic wasting. Good APB muscle firing and good finger cross. Vascular: Capillary refill brisk. ROM: Patient can make a fist and extend all their digits. Skin: Well approximated and well healing incision sites noted on the left wrist and elbow No lacerations or abrasions noted. General: No ecchymosis. No erythema or evidence of infection. Assessment & Plan Assessment & Plan (1) Bilateral carpal tunnel syndrome: Code(s): G56.03 - Carpal tunnel syndrome, bilateral upper limbs Category: Medical (2) Cubital tunnel syndrome, bilateral: Code(s): G56.23 - Lesion of ulnar nerve, bilateral upper limbs Category: Medical Plan 1. Status post left carpal and cubital tunnel releases DOS 01/19/2025 Patient appears to be recovering very well postoperatively Patient is educated about the typical recovery course OT referral placed for range of motion, strengthening, desensitization of incision sites Patient is amenable to this plan Follow-up as needed Orders: Orders OT Evaluation and Treatment 02/01/25 G56.03 - Carpal tunnel syndrome, bilateral upper limbs, G56.23 - Lesion of ulnar nerve, bilateral upper limbs Coding Level of Care Code Global (43136) Diagnoses Bilateral carpal tunnel syndrome G56.03 Cubital tunnel syndrome, bilateral G56.23
--- OUTSIDE RECORDS SUMMARY | 2025-02-01 11:17 | XMS_ITS | Encounter Summary ---
Author Organization [facility] Address [address] [place] [address] Care Team Providers Care Auto Service Writer Name Role Phone Landry Lauren DO Primary Care Provider [phone] Encounter Details Date Type Department Care Team (Late st Contact Info) Description 07/28/[address] [facility] - Main Lab [address] [facility] [email or web address] [phone] Landry Lauren DO [address] [place] [phone] Frequency of micturition Social History Tobacco Use [...] atypical urothelial cells. 07/29/2024 6:06 PM EST [facility] ([facility]) [facility] Specimen A Adequacy Satisfactory for evaluation 07/29/2024 6:06 PM [facility] Gross Description A. Urine, Voided, : Received 50 ml of yellow fluid; 1 ThinPrep, 07/29/2024 6:06 PM [facility] Disclaimer Unless otherwise specified, all tissue is 10% NB formalin fixed and paraffin embedded. Technical cytopathology services provided by [facility], at [address] [place] [address] (CLIA # [id number]/Romaine Rodriguez MD, Conservation Science Teacher.) 07/29/2024 6:06 PM [facility] Urine Urine specimen from urethra / Unknown 07/21/2024 07/28/2024 10:54 AM EST Landry Lauren DO LAB CYTOLOGY ORDERABLES Final Result [facility] [address] [place] [address], documented in this encounter Visit Diagnoses Diagnosis Frequency of micturition Urinary frequency documented in this encounter Care Teams Auto Service Writer Relationship Specialty Start Date End Date Landry Lauren DO [address] [place] [phone] PCP - General Internal Medicine 03/12/22 documented as of this encounter
== END 2025-02-01 10:32 | disposition home or self-care (01) ==
LOC: HO.HOS 09:52
PROVIDERS: PCP Internal Medicine
DX: G56.03 Carpal tunnel syndrome, bilateral upper limbs (principal); G56.23 Lesion of ulnar nerve, bilateral upper limbs
CPT/HCPCS: 99024

== ENCOUNTER 2025-03-01 09:12 | Outpatient (AMB) | payer BC, SELFPAY ==
[2025-03-01 09:14] VITALS: BP 143/91; PULSE 66; O2SAT 96; BMI 30.9
--- NOTE | 2025-03-01 09:14 | MHC.OFFVIS ---
Vital Signs 03/01/25 09:14 Height 5 ft 7 in Weight 197 lb 8 oz BMI 30.9 BP 143/91 H Blood Pressure Location Rt brachial Position Sitting Pulse 66 Pulse Source Pulse Oximeter Pulse Oximetry (%) 96 Oxygen Delivery Method Room Air Intake Visit Reasons: Botox Injection 3 months Allergies Penicillins Allergy (Severe, Verified 03/01/25 09:18) Anaphylaxis HPI HPI Botox Injection 3 months: Details: Patient presents for scheduled procedure. Denies any recent cough, cold, infection, fever or other significant changes in medical history since last office visit. [facility] Medical History Tinnitus, left ear NAFLD (nonalcoholic fatty liver disease) HTN (hypertension) ADHD Depression Allergic rhinitis Migraines DM type 2 (diabetes mellitus, type 2) Social History Comment: counts correct Patient Tobacco Use Status: Former Tobacco user Physical Exam Vital Signs: Last Vital Signs Pulse 66 03/01/25 09:14 BP 143/91 H 03/01/25 09:14 Pulse Ox 96 03/01/25 09:14 Oxygen Delivery Method Room Air 03/01/25 09:14 BMI result Body Mass Index 30.9 Office Procedures Botulinum toxin Injection Details: Chemodenervation of Scalp and Neck for Chronic Migraine (155 units as per protocol approved by FDA) After obtaining written consent, pre-procedure blood pressure and heart rate were stable and recorded in the nursing record. The patient was placed in the sitting position. Bilaterally, 31 points along event representative (2 sites), procerus (1 site), frontalis (4 sites), temporalis (8 sites), occipitalis (6 sites), cervical paraspinals (4 sites), and trapezius (6 sites) were identified and prepped with alcohol. Using sterile technique, a 30 gauge 0.5 inch needle (for all sites other than trapezius) and 25 gauge 1.5 inch (for trapezius only) needle was introduced into each muscle and 5 units per site was injected. A total of 155 units were used. Aspirations were negative for blood, CSF and air prior to injection at all sites. The needle was removed, skin cleansed and a sterile bandage was applied where needed. The patient tolerated the procedure well and no complications were encountered. Following the procedure the patient's vital signs were stable. The patient was discharged home in good condition with post-procedural instructions. Time Out: Immediately prior to the procedure, the following was verbally confirmed that there is a signed consent form and that the correct patient, planned procedure, site and side are consistent with documentation and that necessary equipment and/or blood products are available prior to the start of the case. Complications: none EBL: <5 cc 22632 - Migraine Procedure code (CPT) selection complete Office Meds onabotulinumtoxinA 200 unit solution for injection Performing Provider: Wayne Alcala MD Performing Location: [facility] Administered by: Wayne Alcala MD on 03/01/25 11:39 Dose Route Admin Location Dispensed Lot Number Expiration Date [facility] Dish Stacker 200 unit IM 155 ea [id number] 08/19/26 Total Dispensed Waste 155 ea 0 % Assessment & Plan Assessment & Plan (1) Migraines: Code(s): G43.909 - Migraine, unspecified, not intractable, without status migrainosus Category: Medical Qualifiers: Migraine type: chronic without aura Status migrainosus presence: with status migrainosus Intractability: intractable Qualified Code(s): G43.711 - Chronic migraine without aura, intractable, with status migrainosus Plan Patient is status post botox migraine protocol. Patient tolerated procedure well and was discharged home in stable condition with discharge instructions. All questions were answered. We will follow-up via telephone or in clinic to assess response to therapy. A follow-up appointment was made during today's visit. Orders: Orders AMB Botulinum toxin Injection Today G43.909 - Migraine, unspecified, not intractable, without status migrainosus Coding Level of Care Code Procedure Only Diagnoses Intractable chronic migraine without aura and with status migrainosus G43.711 Migraine type: chronic without aura Status migrainosus presence: with status migrainosus Intractability: intractable CPT Codes Botox Injection - Botox 3: 88713 - Migraine ([id number])
--- OUTSIDE RECORDS SUMMARY | 2025-03-01 09:43 | XMS_ITS | Encounter Summary ---
Author Organization [facility] Address [address] [place] [address] Phone Care Team Providers Care Tin Dipper Name Role Phone Elizabeth Mendiola MD Primary Care Provider [phone] Encounter Details Date Type Department Care Team (Late st Contact Info) Description 07/08/2018 Ancillary Orders [facility], X-Ray - [address] [place] [address] Rosmery Abdullahi PA-C [address] [place] [address], [address] [place] [address] [email or web address] Right knee pain, unspecified chronicity Social History Tobacco Use Types Packs/Day Years Used Date Smoking Tobacco: Never Assessed Sex and Gender Information Value Date Recorded Sex Assigned at Not on file Legal Sex Male 9:46 PM EDT Gender Identity Not on file Sexual Orientation Not on file documented as of this encounter Plan of Treatment Not on file documented as of this encounter Results * XR KNEE 4 OR MORE VIEWS (RIGHT) (07/08/2018 4:05 PM EST) Anatomical Region Laterality Modality Knee Right Radiographic Amber ging 07/08/2018 4:24 PM EST Impressions 07/08/2018 4:27 PM EST No evidence of acute fractures. Prepatellar soft tissue swelling. POS - [id number] Narrative 07/08/2018 4:27 PM EST HISTORY: Pain and swelling after fall. COMPARISON: None. VIEWS: Five views. FINDINGS: No suspicious lytic or blastic lesions within the bones. No evidence of lipohemarthrosis. No fractures or dislocations. Minimal spurring. Joint spaces well-maintained. Fairly prominent prepatellar soft tissue swelling. Procedure Note Chava Castañeda MD - 07/08/2018 HISTORY: Pain and swelling after fall. COMPARISON: None. VIEWS: Five views. FINDINGS: No suspicious lytic or blastic lesions within the bones. No evidence oflipohemarthrosis. No fractures or dislocations. Minimal spurring. Joint spaceswell-maintained. Fairly prominent prepatellar soft tissue swelling. IMPRESSION: No evidence of acute fractures. Prepatellar soft tissue swelling. POS - [id number] Rosmery Abdullahi PA-C IMG XR LOWER EXTREMITY Final Result documented in this encounter Visit Diagnoses Diagnosis Right knee pain, unspecified chronicity Right knee pain, unspecified chronicity documented in this encounter Care Teams Tin Dipper Relationship Specialty Start Date End Date Elizabeth Mendiola MD [address] [place] [address] PCP - General Internal Medicine 07/08/18 documented as of this encounter Additional Source Comments The information contained in this document represents components of the legal health record. It is not the complete legal health record.[facility]
--- OUTSIDE RECORDS SUMMARY | 2025-03-01 09:43 | XMS_ITS | Clinical Summary ---
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 COLONOSCOPY 05/14/12 PROCEDURE: HISTORICAL COLONOSCOPY; COMMENT: hemorrhoids; repeat in ten yrs ESOPHAGOGASTRODUODENOSCOPY 09/11- PROCEDURE: WI ESOPHAGOGASTRODUODENOSCOPY TRANSORAL DIAGNOSTIC; COMMENT: reactive gastropathy without [...] 06/10/2022 06/10/2012 Colorectal Cancer Screening: Colonoscopy 07/19/2022 HIV Screening 07/19/2022 Hepatitis C Screening 07/19/2022 Social Influencers of Health Screening 07/19/2022 COVID-19 Vaccine (1 - 2023-2 5 season) 2024 Depression Screening 08/10/2024 Influenza Vaccine (#1) 2025 8, 05/16/2015 Diabetes: Blood Sugar Contro l Test (HGBA1C) 06/25/2025 12/23/2024, 07/27/2024 Diabetes: Annual Urine Albumin-Creatinine Ratio (uACR) 08/24/2025 08/24/2024 Diabetes: Annual GFR (Glomerular Filtration Rate) 12/23/2025 12/23/2024, 07/27/2024 Hypertension/CHF/CAD Annual BMP Blood Test 12/23/2025 12/23/2024, 07/27/2024 Cholesterol Screening (Lipid Panel) 12/23/2029 12/23/2024, 07/27/2024 HIB Vaccines Aged Out No longer [...] Procedure Name Priority Date/Time Associated Diagnosis Comments HEMOGLOBIN A1C Routine 12/23/2024 10:30 AM EDT DM2 (diabetes mellitus, type 2) ([facility] V24, [facility] V28) HTN (hypertension) HLD (hyperlipidemia) Migraine BASIC METABOLIC PANEL Routine 12/23/2024 10:30 AM EDT DM2 (diabetes mellitus, type 2) ([facility] V24, [facility] V28) HTN (hypertension) HLD (hyperlipidemia) Migraine CREATINE KINASE Routine 12/23/2024 10:30 AM EDT DM2 (diabetes mellitus, type 2) ([facility] V24, [facility] V28) HTN (hypertension) HLD (hyperlipidemia) Migraine ASPARTATE AMINOTRANSFERASE Routine 12/23/2024 10:30 AM EDT DM2 (diabetes mellitus, type 2) ([facility] V24, [facility] V28) HTN (hypertension) HLD (hyperlipidemia) Migraine ALANINE AMINOTRANSFERASE Routine 10:30 AM EDT DM2 (diabetes mellitus, type 2) ([facility] V24, [facility] V28) HTN (hypertension) HLD (hyperlipidemia) Migraine LIPID PANEL WITH REFLEX TO DIRECT LDL Routine 12/23/2024 10:30 AM EDT DM2 (diabetes mellitus, type 2) ([facility] [place]24, [facility] V28) HTN (hypertension) HLD (hyperlipidemia) Migraine MICROALBUMIN CREATININE URINE RATIO Routine 08/24/2024 9:42 AM EST Impaired fasting glucose Screening for ischemic heart disease Screening for thyroid disorder Routine general medical examination at a health care facility DM (diabetes mellitus) ([facility] V24, [facility] V28) Stiffness due to immobility Hypertension Bilateral hand swelling from Last 3 Months or Most Recently Relevant to Health Maintenance Results * Lipid panel with reflex to direct LDL (12/23/2024 10:30 AM EDT) Cholesterol 93 0 - 200 mg/dL LAB CHEMISTRY METHOD 12/23/2024 11:40 AM EDT [facility] Triglycerides 57 0 - 150 mg/dL LAB CHEMISTRY METHOD 12/23/2024 11:40 AM EDT [facility] HDL 46 >=40 mg/dL LAB CHEMISTRY METHOD 12/23/2024 11:40 AM EDT [facility] LDL Calculated 36 0 - 100 mg/dL LAB CHEMISTRY METHOD 12/23/2024 11:40 AM EDT [facility] VLDL Cholesterol Gregorio 11.4 mg/dL LAB CHEMISTRY METHOD 12/23/2024 11:40 AM T [facility] Non HDL Chol. (LDL+VLDL) 47 <145 mg/dL LAB CHEMISTRY METHOD 12/23/2024 11:40 AM EDT [facility] Chol/HDL Ratio 2.0 0.0 - 4.4 LAB CHEMISTRY METHOD 12/23/2024 11:40 AM T [facility] Blood Venous blood specimen / Unknown Venipuncture / Unknown 12/23/2024 10:30 AM EDT 12/23/2024 10:30 AM EDT us Daniels Simmons TECHNICAL SALES ENGINEER LAB BLOOD ORDERABLES Final Resul t [facility] [address] [place] [address], * Alanine aminotransferase (12/23/2024 10:30 AM EDT) Pathologist [facility] ALT (SGPT) 31 10 - 60 unit/L LAB CHEMISTRY METHOD 12/23/2024 11:39 AM EDT [facility] Blood Venous blood specimen / Unknown Venipuncture / Unknown 12/23/2024 10:30 AM EDT 12/23/2024 10:30 AM EDT Daniels Simmons TECHNICAL SALES ENGINEER LAB BLOOD ORDERABLES Final Resul t [facility] [address] [place] [address], * Aspartate aminotransferase (12/23/2024 10:30 AM EDT) [facility] AST (SGOT) 20 10 - 42 unit/L LAB CHEMISTRY METHOD 12/23/2024 11:39 AM EDT [facility] Blood Venous blood specimen / Unknown Venipuncture / Unknown 12/23/2024 10:30 AM EDT 12/23/2024 10:30 AM EDT Daniels Simmons TECHNICAL SALES ENGINEER LAB BLOOD ORDERABLES Final Resul t [facility] [address] [place] [address], [place] [phone] * (ABNORMAL) Hemoglobin A1c (12/23/2024 10:30 AM EDT) Pathologist [facility] Hemoglobin A1C 7.0(H) <6.5 % LAB CHEMISTRY METHOD 12/23/2024 1:34 PM EDT [facility] Mean Bld Glu Estim. 154 mg/dL LAB CHEMISTRY METHOD 12/23/2024 1:34 PM EDT [facility] Blood Venous blood specimen / Unknown Venipuncture / Unknown 12/23/2024 10:30 AM EDT 12/23/2024 10:30 AM EDT us Frances Simmons TECHNICAL SALES ENGINEER LAB BLOOD ORDERABLES Final Resul t Performing Organization Address [facility]/ZIP Co de Phone Number [facility] [address] [place] [address], [place] [phone] * Creatine kinase (12/23/2024 10:30 AM EDT) Total CK 174 22 - 269 unit/L LAB CHEMISTRY METHOD 12/23/2024 11:39 AM EDT [facility] Blood Venous blood specimen / Unknown Venipuncture / Unknown 12/23/2024 10:30 AM EDT 12/23/2024 10:30 AM EDT us Frances Simmons TECHNICAL SALES ENGINEER LAB BLOOD ORDERABLES Final Resul t Performing Organization Address [facility]/ZIP Co de Phone Number [facility] [address] [place] [address], [place] [phone] * (ABNORMAL) Basic metabolic panel (12/23/2024 10:30 AM EDT) Pathologist [facility] Sodium 140 133 - 145 mmol/L LAB CHEMISTRY METHOD 12/23/2024 11:54 AM EDT [facility] Potassium 4.0 3.5 - 5.5 mmol/L LAB CHEMISTRY METHOD 12/23/2024 11:54 AM EDT [facility] Chloride 105 96 - 110 mmol/L LAB CHEMISTRY METHOD 12/23/2024 11:54 AM EDT [facility] CO2 29 21 - 32 mmol/L LAB CHEMISTRY METHOD 12/23/2024 11:54 AM EDT [facility] Anion Gap 6 3 - 11 LAB CHEMISTRY METHOD 12/23/2024 11:54 AM EDT [facility] Glucose 119(H) 70 - 100 mg/dL LAB CHEMISTRY METHOD 12/23/2024 11:54 AM EDT [facility] BUN 13 5 - 25 mg/dL LAB CHEMISTRY METHOD 12/23/2024 11:54 AM EDT [facility] Comment:Results verified by repeat testing Creatinine 0.95 0.70 - 1.30 mg/dL LAB CHEMISTRY METHOD 12/23/2024 11:54 AM EDT [facility] eGFR 90 >=60 mL/min/1. 73m2 LAB CHEMISTRY METHOD 12/23/2024 11:54 AM EDT [facility] Comment:Calculation based on the Chronic Kidney Disease Epidemiology Collaboration (CKD-EPI) equation refit without adjustment for race. BUN/Creatinine Ratio 13.7 LAB CHEMISTRY METHOD 12/23/2024 11:54 AM EDT [facility] Calcium 8.8 8.5 - 10.5 mg/dL LAB CHEMISTRY METHOD 12/23/2024 11:54 AM EDT [facility] Blood Venous blood specimen / Unknown Venipuncture / Unknown 12/23/2024 10:30 AM EDT 12/23/2024 10:30 AM EDT us Daniels Simmons TECHNICAL SALES ENGINEER LAB BLOOD ORDERABLES Final Resul t [facility] [address] [place] [address], * Microalbumin creatinine urine ratio (08/24/2024 9:42 AM EST) Creatinine, Urine 154.0 mg/dL LAB CHEMISTRY METHOD 08/24/2024 11:40 AM EST [facility] Microalb, Ur 17.6 0.0 - 29.0 mg/L LAB CHEMISTRY METHOD 08/24/2024 11:40 AM EST [facility] Microalb/Creat Ratio 11 <30 mg/g creat LAB CHEMISTRY METHOD 08/24/2024 11:40 AM EST [facility] Urine Urine specimen obtained by clean catch procedure / Unknown Non-blood Collection / Unknown 08/24/2024 9:42 AM EST 08/24/2024 9:43 AM EST us Daniels Simmons TECHNICAL SALES ENGINEER LAB URINE ORDERABLES Final Resul t [facility] [address] [place] [address], from Last 3 Months or Most Recently Relevant to Health Maintenance Insurance [facility] Care Teams Parking Lot Spotter Relationship Specialty Start Date End Date Landry Lauren DO [facility] [place] [address] PCP - General Internal Medicine 03/12/22
--- OUTSIDE RECORDS SUMMARY | 2025-03-01 09:43 | XMS_ITS | Data Portability ---
Author Organization [place] [facility], Allergy Address [address] [address] Care Team Providers Care Aviation Project Engineer Name Role Phone FIDELINA RAMOS Primary Care Provider FIDELINA RAMOS Referring Provider Assessment Encounter Date [...] Go To The Location Of Their Choice, [id number] 07/30/2024 20:16:29 CBC w/ auto diff 2023 024 BRITT [facility] (Centralized Electronic Ordering - All Locations), Patient Can Go To The Location Of Their Choice, [id number] 07/30/2024 20:16:29 Referral None record ed. Procedures None record ed. Surgeries None record ed. Imaging CT, sinuse s, w/o contra st 2023 024 [email or web address] [facility], [address] [place] [address], [id number], 05/20/2024 12:49:34 CT, maxill ofacia l, w/o contra st 2023 024 [email or web address] [facility], [address] [place] [address], [address], 04/25/2024 14:03:17 Medication Orders budeso nide 0.5 mg/2 mL suspen duncan for nebuli zation 2024 025 [id number], [address] [place] [address], [phone], 11/09/2024 13:25:01 Dupixe nt 300 mg/2 mL subcut aneous pen inject or 2024 025 [facility][id number], [address] [place] [address], [phone], 11/09/2024 13:25:56 Xhance 93 mcg/ac tuatio n breath activa sandee aeroso l 2023 024 [facility] (New Address), [address] [place] [address], [address], [place], [place], [phone], 05/20/2024 13:15:15 Patient TargetsNo targets recorded. Patient InstructionsNo instructions recorded. Reason for Referral None Reported. Results Created Date Observation Date Name Description Value Unit Range Abnormal Flag Note LastModifiedBy Organization Detail LastModifiedTime 07/28/20 24 07/29/2024 CBC WITH DIFFE RENTI AL/PL ATELE T WBC 5.9 x10e3 /uL 3.4-10 .8 normal Not Available [facility] ([facility]) [address] [facility] [address], [place], [address], 07/30/2024 20:16:29 07/28/20 24 07/29/2024 CBC WITH DIFFE RENTI AL/PL ATELE T RBC 5.19 x10e6 /uL 4.14-5 .80 normal Not Available [facility] ([facility]) [address] [place], [address], 07/30/2024 20:16:29 07/28/20 24 07/29/2024 CBC WITH DIFFE RENTI AL/PL ATELE T hemoglobin 14.6 g/dL 13.0-1 7.7 normal Not Available [facility] ([facility]) [address] [place], [address], 07/30/2024 20:16:29 07/28/20 24 07/29/2024 CBC WITH DIFFE RENTI AL/PL ATELE T hematocrit 45.9 % 37.5-5 1.0 normal Not Available [facility] ([facility]) [address] [place], [address], 07/30/2024 20:16:29 07/28/20 24 07/29/2024 CBC WITH DIFFE RENTI AL/PL ATELE T MCV 88 fL 79-97 normal Not Available [facility] ([facility]) [address] [place], [address], 07/30/2024 20:16:29 07/28/20 24 07/29/2024 CBC WITH DIFFE RENTI AL/PL ATELE T MCH 28.1 pg 26.6-3 3.0 normal Not Available [facility] ([facility]) [address] [place], [address], 07/30/2024 20:16:29 07/28/20 24 07/29/2024 CBC WITH DIFFE RENTI AL/PL ATELE T MCHC 31.8 g/dL 31.5-3 5.7 normal Not Available [facility] ([facility]) [address] [place], [address], 07/30/2024 20:16:29 07/28/20 24 07/29/2024 CBC WITH DIFFE RENTI AL/PL ATELE T RDW 12.4 % 11.6-1 5.4 Not Available [facility] ([facility]) [address] [facility], [place], [address], 07/30/2024 20:16:29 07/28/20 24 07/29/2024 CBC WITH DIFFE RENTI AL/PL ATELE T platelets 161 x10e3 /uL 150-45 0 normal Not Available [facility] ([facility]) [address] [facility], [place], [address], 07/30/2024 20:16:29 07/28/20 24 07/29/2024 CBC WITH DIFFE RENTI AL/PL ATELE T neutrophils 57 % not estab. normal Not Available [facility] ([facility]) [address] [facility], [place], [address], 07/30/2024 20:16:29 07/28/20 24 07/29/2024 CBC WITH DIFFE RENTI AL/PL ATELE T lymphs 26 % not estab. normal Not Available [facility] ([facility]) [address] [facility], [place], [address], 07/30/2024 20:16:29 07/28/20 24 07/29/2024 CBC WITH DIFFE RENTI AL/PL ATELE T monocytes 8 % not estab. normal Not Available [facility] ([facility]) [address] [facility], [place], [address], 07/30/2024 20:16:29 07/28/20 24 07/29/2024 CBC WITH DIFFE RENTI AL/PL ATELE T eos 8 % not estab. normal Not Available [facility] ([facility]) [address] [facility], [place], [address], 07/30/2024 20:16:29 07/28/20 24 07/29/2024 CBC WITH DIFFE RENTI AL/PL ATELE T basos 1 % not estab. normal Not Available [facility] ([facility]) [address] [facility], [place], [address], 07/30/2024 20:16:29 07/28/20 24 07/29/2024 CBC WITH DIFFE RENTI AL/PL ATELE T immature cells DRAIN CLEANER PLUMBER Not Available [facility] ([facility]) [address] [facility] [address], [place], [address], 07/30/2024 20:16:29 07/28/20 24 07/29/2024 CBC WITH DIFFE RENTI AL/PL ATELE T neutrophils (absolute) 3.3 x10e3 /uL 1.4-7. 0 normal Not Available [facility] ([facility]) [address] [facility], [place], [address], 07/30/2024 20:16:29 07/28/20 24 07/29/2024 CBC WITH DIFFE RENTI AL/PL ATELE T lymphs (absolute) 1.5 x10e3 /uL 0.7-3. 1 normal Not Available [facility] ([facility]) [address] [place], [address], 07/30/2024 20:16:29 07/28/20 24 07/29/2024 CBC WITH DIFFE RENTI AL/PL ATELE T monocytes(ab solute) 0.5 x10e3 /uL 0.1-0. 9 normal Not Available [facility] ([facility]) [address] [place], [address], 07/30/2024 20:16:29 07/28/20 24 07/29/2024 CBC WITH DIFFE RENTI AL/PL ATELE T eos (absolute) 0.5 x10e3 /uL 0.0-0. 4 above high normal Not Available [facility] ([facility]) [address] [place], [address], 07/30/2024 20:16:29 07/28/20 24 07/29/2024 CBC WITH DIFFE RENTI AL/PL ATELE T baso (absolute) 0.1 x10e3 /uL 0.0-0. 2 normal Not Available [facility] ([facility]) [address] [facility], [place], [address], 07/30/2024 20:16:29 07/28/20 24 07/29/2024 CBC WITH DIFFE RENTI AL/PL ATELE T immature granulocytes 0 % not estab. Not Available [facility] ([facility]) [address] [facility], [place], [address], 07/30/2024 20:16:29 07/28/20 24 07/29/2024 CBC WITH DIFFE RENTI AL/PL ATELE T immature grans (abs) 0.0 x10e3 /uL 0.0-0. 1 Not Available [facility] ([facility]) [address] [facility], [place], [address], 07/30/2024 20:16:29 07/28/20 24 07/29/2024 CBC WITH DIFFE RENTI AL/PL ATELE T NRBC DRAIN CLEANER PLUMBER Not Available [facility] ([facility]) [address] [facility], [place], [address], 07/30/2024 20:16:29 07/28/20 24 07/29/2024 CBC WITH DIFFE RENTI AL/PL ATELE T hematology comments: DRAIN CLEANER PLUMBER Not Available [facility] ([facility]) [address] [facility], [place], [address], 07/30/2024 20:16:29 07/28/20 24 07/30/2024 IMMUN OGLOB ULIN E, TOTAL immunoglobul in E, total 269 IU/mL 6-495 Not Available [facility] ([facility]) [address] [facility], [place], [address], 07/30/2024 20:16:29 08/02/20 24 08/05/2024 C-ANC A+P-A NCA W/REF AUGUSTINA cytoplasmic (C-anca) <1:20 titer neg:<1 :20 Not Available [facility] ([facility]) [address] [facility], [place], [address], 08/06/2024 06:28:18 08/02/20 24 08/05/2024 C-ANC A+P-A [...] ng of posit judy sera with both RI-3 and MPO-A NCA enzym e immun oassa ys. As many as 5% serum sampl es are posit judy only by EIA. Ref. AM J Clin Patho l 1999; 111:5 07-51 3. Not Available [facility] ([facility]) [address] [facility], [place], [address], 08/06/2024 06:28:18 08/02/20 24 08/06/2024 MYELO PEROX IDASE (MPO) myeloperoxid ase (mpo) 438 pmol/ L 0-469 Low CVD Risk <470 Moder ate Risk 470 - 539 High Risk >539 Not Available [facility] ([facility]) [address] [facility], [place], [address], 08/06/2024 06:28:19 08/02/20 24 08/02/2024 SEDIM ENTAT ION RATE- WESTE RGREN sedimentatio n rate-westerg solange 2 mm/HR 0-30 normal Not Available [facility] ([facility]) [address] [facility], [place], [address], 08/06/2024 06:28:20 03/29/20 24 12/23/2019 imagi ng/di agnos tic resul t No observ ation record ed. [email or web address] Not Available 14:54:58 03/29/20 24 12/23/2019 audio gram No observ ation record ed. [email or web address] Not Available 14:55:01 05/20/20 CT, sinus es, w/o contr ast No observ ation record ed. [facility] [address], [address], 05/20/2024 12:49:28 05/23/20 audio gram No observ ation record ed. [email or web address] Not Available 05/10 09:35:11 05/30/20 24 05/20/2024 CT, sinus es, w/o contr ast No observ ation record ed. [facility] [place] [address], [place], [address], 05/30/2024 16:57:59 Result Notes None recorded. Problems Name Problem SNOMED Code Status Onset Date Resolution Date Notes Provider Name and Address Organization Details Recorded Time Bilateral tinnitus 12485734717 02 Active 2019 Tinnitus, bilateral ; Note: Date Diagnosed : 12/23/2019 9:14 AM (H93.13) Not Available [facility] 4 03:23:04 Sensorine ural hearing loss of bilateral ears 163321850 Active 2019 Sensorine ural hearing loss, bilateral ; Note: Date Diagnosed : 12/23/2019 9:40 AM (H90.3) Not Available [facility] 4 03:23:03 Chronic rhinitis 04720351 Active 2019 Chronic rhinitis; Note: Date Diagnosed : 12/23/2019 9:14 AM (J31.0) Not Available [facility] 4 03:23:03 Migraine 47369326 Active 2019 Other migraine, not intractab le, with status migrainos us; Note: Date Diagnosed : 12/23/2019 9:14 AM (G43.801) Not Available [facility] 4 03:23:03 Chronic sinusitis 69940959 Active 2023 PAIGE SARAVIA PA-C [address] [place],[address], [place], [place], [address] , [facility] - [facility] 4 11:35:51 Abnormal auditory perceptio n 39678139 Active 2023 KENDALL IRENE MD [facility] [place],[address], [place], [place], [address] , [facility] - [facility] [place] 4 13:13:50 Abnormal auditory perceptio n 40937442 Active 2023 KENDALL IRENE MD [address] [facility] [place] [facility], [place], [place], [address] , [facility] - [facility] [place] 4 13:14:03 Anxiety 74123388 Active 2023 KENDALL IRENE MD [address] [facility] [place] [facility], [place], [place], [address] , 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 - [facility] [place] 4 14:17:24 Polyp of nasal cavity 321335824 Active 2023 KENDALL IRENE MD [address] [facility] [place] [facility], [place], [place], [address] , [facility] - [facility] [place] 4 14:17:36 Eosinophi l count above reference range 070863432 Active 2023 KENDALL IRENE MD [address] [facility] [place],[address], [place], [address] , [place] [facility] 4 17:12:49 Sinusitis co-occurr ent with nasal polyps 28164177023 102 Active 2023 KENDALL IRENE MD [address] [facility] [place] [facility], [place], [address] , [place] [facility] 4 17:13:02 Polyp of nasal cavity and/or nasal sinus 160291876 Active 2023 KENDALL IRENE MD [address] [facility] [place],[address], [place], [address] , [place] [facility] 4 17:14:06 Problem Notes None recorded. Procedures Surgical History Date Name Laterality Status Provider Name and Address Organization Details Recorded Time 5 JMSNasal/Sinus Endoscopy-PRIOR surgical cavities completed KENDALL ALAMO MD [address] [facility] [place] [address], [place], [address], [place] [facility] 11/09/2024 13:22:35 4 JMSNasal/Sinus Endoscopy-PRIOR surgical cavities completed KENDALL ALAMO MD [address] [facility] [place] [address], [place], [address], [place] [facility] 07/28/2024 14:17:10 4 Comp Audio with Tymps - 68286 & [address]1216 completed ANA SANCHEZ [address] [facility] [place] [address], [place], [address], [place] [facility] 05/20/2024 13:42:34 4 JMSNasal/Sinus Endoscopy-PRIOR surgical cavities completed KENDALL ALAMO MD [address] [facility] [place] [facility], [place], [address], [place] [facility] 03/28/2024 12:32:38 5 Sinus Surgery completed Harshad Lopez [place] - [facility] 03/28/2024 11:00:10 functional endoscopic sinus surgery completed KENDALL ALAMO MD [address] [facility] [place] [address] [place] [address], [address], [place] [facility] 05/20/2024 12:50:32 Imaging Results None recorded. Procedure Notes None recorded. Medical Equipment None Reported. Allergies Allergen ID Allergen Name Allergen Category Reaction Reaction Severity Criticality Documentation Date Start Date Code Code System Note Provider Name and Address Organization Details Recorded Time penicilli n V potassium medicatio n other Not available Not available 12/22/2023 5 RxNorm React ion: unkno wn, unspe cifie d;; Not Available [facility] 4 00:49:12 Medications Name Sig Start Date [...] mg tablet 11/09 completed Medicati on ID: [id number] D uration Value: 30 Brand Name: Zyrtec S end Method: E-Prescr ibed Sub s Allowed: subs OK Speci al Instruct ion: TK 1 T PO HS Medic ationGen ericName : Zyrtec Not Available Not Available Not Available doxycycli ne monohydra te 100 mg tablet TAKE 2 TABLETS BY MOUTH 1 TIME active Not Available Not Available No t Available oxycodone -acetamin ophen 5 mg-325 mg tablet TAKE 1 TABLET BY MOUTH EVERY 6 HOURS NEEDED FOR PAIN active Not Available Not Available No t Available metformin 1,000 mg tablet TAKE 1 [...] eight hours 11/09 completed Medicati on ID: [id number] D uration Value: 10 Prescri bed By Name: Mode Hollins nd Name: mandy arteaga Send Method: E-Prescr ibed Sub s Allowed: subs OK Speci al Instruct ion: place along the nasal aperture three times daily Me dication GenericN louis: yesypiroci n Not Available Not Available Not Available [...] Not Available Not Available No t Available Droplet Pen Needle 32 gauge x USE TO [...] iron tablet 11/09 completed Medicati on ID: [id number] B rand Name: Multilex Send Method: E-Prescr ibed Sub s Allowed: subs OK Medic ationGen ericName : Multilex Not Available Not Available Not Available FreeStyle Andrea 2 Sensor kit USE [...] Available No t Available FreeStyle Andrea 3 [place] USE TO CHECK GLUCOSE AT LEAST 4 [...] Updated DateTime 11/09/2024 170.18 cm 30.5 kg/m2 49380.51 g Lilly Heurta [place] [facility] 11/09/2024 13:00:08 Date Recorded Body height Body mass index (BMI) Body weight Provider Name and Address Organization Details Last Updated DateTime 03/28/2024 170.18 cm 29.8 kg/m2 17390.55 g Harshad Lopez [place] [facility] 03/28/2024 11:05:35 Date Recorded Body height Body mass index (BMI) Body weight Provider Name and Address Organization Details Last Updated DateTime 07/28/2024 170.18 cm 32.1 kg/m2 71867.44 g Harsahd Lopez [place] [facility] 07/28/2024 13:48:04 Social History None recorded. Functional Status None recorded. Mental Status None recorded. Family History Nothing Reported. Medical History Condition Response Nasal or Sinus Problems Y Migraines Y Anxiety Y Nasal polyps Y Past Encounters Encounter ID Performer Location Encounter Start Date Encounter Closed Date Diagnosis/Indication Diagnosis SNOMED-CT Code Diagnosis ICD10 Code Diagnosis Note [id number] KENDALL IRENE MD [facility] [address] [address] 03/28/2024 10:18:36 03/28/2024 11:43:41 Chronic rhinitis 57387332 J31.0 Consider PNN ablation TNSS=11 (2 for sneezing) Chronic sinusitis 590140 00 J32.9 Migraine 41780440 G43.80 1 [id number] KENDALL IRENE MD [facility] [address] [address] 05/20/2024 12:31:43 05/20/2024 14:29:13 Chronic sinusitis 67517961 J32.9 Migraine 80389307 G43.80 1 Abnormal a uditory perception 11707662 H93.293 Sensorineu ral hearing loss of bilateral ears 184091827 H90.3 Audiologic al evaluation results: Right ear: Normal through 4 kHz sloping to moderately severe sensorineu ral hearing loss with excellent word recognitio n. Left ear: Normal through 3 kHz sloping to severe sensorineu ral hearing loss with excellent word recognitio n. Tympanomet ry: Right Ear:Type A Left Ear:Type A Bilateral tinnitus 38433 60028 102 H93.13 [id number] KENDALL IRENE MD [facility] [address] [address] 07/28/2024 13:36:50 07/28/2024 14:20:39 Migraine 25921281 G43.801 Anxiety 97236037 F41.9 Polypoid s inus degeneration 69055208 J33.1 Polyp of nasal cavity 73 3174540 J33.0 [id number] KENDALL IRENE MD [facility] [address] [address] 11/09/2024 12:49:36 11/09/2024 13:30:06 Migraine 78614056 G43.801 Anxiety 95588066 F41.9 Polypoid s inus degeneration 84014747 J33.1 Polyp of nasal cavity 73 4072594 J33.0 Health Concerns Section Related Observation LastModified by Organization Detai ls LastModified Time None Recorded Concern Status LastModified by Organization Details LastModified Time None Recorded Advance Directives Directive None Recorded Payers Insurance Date Sequence Insurance Name Policy Number Policy Randall Covered Member ID Randall Member ID Guarantor Name 11/08/2024 1 [facility] [id number] Irwin Musa Claudia [id number] Irwin Sanchez Claudia Notes Date Note Type Note Provider Name [...] past both at this office and the [facility] clinic without relief of his symptoms. He drinks very little caffeine. KENDALL ALAMO MD [address] [place] [address], [address], [facility] - [facility] 03/28/2024 12:32:56 05/20/2024 text/html Chronic sinus pressure [...] device in left ear KENDALL ALAMO MD [address] [place] [address],[address], [address], [facility] - [facility] 05/20/2024 14:06:20 07/28/2024 text/html Patient with his [...] with weather changes KENDALL ALAMO MD [address] [facility],[address], [address], [facility] - [facility] 07/28/2024 14:19:26 11/09/2024 text/html Patient with his [...] with weather changes KENDALL ALAMO MD [address] [facility],[address], [address], [facility] - [facility] 11/09/2024 13:26:35
== END 2025-03-01 10:01 | disposition home or self-care (01) ==
LOC: HO.PMC 09:13
PROVIDERS: PCP Internal Medicine; Visit Provider Internal Medicine
DX: G43.711 Chronic migraine without aura, intractable, with status migrainosus (principal)
CPT/HCPCS: 64615

== ENCOUNTER → 2025-03-01 09:12 | Outpatient (BNVA) | payer BC, SELFPAY | PROVIDERS: PCP Internal Medicine; Visit Provider Internal Medicine | DX: G43.711 Chronic migraine without aura, intractable, with status migrainosus (principal); H93.12 Tinnitus, left ear; K76.0 Fatty (change of) liver, not elsewhere classified; I10 Essential (primary) hypertension; F90.9 Attention-deficit hyperactivity disorder, unspecified type; F32.A Depression, unspecified; E11.9 Type 2 diabetes mellitus without complications; Z87.891 Personal history of nicotine dependence | CPT/HCPCS: 64615; J0585 ==

== ENCOUNTER 2025-06-02 09:56 | Outpatient (AMB) | payer BC, SELFPAY ==
[2025-06-02 10:00] VITALS: BP 138/72; PULSE 68; RESP 16; O2SAT 96; BMI 31.3
--- NOTE | 2025-06-02 10:00 | MHC.OFFVIS ---
Vital Signs 06/02/25 10:00 Height 5 ft 7 in Weight 200 lb BMI 31.3 BP 138/72 Blood Pressure Location Lt brachial Position Sitting Respiration 16 Pulse 68 Pulse Source Pulse Oximeter Pulse Oximetry (%) 96 Oxygen Delivery Method Room Air Intake Visit Reasons: BOTOX INJECTIONS Perfusionist Required: No Sandblaster Glass: Sandblaster Glass Present Accompanied by: Jaylen Miranda Allergies Penicillins Allergy (Severe, Verified 06/02/25 10:02) Anaphylaxis Medication List - Last Reconciled 06/02/25 by Marilee Medina LPN atorvastatin 40 mg PO DAILY cetirizine (24Hour Allergy) 10 mg PO DAILY PRN cholecalciferol (vitamin D3) 25 mcg PO DAILY dextroamphetamine-amphetamine 10 mg 10 mg PO DAILY dulaglutide (Trulicity) 3 mg subcut QWEEK fluoxetine 10 mg PO BID insulin glargine (Lantus Solostar U-100 Insulin) units subcut metformin 1,000 mg PO BID [id number] mcg (Centrum Silver Men) 1 tab PO DAILY onabotulinumtoxinA (Botox) 155 units intradermal ONCE sumatriptan succinate 25 mg PO Q2-4H PRN tamsulosin 0.4 mg PO BEDTIME vitamin A-vitamin C-vit E-min 1 tab PO DAILY HPI HPI BOTOX INJECTIONS: Details: The patient is a 64-year-old male. He reports difficulty falling asleep, which he associates with prior Adderall use, and experiences variable wake-up times. The patient also has a history of postnasal drip, which has complicated the use of a CPAP machine due to choking episodes. Attempts to manage this with medication have been hindered by cost. Sinus congestion is another concern, believed to worsen his pain and potentially affect his sleep by impairing breathing. [facility] Medical History Tinnitus, left ear NAFLD (nonalcoholic fatty liver disease) HTN (hypertension) ADHD Depression Allergic rhinitis Migraines DM type 2 (diabetes mellitus, type 2) Social History Comment: counts correct Patient Tobacco Use Status: Former Tobacco user Physical Exam Vital Signs: Last Vital Signs Pulse 68 06/02/25 10:00 Resp 16 06/02/25 10:00 BP 138/72 06/02/25 10:00 Pulse Ox 96 06/02/25 10:00 Oxygen Delivery Method Room Air 06/02/25 10:00 BMI result Body Mass Index 31.3 Office Procedures Botulinum toxin Injection Details: Chemodenervation of Scalp and Neck for Chronic Migraine (155 units as per protocol approved by FDA) After obtaining written consent, pre-procedure blood pressure and heart rate were stable and recorded in the nursing record. The patient was placed in the sitting position. Bilaterally, 31 points along wig stylist (2 sites), procerus (1 site), frontalis (4 sites), temporalis (8 sites), occipitalis (6 sites), cervical paraspinals (4 sites), and trapezius (6 sites) were identified and prepped with alcohol. Using sterile technique, a 30 gauge 0.5 inch needle (for all sites other than trapezius) and 25 gauge 1.5 inch (for trapezius only) needle was introduced into each muscle and 5 units per site was injected. A total of 155 units were used. Aspirations were negative for blood, CSF and air prior to injection at all sites. The needle was removed, skin cleansed and a sterile bandage was applied where needed. The patient tolerated the procedure well and no complications were encountered. Following the procedure the patient's vital signs were stable. The patient was discharged home in good condition with post-procedural instructions. Time Out: Immediately prior to the procedure, the following was verbally confirmed that there is a signed consent form and that the correct patient, planned procedure, site and side are consistent with documentation and that necessary equipment and/or blood products are available prior to the start of the case. Complications: none EBL: <5 cc 58867 - Migraine Procedure code (CPT) selection complete Office Meds onabotulinumtoxinA 200 unit solution for injection Performing Provider: Wayne Alcala MD Performing Location: [facility] Administered by: Wayne Alcala MD on 06/06/25 12:40 Dose Route Admin Location Dispensed Lot Number Expiration Date NDC Patient Care Director 200 unit IM 155 ea [id number] 09/10/27 Total Dispensed Waste 155 ea 0 % Assessment & Plan Assessment & Plan (1) Migraines: Code(s): G43.909 - Migraine, unspecified, not intractable, without status migrainosus Category: Medical Qualifiers: Migraine type: chronic without aura Status migrainosus presence: with status migrainosus Intractability: intractable Qualified Code(s): G43.711 - Chronic migraine without aura, intractable, with status migrainosus Plan Patient is status post botox migraine protocol. Patient tolerated procedure well and was discharged home in stable condition with discharge instructions. All questions were answered. We will follow-up via telephone or in clinic to assess response to therapy. A follow-up appointment was made during today's visit. Orders: Orders AMB Botulinum toxin Injection 06/02/25 G43.909 - Migraine, unspecified, not intractable, without status migrainosus Coding Level of Care Code Procedure Only Diagnoses Intractable chronic migraine without aura and with status migrainosus G43.711 Migraine type: chronic without aura Status migrainosus presence: with status migrainosus Intractability: intractable CPT Codes Botox Injection - Botox 3: 76990 - Migraine ([id number])
--- OUTSIDE RECORDS SUMMARY | 2025-06-02 11:11 | XMS_ITS | Clinical Summary ---
Author Organization [facility] Address [address] [place] [phone] Phone Care Team Providers Care Paper Deliverer Name Role Phone Elizabeth Mendiola MD Primary Care Provider [phone] Allergies Active Allergy Reactions Criticality Noted Date Comments Penicillins 07/12/2018 Medications dextroamphetami ne-amphetamine (ADDERALL) 15 mg Tab tablet Take 20 mg by mouth. 0 05/27/2018 Active metFORMIN (GLUCOPHAGE-XR) 500 MG 24 hr tablet 07/11/2018 Active FLUoxetine (PROZAC) 20 MG capsule TAKE 1 CAPSULE BY MOUTH EVERY DAY IN THE MORNING 0 05/21/2018 Active ONETOUCH ULTRA BLUE TEST STRIP Strp strips USE TO TEST BG 4 TIMES WEEKLY 2 07/21/2018 Active Active Problems No known active problems Social History Tobacco Use Types Packs/Day Years Used Date Smoking Tobacco: Every Day Smokeless Tobacco: Never Alcohol Use Standard Drinks/Week Comments No 0 (1 standard drink = 0.6 oz pur e alcohol) Education Answer Date Recorded Are you interested in more education? Not on liz e 12/05/2022 Are you concerned about learning? Not on file 12/05/2022 No 12/05/2022 No 12/05/2022 Digital Access Answer Date Recorded No 01/03/2023 No 01/03/2023 No 01/03/2023 Reliable internet access at home? Not on file 01/03/2023 Device with a working camera? Not on file Sex and Gender Information Value Date Recorded Sex Assigned at Not on file Legal Sex Male 9:46 PM EDT Gender Identity Not on file Sexual Orientation Not on file Last Filed Vital Signs Vital Sign Reading Time Taken Comments Blood Pressure - - Pulse - - Temperature - - Respiratory Rate - - Oxygen Saturation - - Inhaled Oxygen Concentration - - Weight 93 kg (205 lb) 08/09/2018 2:57 PM EST Height 170.2 cm (5' 7 ) 08/09/2018 2:57 PM EST Body Mass Index 32.11 08/09/2018 2:57 PM EST Plan of Treatment Health Maintenance Due Date Last Done Comments Adult Td,Tdap Booster 1961 CREATININE LEVEL 1961 LIPID PANEL 1961 DEPRESSION SCREENING 1973 SMOKING Hx and SMOKELESS TOB ACCO SCREENING 1974 HEPATITIS C SCREENING 1979 HIV ONE-TIME SCREENING (18-6 5 YEARS) 1979 PNEUMOCOCCAL VACCINES (50+ y ears) (1 of 2 - PCV) 1980 COLOGUARD 2006 COLONOSCOPY 2006 COLORECTAL CANCER SCREENING 2006 FIT TEST 2006 FOBT 2006 SIGMOIDOSCOPY 2006 VIRTUAL COLONOSCOPY 2006 ZOSTER VACCINES (1 of 2) 2011 INFLUENZA VACCINE (#1) 2025 COVID-19 VACCINE ( - 2024-2 6 season) 2025 RSV VACCINE (1 - 1-dose 75+ series) 2036 HEPATITIS A VACCINES Aged Out No long er eligible based on patient's age to complete this topic HIB VACCINES Aged Out No longer eligi ble based on patient's age to complete this topic MENINGOCOCCAL VACCINES (ACWY) Aged Out No longer eligible based on patient's age to complete this topic MENINGOCOCCAL VACCINES (B) Aged Out N o longer eligible based on patient's age to complete this topic Medical Devices Not on file Insurance [facility] POS [facility] POS [employer] Care Teams Paper Deliverer Relationship Specialty Start Date End Date Elizabeth Mendiola MD [address] [place] [id number] PCP - General Internal Medicine 07/08/18 Additional Source Comments The information contained in this document represents components of the legal health record. It is not the complete legal health record.[facility]
--- OUTSIDE RECORDS SUMMARY | 2025-06-02 11:11 | XMS_ITS | Encounter Summary ---
Author Organization [facility] Address [address] [place] [address] Phone Care Team Providers Care Globe Mounter Name Role Phone Elizabeth Mendiola MD Primary Care Provider [phone] Encounter Details Date Type Department Care Team (Late st Contact Info) Description 07/08/2018 Ancillary Orders [facility], X-Ray - [address] [place] [address] Rosmery Abdullahi PA-C [address] [place] [address], [address] [place] [address] [email or web address] Right knee [...] fractures. Prepatellar soft tissue swelling. POS - [id number] Narrative 07/08/2018 4:27 PM EST HISTORY: Pain [...] fractures. Prepatellar soft tissue swelling. POS - [id number] Rosmery Abdullahi PA-C IMG XR LOWER EXTREMITY Final Result documented in this encounter Visit Diagnoses Diagnosis Right knee pain, unspecified chronicity Right knee pain, unspecified chronicity documented in this encounter Care Teams Globe Mounter Relationship Specialty Start Date End Date Elizabeth Mendiola MD [address] [place] [address] PCP - General Internal Medicine 07/08/18 documented as of this encounter Additional Source Comments The information contained in this document represents components of the legal health record. It is not the complete legal health record.[facility]
--- OUTSIDE RECORDS SUMMARY | 2025-06-02 11:11 | XMS_ITS | Encounter Summary ---
Author Organization [facility] Address [address] [place] [address] Care Team Providers Care Foot Roentgenologist Name Role Phone Landry Lauren DO Primary Care Provider [phone] Encounter Details Date Type Department Care Team (Late st Contact Info) Description 07/28/2024 Lab Requisition [facility] - Main Lab [address] [facility] [employer] [place] [phone] Landry Lauren DO [address] [place] [phone] Frequency of micturition Social History Tobacco Use [...] atypical urothelial cells. 07/29/2024 6:06 PM EST [facility] Specimen A Adequacy Satisfactory for evaluation 07/29/2024 6:06 PM [facility] Gross Description A. Urine, Voided, : Received 50 ml of yellow fluid; 1 ThinPrep, 07/29/2024 6:06 PM [facility] Disclaimer Unless otherwise specified, all tissue is 10% NB formalin fixed and paraffin embedded. Technical cytopathology services provided by [facility], at [address] [place] [address] (CLIA # [id number]/Romaine Rodriguez MD, Wastewater Analyst Lab Analyst.) 07/29/2024 6:06 PM [facility] Urine Urine specimen from urethra / Unknown 07/21/2024 07/28/2024 10:54 AM EST Landry Lauren DO LAB CYTOLOGY ORDERABLES Final Result [facility] [address] [place] [address], documented in this encounter Visit Diagnoses Diagnosis Frequency of micturition Urinary frequency documented in this encounter Care Teams Foot Roentgenologist Relationship Specialty Start Date End Date Landry Lauren DO [address] [place] [phone] PCP - General Internal Medicine 03/12/22 documented as of this encounter
--- OUTSIDE RECORDS SUMMARY | 2025-06-02 11:11 | XMS_ITS | Clinical Summary ---
Author Organization [facility] Address [address] [place] [address] Phone Care Team Providers Care Remittance Clerk Name Role Phone Landry Lauren DO Primary Care Provider [phone] Surgical History Surgery Date Site/Laterality Comments SINUS SURGERY PROCEDURE: MO UNLISTED PROCEDURE ACCESSORY SINUSES; COMMENT: Chu - frontal to maxillary shunts made COLONOSCOPY 05/14/12 PROCEDURE: HISTORICAL COLONOSCOPY; COMMENT: hemorrhoids; repeat in ten yrs ESOPHAGOGASTRODUODENOSCOPY 09/11- PROCEDURE: MO ESOPHAGOGASTRODUODENOSCOPY TRANSORAL DIAGNOSTIC; COMMENT: reactive gastropathy without [...] Health Maintenance Due Date Last Done Comments Colorectal Cancer Screening: Colonoscopy 1961 Diabetes: Annual Foot Exam 1971 Diabetes: Annual Retina Eye Exam 1971 Hepatitis A Vaccines (1 of 2 - Risk 2-dose series) 1980 RSV Immunization Adult Patients (1 - Risk 50-74 years 1-dose series) 2011 Zoster Vaccines (1 of 2) 2011 Pneumococcal Vaccine: 50+ Years (2 of 2 - PCV) 07/21/2019 07/21/2018 Hepatitis B Vaccines (1 of 3 - Risk 3-dose series) 2021 DTaP,Tdap,and Td Vaccines (2 - Td or Tdap) 06/10/2022 06/10/2012 HIV Screening 07/19/2022 Hepatitis C Screening 07/19/2022 Social Influencers of Health Screening 07/19/2022 Depression Screening 08/10/2024 COVID-19 Vaccine ( - 2023-2 5 season) 2025 Influenza Vaccine (#1) 2025 8, 05/16/2015 Diabetes: Blood Sugar Contro l Test (HGBA1C) 06/25/2025 05/31/2025, 12/23/2024, 07/27/2024 Diabetes: Annual Urine Albumin-Creatinine Ratio (uACR) 08/24/2025 05/31/2025, 08/24/2024 Diabetes: Annual GFR (Glomerular Filtration Rate) 12/23/2025 05/31/2025, 12/23/2024, 07/27/2024 Hypertension/CHF/CAD Annual BMP Blood Test 12/23/2025 05/31/2025, 12/23/2024, 07/27/2024 Cholesterol Screening (Lipid Panel) 12/23/2029 05/31/2025, 12/23/2024, 07/27/2024 HIB Vaccines Aged Out No [...] Date/Time Associated Diagnosis Comments HEMOGLOBIN A1C Routine 05/31/2025 9:49 AM EDT Diabetes mellitus (CMS/HCC V24, CMS/FORMER[facility] V28) Essential hypertension, malignant Hyperlipemia Hematoma Polyphagia(783.6) MICROALBUMIN CREATININE URINE RATIO Routine 05/31/2025 9:49 AM EDT Diabetes mellitus (CMS/HCC V24, CMS/HCC V28) Essential hypertension, malignant Hyperlipemia Hematoma Polyphagia(783.6) BASIC METABOLIC PANEL Routine 05/31/2025 9:49 AM EDT Diabetes mellitus (CMS/HCC V24, CMS/HCC V28) Essential hypertension, malignant Hyperlipemia Hematoma Polyphagia(783.6) CREATINE KINASE Routine 05/31/2025 9:49 AM EDT Diabetes mellitus (CMS/HCC V24, CMS/HCC V28) Essential hypertension, malignant Hyperlipemia Hematoma Polyphagia(783.6) ASPARTATE AMINOTRANSFERASE Routine 05/31/2025 9:49 AM EDT Diabetes mellitus (CMS/HCC V24, CMS/HCC V28) Essential hypertension, malignant Hyperlipemia Hematoma Polyphagia(783.6) ALANINE AMINOTRANSFERASE Routine 025 9:49 AM EDT Diabetes mellitus ([facility] V24, [facility] V28) Essential hypertension, malignant Hyperlipemia Hematoma Polyphagia(783.6) LIPID PANEL WITH REFLEX TO DIRECT LDL Routine 05/31/2025 9:49 AM EDT Diabetes mellitus ([facility] V24, [facility] V28) Essential hypertension, malignant Hyperlipemia Hematoma Polyphagia(783.6) BORRELIA BURGDORFERI ANTIBODY Routine 03/27/2025 8:49 AM EDT Tick bite of multiple sites EHRLICHIA CHAFFEENSIS ANTIBODIES, IGG AND IGM Routine 03/27/2025 8:49 AM EDT Tick bite of multiple sites BABESIA MICROTI ANTIBODIES, IGG AND IGM Routine 03/27/2025 8:49 AM EDT Tick bite of multiple sites ANAPLASMA PHAGOCYTOPHILUM ANTIBODIES, IGG AND IGM Routine 03/27/2025 8:49 AM EDT Tick bite of multiple sites from Last 3 Months Results * Lipid panel with reflex to direct LDL (05/31/2025 9:49 AM EDT) Cholesterol 96 0 - 200 mg/dL LAB CHEMISTRY METHOD 05/31/2025 1:04 PM EDT [facility] Triglycerides 78 0 - 150 mg/dL LAB CHEMISTRY METHOD 05/31/2025 1:04 PM EDT [facility] HDL 52 >=40 mg/dL LAB CHEMISTRY METHOD 05/31/2025 1:04 PM EDT [facility] LDL Calculated 28 0 - 100 mg/dL LAB CHEMISTRY METHOD 05/31/2025 1:04 PM T [facility] Comment:Estimated LDL Calcul ated using equation: Total cholesterol - HDL cholesterol - (Triglycerides/5) VLDL Cholesterol Gregorio 15.6 mg/dL LAB CHEMISTRY METHOD 05/31/2025 1:04 PM EDT [facility] Non HDL Chol. (LDL+VLDL) 44 <145 mg/dL LAB CHEMISTRY METHOD 05/31/2025 1:04 PM EDT [facility] Chol/HDL Ratio 1.8 0.0 - 4.4 LAB CHEMISTRY METHOD 05/31/2025 1:04 PM EDT [facility] Blood Venous blood specimen / Unknown Venipuncture / Unknown 05/31/2025 9:49 AM EDT 05/31/2025 9:49 AM EDT us Daniels Simmons ART DIRECTOR LAB BLOOD ORDERABLES Final Resul t Performing Organization Address City/[facility]/ZIP Co de Phone Number [facility] [address] [place] [address], [place] [phone] * Microalbumin creatinine urine ratio (05/31/2025 9:49 AM EDT) Creatinine, Urine 101.0 mg/dL LAB CHEMISTRY METHOD 05/31/2025 1:10 PM EDT [facility] Microalb, Ur 5.3 0.0 - 29.0 mg/L LAB CHEMISTRY METHOD 05/31/2025 1:10 PM EDT [facility] Microalb/Creat Ratio 5 <30 mg/g creat LAB CHEMISTRY METHOD 05/31/2025 1:10 PM EDT [facility] Urine Urine specimen obtained by clean catch procedure / Unknown Non-blood Collection / Unknown 05/31/2025 9:49 AM EDT 05/31/2025 9:49 AM EDT us Daniels Simmons ART DIRECTOR LAB URINE ORDERABLES Final Resul t Performing Organization Address [facility]/ZIP Co de Phone Number [facility] [address] [place] [address], [place] [phone] * Alanine aminotransferase (05/31/2025 9:49 AM EDT) [facility] ALT (SGPT) 33 10 - 60 unit/L LAB CHEMISTRY METHOD 05/31/2025 1:04 PM EDT [facility] Blood Venous blood specimen / Unknown Venipuncture / Unknown 05/31/2025 9:49 AM EDT 05/31/2025 9:49 AM EDT us Frances Simmons ART DIRECTOR LAB BLOOD ORDERABLES Final Resul t Performing Organization Address City/[facility]/ZIP Co de Phone Number [facility] [address] [place] [address], [place] [phone] * Aspartate aminotransferase (05/31/2025 9:49 AM EDT) [facility] AST (SGOT) 17 10 - 42 unit/L LAB CHEMISTRY METHOD 05/31/2025 1:04 PM EDT [facility] Blood Venous blood specimen / Unknown Venipuncture / Unknown 05/31/2025 9:49 AM EDT 05/31/2025 9:49 AM EDT us Frances Simmons ART DIRECTOR LAB BLOOD ORDERABLES Final Resul t Performing Organization Address [facility] de Phone Number [facility] [address] [place] [address], [place] [phone] * (ABNORMAL) Hemoglobin A1c (05/31/2025 9:49 AM EDT) [facility] Hemoglobin A1C 8.9(H) <6.5 % LAB CHEMISTRY METHOD 05/31/2025 1:26 PM EDT [facility] Mean Bld Glu Estim. 209 mg/dL LAB CHEMISTRY METHOD 05/31/2025 1:26 PM EDT [facility] Blood Venous blood specimen / Unknown Venipuncture / Unknown 05/31/2025 9:49 AM EDT 05/31/2025 9:49 AM EDT [facility] ART DIRECTOR LAB BLOOD ORDERABLES Final Resul t Performing Organization Address [facility]/ZIP Co de Phone Number [facility] [address] [place] [address], [place] [phone] * Creatine kinase (05/31/2025 9:49 AM EDT) Total CK 126 22 - 269 unit/L LAB CHEMISTRY METHOD 05/31/2025 1:04 PM EDT [facility] Blood Venous blood specimen / Unknown Venipuncture / Unknown 05/31/2025 9:49 AM EDT 05/31/2025 9:49 AM EDT [facility] LAB BLOOD ORDERABLES Final Resul t Performing Organization Address [facility] de Phone Number [facility] [address] [place] [address], [place] [phone] * (ABNORMAL) Basic metabolic panel (05/31/2025 9:49 AM EDT) [facility] Sodium 136 133 - 145 mmol/L LAB CHEMISTRY METHOD 05/31/2025 1:04 PM [facility] Potassium 4.1 3.5 - 5.5 mmol/L LAB CHEMISTRY METHOD 05/31/2025 1:04 PM [facility] Chloride 104 96 - 110 mmol/L LAB CHEMISTRY METHOD 05/31/2025 1:04 PM [facility] CO2 27 21 - 32 mmol/L LAB CHEMISTRY METHOD 05/31/2025 1:04 PM [facility] Anion Gap 5 3 - 11 LAB CHEMISTRY METHOD 05/31/2025 1:04 PM [facility] Glucose 208(H) 70 - 100 mg/dL LAB CHEMISTRY METHOD 05/31/2025 1:04 PM [facility] BUN 15 5 - 25 mg/dL LAB CHEMISTRY METHOD 05/31/2025 1:04 PM EDT [facility] Creatinine 1.12 0.70 - 1.30 mg/dL LAB CHEMISTRY METHOD 05/31/2025 1:04 PM EDT [facility] eGFR 74 >=60 mL/min/1. 73m2 LAB CHEMISTRY METHOD 05/31/2025 1:04 PM EDT [facility] Comment:Calculation based on the Chronic Kidney Disease Epidemiology Collaboration (CKD-EPI) equation refit without adjustment for race. BUN/Creatinine Ratio 13.4 LAB CHEMISTRY METHOD 05/31/2025 1:04 PM EDT [facility] Calcium 9.3 8.5 - 10.5 mg/dL LAB CHEMISTRY METHOD 05/31/2025 1:04 PM EDT [facility] Blood Venous blood specimen / Unknown Venipuncture / Unknown 05/31/2025 9:49 AM EDT 05/31/2025 9:49 AM EDT us Daniels Simmons ART DIRECTOR LAB BLOOD ORDERABLES Final Resul t [facility] [address] [place] [address], * Babesia microti antibodies, IGG and IGM (03/27/2025 8:49 AM EDT) Babesia microti IgG Antibodies <1:64 04/02/2025 10:35 PM EDT [facility] Babesia microti IgM Antibodies <1:20 04/02/2025 10:35 PM EDT [facility] Babesia microti Interpretation SEE NOTE 04/02/2025 10:35 PM EDT [facility] Comment: ANTIBODY NOT DETECTED REFERENCE RANGES: IgG <1:64 IgM <1:20 Elevated antibody levels to B. microti indicate exposure to the organism. Human babesiosis infection is transmitted by the bite of an infected Ixodes tick or less frequently from transfusion with blood from an infected donor. Definitive diagnosis is made by identifying intraerythrocytic organisms in peripheral blood. In patients with low parasitemia, antibody detection by IFA is recommended. IgG levels greater than or equal to 1:1024 can be detected in acute phase patients with parasites in blood smears. The IFA assay can be used as a seroepidemiologic tool to study the frequency and distribution of B. microti in endemic areas especially in persons with mixed infections also involving Borrelia burgdorferi. This test was developed and its analytical performance characteristics have been determined by [employer]. It has not been cleared or approved by FDA. This assay has been validated pursuant to the CLIA regulations and is used for clinical purposes. Test Performed at: [facility] [address] [place] [address] Frandy Gibbs MD, PhD Blood Venous blood specimen / Unknown Venipuncture / Unknown 03/27/2025 8:49 AM EDT 03/27/2025 8:49 AM EDT us Daniels Simmons ART DIRECTOR LAB BLOOD ORDERABLES Final Resul t [facility] [address] [place] [address] * Anaplasma phagocytophilum antibodies, IGG and IGM (03/27/2025 8:49 AM EDT) Anaplasma phagocytophilum IgG Ab <1:64 <1:64 03/31/2025 11:00 PM EDT [facility] Anaplasma phagocytophilum IgM Ab <1:20 <1:20 03/31/2025 11:00 PM EDT [facility] Anaplasma phagocytophilum Interpretation SEE BELOW 03/31/2025 11:00 PM EDT [facility] Comment:Antibody Not Detecte d Comment SEE BELOW 03/31/2025 11:00 PM EDT [facility] Comment: Anaplasma phagocytophilum is the tick-borne agent causing Human Granulocytic Ehrlichiosis (HGE). HGE is distinct and separate from Human Monocytic Ehrlichiosis (HME), caused by Ehrlichia chaffeensis. Serologic crossreactivity between A. phagocyto- philum and E. chaffeensis is minimal (5-15%). This test was developed and its analytical performance characteristics have been determined by [facility] [place]. It has not been cleared or approved by the U.S. Food and Drug Administration. This assay has been validated pursuant to the CLIA regulations and is used for clinical purposes. Test Performed by [email or web address], [employer] [place], [address] [place] [address] Huseyin Galloway M.D., Ph.D., Director of Laboratories , CLIA [id number] Blood Venous blood specimen / Unknown Venipuncture / Unknown 03/27/2025 8:49 AM EDT 03/27/2025 8:49 AM EDT us Daniels Simmons ART DIRECTOR LAB BLOOD ORDERABLES Final Resul t [facility] [address] [place] [address] * Ehrlichia chaffeensis antibodies, IgG and IgM (03/27/2025 8:49 AM EDT) Ehrlichia chaffeensis Ab IgG <1:64 <1:64 03/31/2025 11:00 PM EDT [facility] Ehrlichia chaffeensis Ab IgM <1:20 <1:20 03/31/2025 11:00 PM EDT [facility] Interpretation SEE BELOW 03/31/2025 11:00 PM EDT [facility] Comment:Antibody Not Detecte d Comment SEE BELOW 03/31/2025 11:00 PM EDT [facility] Comment: Ehrlichia chaffeenis has been identified as the causative agent of Human Monocytic Ehrlichiosis (HME). Infected individuals produce specific antibodies to E. chaffeensis that can be detected by an immuno- fluorescent antibody (IFA) test. Single IgG IFA titers of 1:64 or greater indicate exposure to E. chaffeensis. A four-fold rise in IgG titers between acute and convalescent samples and/or the presence of IgM antibody against E. chaffeensis suggest recent or current infection. This test was developed and its analytical performance characteristics have been determined by [facility] [place]. It has not been cleared or approved by the U.S. Food and Drug Administration. This assay has been validated pursuant to the CLIA regulations and is used for clinical purposes. Test Performed by [email or web address], [facility], [address] [place] [address] Huseyin Galloway M.D., Ph.D., Director of Laboratories , CLIA [id number] Blood Venous blood specimen / Unknown Venipuncture / Unknown 03/27/2025 8:49 AM EDT 03/27/2025 8:49 AM EDT [employer] ART DIRECTOR LAB BLOOD ORDERABLES Final Resul t [facility] [address] [place] [address] * Borrelia burgdorferi antibody (03/27/2025 8:49 AM EDT) Lyme Ab Negative Negative LAB CHEMISTRY METHOD 03/27/2025 11:51 AM EDT [facility] Comment: No laboratory evidence of infection with B. burgdorferi (Lyme disease). Negative results may occur in patients recently infected (<=14 days) with B. burgdorferi. If recent infection is suspected, repeat testing on a new sample collected in 7- 14 days is recommended. Blood Venous blood specimen / Unknown Venipuncture / Unknown 03/27/2025 8:49 AM EDT 03/27/2025 8:49 AM EDT [employer] LAB BLOOD ORDERABLES Final Resul t [facility] [address] [place] [address], [place] [phone] from Last 3 Months Insurance [facility] Care Teams Remittance Clerk Relationship Specialty Start Date End Date Landry Lauren DO [address] [place] [phone] PCP - General Internal Medicine 03/12/22
--- OUTSIDE RECORDS SUMMARY | 2025-06-02 11:11 | XMS_ITS | Data Portability ---
Author Organization [place] - [facility], Allergy Address [address] [address] Care Team Providers Care Ski Lift Attendant Name Role Phone FIDELINA RAMOS Primary Care Provider FIDELINA RAMOS Referring Provider [phone] Assessment Encounter Date Assessment Date Assessment LastModified [...] to consider revision surgery. f/u 3-4 months kerwinrubénlauraalysharlene Not available 05/20/2024 14:06:16 07/28/2024 07/28/2024 Patient with generalized anxiety, polypoid sinus degeneration and allergy with migraine headaches. He seems to respond briefly to oral steroids. He has mild polypoid degeneration right greater than left. Suggest IgE level and CBC with differential. He may be candidate for biologic therapy with Dupixent or Nucala. I am not sure that surgery will solve his pain. [email or web address] Not available 07/28/2024 14:18:46 11/09/2024 11/09/2024 Patient [...] antihistamines, montelukast and has had prior surgery. [facility] 11/09/2024 13:24:00 05/19/2025 05/19/2025 Irwin Taylor Sr is a 64-year-old male with chronic sinus inflammation, ethmoid and frontal sinus involvement, and recurrent nasal polyps. His biggest concern is the postnasal drainage and stomach upset he gets from the discharge. He has a mildly elevated eosinophil count. The patient will begin budesonide irrigations using the Navage device twice daily to address mucus drainage and inflammation. He will continue DUPIXENT therapy every two weeks, as it has shown improvement in reducing nasal polyps. The polyps on the right side have decreased from a grade 2 to a grade 1, indicating progress. The combination of budesonide and DUPIXENT is expected to further alleviate symptoms. If symptoms persist despite these interventions, surgical options may be considered to address residual polyps and frontal sinus blockage. The patient will be scheduled for a follow-up appointment in approximately four months to evaluate progress and discuss further management. During this visit, he will see Dr. Beach, who specializes in advanced sinus surgery for patients with prior surgical history. FOLLOW-UP: The patient will return in approximately four months for evaluation and consultation with Dr. Beach. sancho Not available 05/19/2025 13:16:18 Plan of Treatment Reminders Order Date Submit Date Provider Last Modified By Organization Details Last Modified Time Details Appointments Establ ished 15 2025 01:15P Mara Beach, DO Not available Not available Not available Lab ige, total, serum 2023 024 CHRISTA [facility] (Centralized Electronic Ordering - All Locations), Patient Can Go To The Location Of Their Choice, [id number] 07/30/2024 20:16:29 CBC w/ auto diff 2023 024 CHRISTA [facility] (Centralized Electronic Ordering - All Locations), Patient Can Go To The Location Of Their Choice, [id number] 07/30/2024 20:16:29 Referral None record ed. Procedures None record ed. Surgeries None record ed. Imaging CT, sinuse s, w/o contra st 2023 024 [email or web address] [facility], [address] [place] [address], [phone], 05/20/2024 12:49:34 CT, maxill ofacia l, w/o contra st 2023 024 [email or web address] [facility], [address] [place] [address], [phone], 04/25/2024 14:03:17 Medication Orders budeso nide 0.5 mg/2 mL suspen duncan for nebuli zation 2024 025 [id number], [address] [place] [address], [id number], 11/09/2024 13:25:01 Dupixe nt 300 mg/2 mL subcut aneous pen inject or 2024 025 [facility] #[id number], [address] [place] [address], [phone], 11/09/2024 13:25:56 Xhance 93 mcg/ac tuatio n breath activa sandee aeroso l 2023 024 [facility] (New Address), [address] [place] [address], [address], [place], [place], [phone], 05/20/2024 13:15:15 Patient TargetsNo targets recorded. Patient Instructions Encounter Date Encounter Id Patient Instructions Last Modified By Organization Details Last Modified Time 05/19/2025 [id number] - Begin budesonide irrigations using the Navage device twice daily. - Continue DUPIXENT therapy every two weeks. - Return for follow-up in approximately four months to evaluate progress and consult with Dr. Beach. sancho Not available 05/19/2025 13:14:55 Please note: Parts of this encounter note have been generated by AI based on audio conversation. Patient consent was required prior to utilizing this technology. Content review was required prior to finalizing the note. sancho Not available 05/19/2025 13:14:55 Reason for Referral None Reported. Results Created Date Observation Date Name Description Value Unit Range Abnormal Flag Note LastModifiedBy Organization Detail LastModifiedTime 07/28/20 24 07/29/2024 CBC WITH DIFFE RENTI AL/PL ATELE T WBC 5.9 x10e3 /uL 3.4-10 .8 normal Not Available [facility] ([facility]) [address] [place], [address], 07/30/2024 20:16:29 07/28/20 24 07/29/2024 CBC WITH DIFFE RENTI AL/PL ATELE T RBC 5.19 x10e6 /uL 4.14-5 .80 normal Not Available [facility] ([facility]) [address] [place], [address], 07/30/2024 20:16:29 07/28/20 24 07/29/2024 CBC WITH DIFFE RENTI AL/PL ATELE T hemoglobin 14.6 g/dL 13.0-1 7.7 normal Not Available [facility] ([facility]) [address] [place], [address], 07/30/2024 20:16:29 07/28/20 24 07/29/2024 CBC WITH DIFFE RENTI AL/PL ATELE T hematocrit 45.9 % 37.5-5 1.0 normal Not Available [facility] ([facility]) [address] [facility], [place], [address], 07/30/2024 20:16:29 07/28/20 24 07/29/2024 CBC WITH DIFFE RENTI AL/PL ATELE T MCV 88 fL 79-97 normal Not Available [facility] ([facility]) [address] [facility], [place], [address], 07/30/2024 20:16:29 07/28/20 24 07/29/2024 CBC WITH DIFFE RENTI AL/PL ATELE T MCH 28.1 pg 26.6-3 3.0 normal Not Available [facility] ([facility]) [address] [place], [address], 07/30/2024 20:16:29 07/28/20 24 07/29/2024 CBC WITH DIFFE RENTI AL/PL ATELE T MCHC 31.8 g/dL 31.5-3 5.7 normal Not Available [facility] ([facility]) [address] [place], [address], 07/30/2024 20:16:29 07/28/20 24 07/29/2024 CBC WITH DIFFE RENTI AL/PL ATELE T RDW 12.4 % 11.6-1 5.4 Not Available [facility] ([facility]) [address] [place], [address], 07/30/2024 20:16:29 07/28/20 24 07/29/2024 CBC WITH DIFFE RENTI AL/PL ATELE T platelets 161 x10e3 /uL 150-45 0 normal Not Available [facility] ([facility]) [address] [facility], [place], [address], 07/30/2024 20:16:29 07/28/20 24 07/29/2024 CBC WITH DIFFE RENTI AL/PL ATELE T neutrophils 57 % not estab. normal Not Available [facility] ([facility]) [address] [facility], [place], [address], 07/30/2024 20:16:29 07/28/20 24 07/29/2024 CBC WITH DIFFE RENTI AL/PL ATELE T lymphs 26 % not estab. normal Not Available [facility] ([facility]) [address] [facility], [place], [address], 07/30/2024 20:16:29 07/28/20 24 07/29/2024 CBC WITH DIFFE RENTI AL/PL ATELE T monocytes 8 % not estab. normal Not Available [facility] ([facility]) [address] [facility], [place], [address], 07/30/2024 20:16:29 07/28/20 24 07/29/2024 CBC WITH DIFFE RENTI AL/PL ATELE T eos 8 % not estab. normal Not Available [facility] ([facility]) [address] [facility], [place], [address], 07/30/2024 20:16:29 07/28/20 24 07/29/2024 CBC WITH DIFFE RENTI AL/PL ATELE T basos 1 % not estab. normal Not Available [facility] ([facility]) [address] [place], [address], 07/30/2024 20:16:29 07/28/20 24 07/29/2024 CBC WITH DIFFE RENTI AL/PL ATELE T immature cells COT ASSEMBLER Not Available [facility] ([facility]) [address] [place], [address], 07/30/2024 20:16:29 07/28/20 24 07/29/2024 CBC WITH DIFFE RENTI AL/PL ATELE T neutrophils (absolute) 3.3 x10e3 /uL 1.4-7. 0 normal Not Available [facility] ([facility]) [address] [place], [address], 07/30/2024 20:16:29 07/28/20 24 07/29/2024 CBC WITH DIFFE RENTI AL/PL ATELE T lymphs (absolute) 1.5 x10e3 /uL 0.7-3. 1 normal Not Available [facility] ([facility]) [address] [place], [address], 07/30/2024 20:16:29 07/28/20 24 07/29/2024 CBC WITH DIFFE RENTI AL/PL ATELE T monocytes(ab solute) 0.5 x10e3 /uL 0.1-0. 9 normal Not Available [facility] ([facility]) [address] [place], [address], 07/30/2024 20:16:29 07/28/20 24 07/29/2024 CBC WITH DIFFE RENTI AL/PL ATELE T eos (absolute) 0.5 x10e3 /uL 0.0-0. 4 above high normal Not Available [facility] ([facility]) [address] [place], [address], 07/30/2024 20:16:29 07/28/20 24 07/29/2024 CBC WITH DIFFE RENTI AL/PL ATELE T baso (absolute) 0.1 x10e3 /uL 0.0-0. 2 normal Not Available [facility] ([facility]) [address] [place], [address], 07/30/2024 20:16:29 07/28/20 24 07/29/2024 CBC WITH DIFFE RENTI AL/PL ATELE T immature granulocytes 0 % not estab. Not Available [facility] ([facility]) [address] [facility], [place], [address], 07/30/2024 20:16:29 07/28/20 24 07/29/2024 CBC WITH DIFFE RENTI AL/PL ATELE T immature grans (abs) 0.0 x10e3 /uL 0.0-0. 1 Not Available [facility] ([facility]) [address] [facility], [place], [address], 07/30/2024 20:16:29 07/28/20 24 07/29/2024 CBC WITH DIFFE RENTI AL/PL ATELE T NRBC COT ASSEMBLER Not Available [facility] ([facility]) [address] [facility], [place], [address], 07/30/2024 20:16:29 07/28/20 24 07/29/2024 CBC WITH DIFFE RENTI AL/PL ATELE T hematology comments: COT ASSEMBLER Not Available [facility] ([facility]) [address] [facility], [place], [address], 07/30/2024 20:16:29 07/28/20 24 07/30/2024 IMMUN OGLOB ULIN E, TOTAL immunoglobul in E, total 269 IU/mL 6-495 Not Available [facility] ([facility]) [address] [facility], [place], [address], 07/30/2024 20:16:29 08/02/20 24 08/05/2024 C-ANC A+P-A NCA W/REF AUGUSTINA cytoplasmic (C-anca) <1:20 titer neg:<1 :20 Not Available [facility] ([facility]) [address] [facility], [place], [address], 08/06/2024 06:28:18 08/02/20 24 08/05/2024 C-ANC A+P-A [...] ng of posit judy sera with both CT-3 and MPO-A NCA enzym e immun oassa ys. As many as 5% serum sampl es are posit judy only by EIA. Ref. AM J Clin Patho l 1999; 111:5 07-51 3. Not Available [facility] ([facility]) [address] [facility], [place], [address], 08/06/2024 06:28:18 08/02/20 24 08/06/2024 MYELO PEROX IDASE (MPO) myeloperoxid ase (mpo) 438 pmol/ L 0-469 Low CVD Risk <470 Moder ate Risk 470 - 539 High Risk >539 Not Available [facility] ([facility]) [address] [facility], [place], [address], 08/06/2024 06:28:19 08/02/20 24 08/02/2024 SEDIM ENTAT ION RATE- WESTE RGREN sedimentatio n rate-westerg solange 2 mm/HR 0-30 normal Not Available [facility] ([facility]) [address] [facility], [place], [address], 08/06/2024 06:28:20 03/29/20 24 12/23/2019 imagi ng/di agnos tic resul t No observ ation record ed. [email or web address] Not Available 14:54:58 03/29/20 24 12/23/2019 audio gram No observ ation record ed. [email or web address] Not Available 14:55:01 05/20/[address], sinus es, w/o contr ast No observ ation record ed. [facility] [address] [place], [address], 05/20/2024 12:49:28 05/23/20 audio gram No observ ation record ed. [email or web address] Not Available 05/10 09:35:11 05/30/20 24 05/20/2024 CT, sinus es, w/o contr ast No observ ation record ed. [facility] emergency department [facility] [address], [place], [address], 05/30/2024 16:57:59 Result Notes None recorded. Problems Name Problem SNOMED Code Status Onset Date Resolution Date Notes Provider Name and Address Organization Details Recorded Time Bilateral tinnitus 98731389811 02 Active 2019 Tinnitus, bilateral ; Note: Date Diagnosed : 12/23/2019 9:14 AM (H93.13) Not Available [facility] 4 03:23:04 Sensorine ural hearing loss of bilateral ears 751802120 Active 2019 Sensorine ural hearing loss, bilateral ; Note: Date Diagnosed : 12/23/2019 9:40 AM (H90.3) Not Available [facility] 4 03:23:03 Chronic rhinitis 12999446 Active 2019 Chronic rhinitis; Note: Date Diagnosed : 12/23/2019 9:14 AM (J31.0) KENDALL IRENE MD [address] [place] [address], [facility], [address] , [facility] - [facility] 5 13:15:26 Migraine 48920674 Active 2019 Other migraine, not intractab le, with status migrainos us; Note: Date Diagnosed : 12/23/2019 9:14 AM (G43.801) Not Available [facility] 4 03:23:03 Chronic sinusitis 17234449 Active 2023 Joellen giles [place] - [facility] 4 11:35:51 Abnormal auditory perceptio n 67836219 Active 2023 KENDALL IRENE MD [address] [facility] [place], [place], [address] , [facility] - [facility] 4 13:13:50 Abnormal auditory perceptio n 61944223 Active 2023 KENDALL IRENE MD [address] [facility] [address], [place], [address] , [place] [facility] 4 13:14:03 Anxiety 20766758 Active 2023 KENDALL IRENE MD 100 [facility],[address] [facility], [place], [address] , [place] - [facility] 4 14:17:18 Polypoid sinus degenerat ion 72925192 Active 2023 KENDALL IRENE MD 100 [facility],[address] [facility], [place], [place], [address] , [facility] - [facility] 5 13:11:32 Polyp of nasal cavity 122031213 Active 2023 KENDALL IRENE MD 100 [facility],[address] [facility], [place], [address] , [facility] - [facility] 4 14:17:36 Eosinophi l count above reference range 266264400 Active 2023 KENDALL IRENE MD 100 [facility],[address], [place], [address] , [facility] - [facility] 4 17:12:49 Sinusitis co-occurr ent with nasal polyps 56354990625 102 Active 2023 KENDALL IRENE MD [address] [facility] [place], [place], [address] , [facility] - [facility] 4 17:13:02 Polyp of nasal cavity and/or nasal sinus 178681348 Active 2023 KENDALL IRENE MD 100 [facility],[address], [facility] [place], [address] , [place] - [facility] 4 17:14:06 Chronic frontoeth moidal sinusitis 213394184 Active 2024 KENDALL IRENE MD [address], [facility], [address] , [place] - [facility] 13:13:58 Problem Notes None recorded. Procedures Surgical History Date Name Laterality Status Provider Name and Address Organization Details Recorded Time 5 JMSNasal/Sinus Endoscopy-PRIOR surgical cavities completed KENDALL ALAMO MD [address] [facility] [place],[address] [facility], [place], [address], [place] - [facility] 05/19/2025 13:14:21 5 JMSNasal/Sinus Endoscopy-PRIOR surgical cavities completed KENDALL ALAMO MD [address] [facility] [place] [address], [place], [address], [place] - [facility] 11/09/2024 13:22:35 4 JMSNasal/Sinus Endoscopy-PRIOR surgical cavities completed KENDALL ALAMO MD [address] [facility] [place] [address], [place], [address], [place] - [facility] 07/28/2024 14:17:10 4 Comp Audio with Tymps - 09154 & 37619 completed ANA SANCHEZ [address] [facility] [place],[address] [facility], [place], [address], [place] - [facility] 05/20/2024 13:42:34 4 JMSNasal/Sinus Endoscopy-PRIOR surgical cavities completed KENDALL ALAMO MD [address] [facility] [place],[address] [facility], [place], [address], [place] - [facility] 03/28/2024 12:32:38 5 Sinus Surgery completed Harshad Lopez [place] - [facility] 03/28/2024 11:00:10 functional endoscopic sinus surgery completed KENDALL ALAMO MD [address] [place] [address], [address], [facility] - [facility] 05/20/2024 12:50:32 Imaging Results None recorded. Procedure Notes None recorded. Medical Equipment None Reported. Allergies Allergen ID Allergen Name Allergen Category Reaction Reaction Severity Criticality Documentation Date Start Date Code Code System Note Provider Name and Address Organization Details Recorded Time penicilli n V potassium medicatio n other Not available Not available 12/22/202309280 5 RxNorm React ion: unkno wn, unspe cifie d;; Not Available [facility] 4 00:49:12 Medications Name Sig Start Date Stop Date Status Note LastModified by Organization Details LastModified Time atorvasta tin 40 mg tablet TAKE 1 TABLET BY MOUTH DAILY active Not Available Not Available No t Available diclofena c 3 % topical gel APPLY TOPICALL Y TO THE AFFECTED AREA TWICE DAILY 05/19 completed Not Available Not Available Not Available lidocaine 4 % topical patch UNWRAP AND APPLY 1 PATCH EXTERNAL LY ONCE DAILY NEEDED active Not Available Not Available No t Available azithromy michael 250 mg tablet TAKE 2 TABLETS BY MOUTH FOR 1 DAY THEN TAKE 1 TABLET BY MOUTH EVERY DAY FOR 4 DAYS 05/19 completed Not Available Not Available Not Available dextroamp hetamine- amphetami ne 10 mg [...] mg tablet 11/09 completed Medicati on ID: [id number] D uration Value: 30 Brand Name: Zyrtec S end Method: E-Prescr ibed Sub s Allowed: subs OK Speci al Instruct ion: TK 1 T PO HS Medic ationGen ericName : Zyrtec Not Available Not Available Not Available doxycycli ne monohydra te 100 mg tablet TAKE 2 TABLETS BY MOUTH 1 TIME 05/19 completed Not Available Not Available Not Available oxycodone -acetamin ophen 5 mg-325 mg tablet TAKE 1 TABLET BY MOUTH EVERY 6 HOURS NEEDED FOR PAIN 05/19 completed Not Available Not Available Not Available methocarb mili 750 mg tablet TAKE 1 TABLET BY MOUTH AT BEDTIME active Not Available Not Available No t [...] eight hours 11/09 completed Medicati on ID: [id number] D uration Value: 10 Prescri bed By [...] 4 mg tablets in a dose pack FOLLOW PACKAGE DIRECTIO NS active Not Available Not Available No t Available albuterol sulfate HFA 90 mcg/actua tion aerosol inhaler INHALE 2 INHALATI ON BY MOUTH EVERY 6 HOURS OR DIRECTED 15 MINUTES BEFORE EXERCISE active Not Available Not Available No t Available oxycodone 5 mg tablet TAKE 1 TABLET BY MOUTH EVERY 4 - 6 HOURS NEEDED active Not Available Not Available No t Available Botox 100 unit injection 11/09 completed Not Available Not Available Not Available chlorhexi dine gluconate 0.12 % mouthwash SWISH AND SPIT 15ML TWICE DAILY [id number] active Not Available Not Available No t Available Lanmildredus Solostar U-100 Insulin 100 unit/mL (3 mL) [...] iron tablet 11/09 completed Medicati on ID: [id number] B rand Name: Multilex Send Method: E-Prescr [...] Available No t Available FreeStyle Andrea 3 [place] USE TO CHECK GLUCOSE AT LEAST 4 [...] Updated DateTime 11/09/2024 170.18 cm 30.5 kg/m2 58611.51 g Lilly Huerta [place] - [facility] 11/09/2024 13:00:08 Date Recorded Body height Body mass index (BMI) Body weight Provider Name and Address Organization Details Last Updated DateTime 03/28/2024 170.18 cm 29.8 kg/m2 51037.55 g Harshad Lopez [place] - [facility] 03/28/2024 11:05:35 Date Recorded Body height Body mass index (BMI) Body weight Provider Name and Address Organization Details Last Updated DateTime 07/28/2024 170.18 cm 32.1 kg/m2 51147.44 g Harshad Lopez [place] - [facility] 07/28/2024 13:48:04 Social History None recorded. Functional Status None recorded. Mental Status None recorded. Family History Nothing Reported. Medical History Condition Response Nasal or Sinus Problems Y Migraines Y Anxiety Y Nasal polyps Y Past Encounters Encounter ID Performer Location Encounter Start Date Encounter Closed Date Diagnosis/Indication Diagnosis SNOMED-CT Code Diagnosis ICD10 Code Diagnosis IMO Codes Diagnosis Note [id number] KENDALL IRENE MD [facility] [address] [address] 03/28/2024 10:18:36 03/28/2024 11:43:41 Chronic rhinitis 11394673 J31.0 Consider PNN ablation TNSS=11 (2 for sneezing) Chronic sinusitis 383588 00 J32.9 Migraine 82659667 G43.80 1 [id number] KENDALL IRENE MD [facility] [address] [address] 05/20/2024 12:31:43 05/20/2024 14:29:13 Chronic sinusitis 84064028 J32.9 Migraine 77521590 G43.80 1 Abnormal a uditory perception 08506659 H93.293 Sensorineu ral hearing loss of bilateral ears 233565552 H90.3 Audiologic al evaluation results: Right ear: Normal through 4 kHz sloping to moderately severe sensorineu ral hearing loss with excellent word recognitio n. Left ear: Normal through 3 kHz sloping to severe sensorineu ral hearing loss with excellent word recognitio n. Tympanomet ry: Right Ear:Type A Left Ear:Type A Bilateral tinnitus 78490 57928 102 H93.13 [id number] KENDALL IRENE MD [facility] [address] [address] 07/28/2024 13:36:50 07/28/2024 14:20:39 Migraine 13762938 G43.801 Anxiety 25620044 F41.9 Polypoid s inus degeneration 96869374 J33.1 Polyp of nasal cavity 73 6967516 J33.0 [id number] KENDALL IRENE MD [facility] [address] [place] [address] 11/09/2024 12:49:36 11/09/2024 13:30:06 Migraine 29549808 G43.801 Anxiety 20715652 F41.9 Polypoid s inus degeneration 47616942 J33.1 Polyp of nasal cavity 73 1233147 J33.0 [id number] KENDALL IRENE MD [facility] [address] [place] [address] 05/19/2025 12:34:57 05/19/2025 13:17:08 Polypoid sinus degeneration 06201820 J33.1 Chronic rhinitis 5047295 6 J31.0 Chronic frontoethmoidal sinusitis 511501129 J32.8 13862278 Health Concerns Section Related Observation LastModified by Organization Detai ls LastModified Time None Recorded Concern Status LastModified by Organization Details LastModified Time None Recorded Advance Directives Directive None Recorded Payers Insurance Date Sequence Insurance Name Policy Number Policy Randall Covered Member ID Randall Member ID Guarantor Name 05/19/2025 1 [facility] [id number] Irwin Taylor [id number] Irwin Taylor Notes Date Note Type Note Provider Name and Address Organization Details Recorded Time 03/28/2024 text/html ROS as noted in the HPI 63 year old male with hx of [...] past both at this office and the [facility] clinic without relief of his symptoms. He drinks very little caffeine. KENDALL ALAMO MD [address] [facility] [address], [place], [address], [facility] - [facility] 03/28/2024 12:32:56 05/20/2024 text/html Chronic sinus pressure [...] in left ear KENDALL ALAMO MD [address] [facility], [place], [address], [facility] 05/20/2024 14:06:20 07/28/2024 text/html ROS as noted in the HPI Patient with history of allergy and chronic [...] with weather changes KENDALL ALAMO MD [address], [place], [address], [facility] 07/28/2024 14:19:26 11/09/2024 text/html ROS as noted in the HPI Patient with history of nasal congestion, polypoid sinus degeneration and [...] with weather changes KENDALL ALAMO MD [address] [facility],[address], [id number], [facility] 11/09/2024 13:26:35 05/19/2025 text/html Irwin Taylor Sr is a 64-year-old male who presents for evaluation of sinus-related symptoms. The patient reports continuous postnasal drip occurring 02/03, which has been bothersome, particularly at night. He has been using DUPIXENT every two weeks as prescribed and feels it has been helpful. Additionally, he occasionally uses Xhance nasal spray but notes difficulty obtaining renewals for this medication. The patient mentions a recent wisdom tooth extraction on the bottom, which required significant cutting due to its sideways orientation. He wonders if this procedure may have impacted his upper sinuses. The patient has a history of sinus surgery performed by Dr. Chu years ago, which he inquires about during the visit. He reports mucus drainage and swelling in the ethmoid and frontal sinus areas, contributing to discomfort and difficulty sleeping. He also experiences upset stomach symptoms related to mucus drainage. The patient has previously been prescribed budesonide for sinus irrigation and still has an adequate supply of this medication. He expresses frustration with insurance approval processes but successfully obtained a refill for DUPIXENT after contacting the insurance commission. No furniture upholsterer apprentice was present during the visit. KENDALL ALAMO MD [address] [facility],[place] [address], [place], [phone], [facility] 05/19/2025 13:16:32
== END 2025-06-02 10:41 | disposition home or self-care (01) ==
LOC: HO.PMC 09:57
PROVIDERS: PCP Internal Medicine; Visit Provider Internal Medicine
DX: G43.909 Migraine, unspecified, not intractable, without status migrainosus (principal); G43.711 Chronic migraine without aura, intractable, with status migrainosus
CPT/HCPCS: 64615

== ENCOUNTER → 2025-06-02 09:56 | Outpatient (BNVA) | payer BC, SELFPAY | PROVIDERS: PCP Internal Medicine; Visit Provider Internal Medicine | DX: G43.711 Chronic migraine without aura, intractable, with status migrainosus (principal) | CPT/HCPCS: 64615; J0585 ==